=== PATIENT | male | born 1945 | race Caucasian/White ===

== ENCOUNTER → 2017-01-28 | Outpatient (CLI) | payer MEDICARE ==
--- NOTE | 2017-01-28 19:49 | MR ---
EXAMINATION TYPE: MR lumbar spine wo con DATE OF EXAM: 01/28/2017 7:03 PM COMPARISON: NONE HISTORY: LBP x 3 years, no trauma/surgery Multiplanar, MultiSpin echo imaging of the lumbar spine was performed. L1-L2: There is mild disc desiccation. Mild circumferential disc bulge greatest posteriorly. Minimal effacement ventral thecal sac. No evidence for herniation or central stenosis. Facet joint arthropath y with mild left foraminal encroachment. L2-L3: Severe disc desiccation. Circumferential disc bulge greatest posteriorly with effacement of th e ventral thecal sac. Constriction of the thecal sac without central stenosis at this time. Facet miguel nt arthropathy resulting in bilateral foraminal encroachment. L3 hemangioma. L3-L4: Severe disc desiccation. Circumferential disc bulge greatest posteriorly with effacement of th e ventral thecal sac. Constriction of the thecal sac without central stenosis at this time. Facet miguel nt arthropathy resulting in bilateral foraminal encroachment. L4-L5: Moderate to severe disc desiccation. Circumferential disc bulge. Hypertrophy of the ligamentum flavum and facet joint arthropathy result in moderate central stenosis. Bilateral foraminal encroach ment. L5-S1: Severe disc desiccation. Grade 1 anterolisthesis of 4 mm L5 on S1. Severe facet joint arthropa thy with left foraminal encroachment. Posterior disc bulge with annular tear. No evidence for rebcea h erniation or central stenosis. Lumbar segments are intact. No paraspinal masses are identified. Conus medullaris has a normal appe arance. Parapelvic right-sided renal cyst. IMPRESSION: 1. Low degenerative disc disease and disc bulging. 2. Moderate central stenosis at L4-5 as discussed above. 3. Grade 1 anterolisthesis L5 on S1.
== END | disposition home or self-care (01) ==
LOC: RADMRIMAIN 17:55
PROVIDERS: ATTEND Family Medicine
DX: M48.061 Spinal stenosis, lumbar region without neurogenic claudication (principal); M51.16 Intervertebral disc disorders with radiculopathy, lumbar region; M43.17 Spondylolisthesis, lumbosacral region
CPT/HCPCS: 72148

== ENCOUNTER → 2018-05-05 | Outpatient (CLI) | payer MEDICARE ==
--- NOTE | 2018-05-05 12:03 | MR ---
EXAMINATION TYPE: MR lumbar spine wo/w con DATE OF EXAM: 05/05/2018 COMPARISON: Prior MR lumbar spine 01/28/2017 HISTORY: LBP, center of back x 1-2 yrs TECHNIQUE: Multiplanar, multisequence images of the lumbar spine were acquired utilizing 10 mL intravenous Gadav ist gadolinium contrast. L1-L2: Posterior broad-based disc bulge causes mild anterior mass effect on the thecal sac. No signif icant central stenosis or foraminal encroachment. L2-L3: No significant central stenosis. There is a posterior broad-based disc bulge causing mild ante rior mass effect on the thecal sac. The scoliosis contributes with lateral extension endplate disc co mplex to cause some foraminal encroachment greater on the right. L3-L4: Posterior broad-based disc bulge is noted. No significant central stenosis. Circumferential ex tension of endplate disc complex encroaches somewhat on the neural foramen greater on the right. Foca l area of low signal on T1 and T2-weighted sequences present possibly extending from the posterior as pect of the L3 vertebral body at the level of the right neural foramen, possible calcification as on prior exam could be related to calcification, could be better seen on CT. There is facet arthropathy with hypertrophy ligamentum flavum. L4-L5: There is facet arthropathy with hypertrophy ligamentum flavum associated with a broad-based po sterior disc bulge, listhesis the results and moderate to severe central canal stenosis, circumferent ial extension of endplate disc complex contributes cause some foraminal encroachment bilaterally. L5-S1: Facet arthropathy changes present. There is a posterior broad-based disc bulge causing mild an terior mass effect on the thecal sac, possibly contact with the proximal S1 nerve root, listhesis con tributes to cause some encroachment of the neural foramen on the left. No significant central stenosi s. Lumbar segments are intact. No paraspinal masses are identified. Conus medullaris has a normal appe arance. There is loss of disc height and signal at intervertebral levels as on prior exam with associ ated endplate discogenic marrow signal change, multilevel vacuum phenomenon and spondylosis consisten t with disc desiccation and degenerative disc disease. Anterolisthesis grade 1 L5-S1, L4-5 as on prio r exam. There is a levoscoliosis in the lumbar spine as on prior. Probable cystic foci associated wit h the kidneys as on prior. Low signal focus within the posterior ilium on the left is stable. No abno rmal enhancement following contrast administration. IMPRESSION: Degenerative disc disease, facet arthropathy, foraminal encroachment as described, spinal stenosis as on prior exam. Additional findings above.
== END | disposition home or self-care (01) ==
LOC: RADMRIMAIN 09:54
PROVIDERS: ATTEND Family Medicine
DX: M48.061 Spinal stenosis, lumbar region without neurogenic claudication (principal); M51.26 Other intervertebral disc displacement, lumbar region; M51.27 Other intervertebral disc displacement, lumbosacral region; M51.36 Other intervertebral disc degeneration, lumbar region; M47.816 Spondylosis without myelopathy or radiculopathy, lumbar region; M47.16 Other spondylosis with myelopathy, lumbar region; M46.96 Unspecified inflammatory spondylopathy, lumbar region; M46.97 Unspecified inflammatory spondylopathy, lumbosacral region
CPT/HCPCS: 82565; 72158; 36415; A9585

== ENCOUNTER 2018-06-25 17:01 | Inpatient (IN) | payer MEDICARE ==
[2018-06-25] MEDS ORDERED: SODIUM CHLORIDE 0.9% 1,000 ML IV STA (17:25)
[2018-06-25] MEDS ORDERED: SODIUM CHLORIDE 0.9% 500 ML 500 ML IV STA (17:25)
--- NOTE | 2018-06-25 17:29 | ED ---
Weakness HPI - General Chief complaint: Weakness Stated complaint: Weakness Time Seen by Provider: 06/25/18 17:18 Source: patient, family, RN notes reviewed Mode of arrival: ambulatory Limitations: no limitations - History of Present Illness Initial comments: This is a 72-year-old male with a history of hypertension who states he's had nausea and vomiting for the past several days with decreased oral intake because he hasn't had an appetite. He states he does have some lightheadedness along with weakness no overt fevers or sweats he does state he has some chills couple days ago. he states his stool has been detailer color but he hasn't had much in way of bowel movement due to decreased oral intake he states his urine is darker than normal. Per his son was with him he is concerned because he looks yellow which is believed to begun yesterday. Also of note he did fall 3 days ago sustaining an abrasion and skin avulsion to his left forearm. No other injuries reported. No clicks palpitation cough phlegm production rhinorrhea or other symptoms. Patient is a nonsmoker nondrinker. MD Complaint: generalized weakness - Related Data Home Medications Medication Instructions Recorded Confirmed Irbesartan/Hydrochlorothiazide 1 tab PO DAILY 06/25/18 06/25/18 [Irbesartan-Hctz 300-12.5 mg Tb] Pravastatin Sodium [Pravachol] 10 mg PO DAILY 06/25/18 06/25/18 amLODIPine [Norvasc] 5 mg PO BID 06/25/18 06/25/18 Allergies Allergy/AdvReac Type Severity Reaction Status Date / Time No Known Allergies Allergy Verified 06/25/18 18:05 Review of Systems ROS Statement: Those systems with pertinent positive or pertinent negative responses have been documented in the HPI. ROS Other: All systems not noted in ROS Statement are negative. Past Medical History Past Medical History: Hypertension History of Any Multi-Drug Resistant Organisms: None Reported Past Surgical History: No Surgical Hx Reported Past Psychological History: No Psychological Hx Reported Smoking Status: Never smoker Past Alcohol Use History: None Reported Past Drug Use History: None Reported General Exam - General Exam Comments Initial Comments: This a well-developed well-nourished awake alert oriented 3 male who does have evidence of icterus Limitations: no limitations General appearance: alert, in no apparent distress Head exam: Present: atraumatic, normocephalic, normal inspection Eye exam: Present: PERRL, EOMI, scleral icterus. Absent: conjunctival injection, periorbital swelling ENT exam: Present: mucous membranes dry Neck exam: Present: normal inspection, full ROM, other (No stridor JVD or bruits). Absent: tenderness, meningismus, lymphadenopathy Respiratory exam: Present: normal lung sounds bilaterally. Absent: respiratory distress, wheezes, rales, rhonchi, stridor Cardiovascular Exam: Present: regular rate, normal rhythm, normal heart sounds. Absent: systolic murmur, diastolic murmur, rubs, gallop, clicks GI/Abdominal exam: Present: soft, normal bowel sounds. Absent: distended, tenderness, guarding, rebound, rigid, bruit, pulsatile mass (Some evidence of hepatomegaly) Rectal exam: Present: deferred Extremities exam: Present: normal inspection, full ROM, normal capillary refill. Absent: tenderness, pedal edema, joint swelling, calf tenderness Back exam: Present: normal inspection Neurological exam: Present: alert, oriented X3, CN II-XII intact Psychiatric exam: Present: normal affect, normal mood Skin exam: Present: warm, dry, intact, other (Evidence of icterus). Absent: normal color, rash Course Vital Signs 06/25/18 06/25/18 17:10 20:00 Temperature 98.4 F Pulse Rate 63 89 Respiratory 18 19 Rate Blood Pressure 130/87 113/84 O2 Sat by Pulse 95 97 Oximetry Medical Decision Making - Medical Decision Making I did reevaluate the patient on several occasions I did discuss [employer] him and his family. Patient does have evidence of acute pancreatitis also cholecystitis with cholelithiasis. I did discuss case Dr. Lyn surgery as well as GI will be consulted. Patient be placed on antibiotics. - Lab Data Result diagrams: 06/25/18 17:30 06/25/18 17:30 Lab Results 06/25/18 06/25/18 06/25/18 Range/Units 17:30 17:30 17:30 WBC (3.8-10.6) k/uL RBC (4.30-5.90) m/uL Hgb (13.0-17.5) gm/dL Hct (39.0-53.0) % MCV (80.0-100.0) fL MCH (25.0-35.0) pg MCHC (31.0-37.0) g/dL RDW (11.5-15.5) % Plt Count (150-450) k/uL Neutrophils % % Lymphocytes % % Monocytes % % Eosinophils % % Basophils % % Neutrophils # (1.3-7.7) k/uL Lymphocytes # (1.0-4.8) k/uL Monocytes # (0-1.0) k/uL Eosinophils # (0-0.7) k/uL Basophils # (0-0.2) k/uL Sodium 131 L (137-145) mmol/L Potassium 3.9 (3.5-5.1) mmol/L Chloride 98 (98-107) mmol/L Carbon Dioxide 22 (22-30) mmol/L Anion Gap 11 mmol/L BUN 24 H (9-20) mg/dL Creatinine 0.94 (0.66-1.25) mg/dL Est GFR (CKD-EPI)AfAm >90 (>60 ml/min/1.73 sqM) Est GFR (CKD-EPI)NonAf 80 (>60 ml/min/1.73 sqM) Glucose 149 H (74-99) mg/dL Calcium 9.8 (8.4-10.2) mg/dL Magnesium 1.9 (1.6-2.3) mg/dL Total Bilirubin 9.0 H (0.2-1.3) mg/dL AST 54 (17-59) U/L ALT 140 H (21-72) U/L Alkaline Phosphatase 206 H (38-126) U/L Ammonia 9 (<30) umol/L Total Creatine Kinase 39 L (55-170) U/L CK-MB (CK-2) 1.1 (0.0-2.4) ng/mL CK-MB (CK-2) Rel Index 2.8 Troponin I <0.012 (0.000-0.034) ng/mL Total Protein 6.8 (6.3-8.2) g/dL Albumin 3.7 (3.5-5.0) g/dL Amylase 240 H (30-110) U/L Lipase (23-300) U/L Hepatitis A IgM Ab 06/25/18 06/25/18 06/25/18 Range/Units 17:30 18:10 19:45 WBC 21.8 H (3.8-10.6) k/uL RBC 5.38 (4.30-5.90) m/uL Hgb 17.2 (13.0-17.5) gm/dL Hct 50.4 (39.0-53.0) % MCV 93.6 (80.0-100.0) fL MCH 32.0 (25.0-35.0) pg MCHC 34.2 (31.0-37.0) g/dL RDW 12.6 (11.5-15.5) % Plt Count 209 (150-450) k/uL Neutrophils % 89 % Lymphocytes % 4 % Monocytes % 4 % Eosinophils % 2 % Basophils % 0 % Neutrophils # 19.4 H (1.3-7.7) k/uL Lymphocytes # 0.9 L (1.0-4.8) k/uL Monocytes # 0.8 (0-1.0) k/uL Eosinophils # 0.4 (0-0.7) k/uL Basophils # 0.0 (0-0.2) k/uL Sodium (137-145) mmol/L Potassium (3.5-5.1) mmol/L Chloride (98-107) mmol/L Carbon Dioxide (22-30) mmol/L Anion Gap mmol/L BUN (9-20) mg/dL Creatinine (0.66-1.25) mg/dL Est GFR (CKD-EPI)AfAm (>60 ml/min/1.73 sqM) Est GFR (CKD-EPI)NonAf (>60 ml/min/1.73 sqM) Glucose (74-99) mg/dL Calcium (8.4-10.2) mg/dL Magnesium (1.6-2.3) mg/dL Total Bilirubin (0.2-1.3) mg/dL AST (17-59) U/L ALT (21-72) U/L Alkaline Phosphatase (38-126) U/L Ammonia (<30) umol/L Total Creatine Kinase (55-170) U/L CK-MB (CK-2) (0.0-2.4) ng/mL CK-MB (CK-2) Rel Index Troponin I (0.000-0.034) ng/mL Total Protein (6.3-8.2) g/dL Albumin (3.5-5.0) g/dL Amylase (30-110) U/L Lipase 2168 H (23-300) U/L Hepatitis A IgM Ab NEGATIVE - EKG Data -: EKG Interpreted by Me EKG shows normal: sinus rhythm (EKG showed sinus rhythm with first-degree AV block PVCs old inferior changes ventricular rate 95405 QRS duration 82 daily since QTC 332/421) - Radiology Data Radiology results: report reviewed (I did review the imaging and report chest x- ray was unremarkable for acute findings KUB did show evidence of a possible gallstone. Ultrasound showed thickened gallbladder wall suggestive of chronic and acute cholecystitis, bile duct was within normal limits.), image reviewed Disposition Clinical Impression: Acute pancreatitis, Cholecystitis, acute with cholelithiasis, Leukocytosis, Dehydration Disposition: ADMITTED IP TO THIS HOSP Condition: Fair Referrals: Alejandro Langley MD [Primary Care Provider] - 1-2 days
[2018-06-25 17:42] LABS: Basophils % (A) 0 %; Eosinophils # (A) 0.4 k/uL (0-0.7); Eosinophils % (A) 2 %; HCT 50.4 % (39.0-53.0); HGB 17.2 gm/dL (13.0-17.5); Lymphocytes # (A) 0.9 k/uL (1.0-4.8); Lymphocytes % (A) 4 %; MCHC 34.2 g/dL (31.0-37.0); MCV 93.6 fL (80.0-100.0); Mean Platelet Volume 6.5; Monocytes # (A) 0.8 k/uL (0-1.0); Monocytes % (A) 4 %; Neutrophils # (A) 19.4 k/uL (1.3-7.7); Neutrophils % (A) 89 %; Platelet Count 209 k/uL (150-450); RBC 5.38 m/uL (4.30-5.90); RDW 12.6 % (11.5-15.5); WBC 21.8 k/uL (3.8-10.6)
[2018-06-25 17:54] LABS: ALT 140 U/L (21-72); AST 54 U/L (17-59); Albumin 3.7 g/dL (3.5-5.0); Alkaline Phosphatase 206 U/L (38-126); Amylase 240 U/L (30-110); Anion Gap 11 mmol/L; Blood Urea Nitrogen 24 mg/dL (9-20); Calcium 9.8 mg/dL (8.4-10.2); Carbon Dioxide 22 mmol/L (22-30); Chloride 98 mmol/L (98-107); Glucose 149 mg/dL (74-99); Magnesium 1.9 mg/dL (1.6-2.3); Potassium 3.9 mmol/L (3.5-5.1); Sodium 131 mmol/L (137-145); Total Protein 6.8 g/dL (6.3-8.2)
[2018-06-25 17:57] LABS: Creatine Kinase 39 U/L (55-170)
--- NOTE | 2018-06-25 17:59 | XR ---
EXAMINATION TYPE: XR chest 2V DATE OF EXAM: 06/25/2018 COMPARISON: NONE HISTORY: Jaundice. Cough TECHNIQUE: Frontal and lateral views of the chest are obtained. FINDINGS: Heart is normal. Lungs are clear of consolidation. There is no pleural effusion. Thoracic aorta is atheromatous. Bony thorax is intact. IMPRESSION: No active cardiopulmonary disease. Atheromatous aorta.
--- NOTE | 2018-06-25 18:01 | XR ---
EXAMINATION TYPE: XR KUB DATE OF EXAM: 06/25/2018 COMPARISON: 01/26/2012 HISTORY: Jaundice TECHNIQUE: 2 views upright FINDINGS: There is no sign of intestinal obstruction or pneumoperitoneum. Fecal pattern is normal. Th ere is a 2.5 cm rounded calcification in the right upper quadrant. There is no sign of a mass. IMPRESSION: Right upper quadrant calcification could relate to calcified gallstone. There appears to be multiple small calcified gallstones on the old exam that are not present on today's exam.
[2018-06-25 18:10] LABS: Creatine Kinase MB 1.1 ng/mL (0.0-2.4); Troponin I <0.012 ng/mL (0.000-0.034)
[2018-06-25 19:00] LABS: Hepatitis A AB IgM Index 0.02; Hepatitis A Antibody IgM NEGATIVE
--- NOTE | 2018-06-25 19:41 | US ---
EXAMINATION TYPE: US gallbladder DATE OF EXAM: 06/25/2018 COMPARISON: NONE CLINICAL HISTORY: Pain. Jaundice. EXAM MEASUREMENTS: Liver Length: 16.0 cm Gallbladder Wall: 0.4 cm CBD: 0.6 cm Right Kidney: 12.0 x 4.8 x 4.3 cm Pancreas: Obscured by bowel gas Liver: Increased attenuation Gallbladder: Stones seen. Wall thickened. Evidence for sonographic Alonso's sign: No CBD: wnl Right Kidney: wnl IMPRESSION: Multiple gallstones. Mild gallbladder wall thickening consistent with acute and chronic c holecystitis. No dilated ducts.
[2018-06-25] MEDS ORDERED: PIPERACILLIN-TAZOBACTAM 3.375 GM in SODIUM CHLORIDE 0.9% 100 ML IVPB STA (20:57)
[2018-06-25] MEDS ORDERED: NALOXONE 0.4 MG/ML 1 ML VIAL IV PRN (20:57)
[2018-06-25] MEDS ORDERED: ONDANSETRON 4 MG/2 ML VIAL IVP PRN (21:02)
--- NOTE | 2018-06-25 21:10 | ED ---
Medical Decision Making - Lab Data Result diagrams: 06/25/18 17:30 06/25/18 17:30 Lab Results 06/25/18 06/25/18 06/25/18 Range/Units 17:30 17:30 17:30 WBC (3.8-10.6) k/uL RBC (4.30-5.90) m/uL Hgb (13.0-17.5) gm/dL Hct (39.0-53.0) % MCV (80.0-100.0) fL MCH (25.0-35.0) pg MCHC (31.0-37.0) g/dL RDW (11.5-15.5) % Plt Count (150-450) k/uL Neutrophils % % Lymphocytes % % Monocytes % % Eosinophils % % Basophils % % Neutrophils # (1.3-7.7) k/uL Lymphocytes # (1.0-4.8) k/uL Monocytes # (0-1.0) k/uL Eosinophils # (0-0.7) k/uL Basophils # (0-0.2) k/uL Sodium 131 L (137-145) mmol/L Potassium 3.9 (3.5-5.1) mmol/L Chloride 98 (98-107) mmol/L Carbon Dioxide 22 (22-30) mmol/L Anion Gap 11 mmol/L BUN 24 H (9-20) mg/dL Creatinine 0.94 (0.66-1.25) mg/dL Est GFR (CKD-EPI)AfAm >90 (>60 ml/min/1.73 sqM) Est GFR (CKD-EPI)NonAf 80 (>60 ml/min/1.73 sqM) Glucose 149 H (74-99) mg/dL Calcium 9.8 (8.4-10.2) mg/dL Magnesium 1.9 (1.6-2.3) mg/dL Total Bilirubin 9.0 H (0.2-1.3) mg/dL AST 54 (17-59) U/L ALT 140 H (21-72) U/L Alkaline Phosphatase 206 H (38-126) U/L Ammonia 9 (<30) umol/L Total Creatine Kinase 39 L (55-170) U/L CK-MB (CK-2) 1.1 (0.0-2.4) ng/mL CK-MB (CK-2) Rel Index 2.8 Troponin I <0.012 (0.000-0.034) ng/mL Total Protein 6.8 (6.3-8.2) g/dL Albumin 3.7 (3.5-5.0) g/dL Amylase 240 H (30-110) U/L Lipase (23-300) U/L Hepatitis A IgM Ab 06/25/18 06/25/18 06/25/18 Range/Units 17:30 18:10 19:45 WBC 21.8 H (3.8-10.6) k/uL RBC 5.38 (4.30-5.90) m/uL Hgb 17.2 (13.0-17.5) gm/dL Hct 50.4 (39.0-53.0) % MCV 93.6 (80.0-100.0) fL MCH 32.0 (25.0-35.0) pg MCHC 34.2 (31.0-37.0) g/dL RDW 12.6 (11.5-15.5) % Plt Count 209 (150-450) k/uL Neutrophils % 89 % Lymphocytes % 4 % Monocytes % 4 % Eosinophils % 2 % Basophils % 0 % Neutrophils # 19.4 H (1.3-7.7) k/uL Lymphocytes # 0.9 L (1.0-4.8) k/uL Monocytes # 0.8 (0-1.0) k/uL Eosinophils # 0.4 (0-0.7) k/uL Basophils # 0.0 (0-0.2) k/uL Sodium (137-145) mmol/L Potassium (3.5-5.1) mmol/L Chloride (98-107) mmol/L Carbon Dioxide (22-30) mmol/L Anion Gap mmol/L BUN (9-20) mg/dL Creatinine (0.66-1.25) mg/dL Est GFR (CKD-EPI)AfAm (>60 ml/min/1.73 sqM) Est GFR (CKD-EPI)NonAf (>60 ml/min/1.73 sqM) Glucose (74-99) mg/dL Calcium (8.4-10.2) mg/dL Magnesium (1.6-2.3) mg/dL Total Bilirubin (0.2-1.3) mg/dL AST (17-59) U/L ALT (21-72) U/L Alkaline Phosphatase (38-126) U/L Ammonia (<30) umol/L Total Creatine Kinase (55-170) U/L CK-MB (CK-2) (0.0-2.4) ng/mL CK-MB (CK-2) Rel Index Troponin I (0.000-0.034) ng/mL Total Protein (6.3-8.2) g/dL Albumin (3.5-5.0) g/dL Amylase (30-110) U/L Lipase 2168 H (23-300) U/L Hepatitis A IgM Ab NEGATIVE Disposition Clinical Impression: Acute pancreatitis, Cholecystitis, acute with cholelithiasis, Leukocytosis, Dehydration, Jaundice Disposition: ADMITTED IP TO THIS HOSP Condition: Fair Referrals: Alejandro Langley MD [Primary Care Provider] - 1-2 days
[2018-06-25] MEDS: HYDROmorphone 0.5 MG/0.5 ML SYRINGE IVP PRN (21:33)
[2018-06-25] MEDS: SODIUM CHLORIDE 0.9% 1,000 ML IV SCH (23:25)
[2018-06-26 03:50] LABS: Hepatitis B Core IgM Non-Reactive (Non-Reactive)
[2018-06-26 04:23] LABS: Appearance,Urine Cloudy (Clear); Bilirubin,Urine 1+ (Negative); Blood,Urine Moderate (Negative); Color,Urine Dark Brown; Glucose,Urine (UA) Negative (Negative); Granular Casts,Urine 16 /lpf (0); Hyaline Casts,Urine 224 /lpf (0-2); Ketones,Urine 1+ (Negative); Leukocyte Esterase,Urine Large (Negative); Mucus,Urine Many /hpf; Nitrite,Urine Negative (Negative); PH, Urine 5.5 (5.0-8.0); Protein,Urine 1+ (Negative); RBC,Urine >182 /hpf (0-5); Specific Gravity,Urine 1.028 (1.001-1.035); Squamous Epithelial Cell,Urine 1 /hpf (0-4); Urobilinogen,Urine <2.0 mg/dL (<2.0); WBC,Urine 101 /hpf (0-5)
[2018-06-26] MEDS: SODIUM CHLORIDE 0.9% 1,000 ML IV SCH ×3 (05:33→22:15)
[2018-06-26] MEDS: PIPERACILLIN-TAZOBACTAM 3.375 GM in SODIUM CHLORIDE 0.9% 100 ML IVPB SCH ×2 (07:16→16:36)
--- NOTE | 2018-06-26 09:51 | P.CONS ---
History of Present Illness - Reason for Consult Consult date: 06/26/18 Jaundice pancreatitis Requesting physician: Blayne Lyn - Chief Complaint Jaundice - History of Present Illness 72-year-old gentleman with no significant past medical history, hypertension, presents with acute onset of painless jaundice without fever chills hematemesis hematochezia or melena. Patient was last few days yellowing of the skin with dark colored urine. 5 pound weight loss over last week no appetite changes. No history of known liver disorders. No history of pancreatitis or hepatitis or jaundice. No changes in medications. No history of alcoholism. Admission white count 21.8. Hemoglobin 17.2. BUN 24. Creatinine 0.9. Total bilirubin 9. AST 54. ALT 140. AP 206. Ammonia 9. Lipase 2168. Amylase 240. Hepatitis screen nonreactive. Ultrasound abdomen multiple gallstones with mild gallbladder wall thickening consistent with acute and chronic cholecystitis. No dilated ducts. CBD 0.6 m. Review of Systems Constitutional: Denies fever, chills, sweats, weight gain, or loss. HEENT: Negative for migraines, blurred vision or loss, earaches, drainage, tinnitus, oral mucosal lesions, dysphagia, or odynophagia. Cardiac: Negative for chest pain, arrhythmias, or palpitation. Respiratory: Negative for shortness of breath, hemoptysis, cough, or sputum production. Gastrointestinal: See HPI for pertinent findings. Genitourinary: Negative for hematuria, urgency, frequency, polyuria, dysuria, or penile discharge. Musculoskeletal: Negative for muscle aches, swelling, arthritis, and arthralgias. Neurologic: Negative for stroke or TIA. Endocrine: Negative for thyroid problems. Skin: Negative for rash or itching. Psychiatric: Negative history for depression and anxiety Past Medical History Past Medical History: Hypertension Additional Past Medical History / Comment(s): degenerative back disease History of Any Multi-Drug Resistant Organisms: None Reported Past Surgical History: No Surgical Hx Reported Past Anesthesia/Blood Transfusion Reactions: No Reported Reaction, Unable to Obtain Past Psychological History: No Psychological Hx Reported Smoking Status: Never smoker Past Alcohol Use History: None Reported Past Drug Use History: None Reported - Past Family History Mother Family Medical History: No Reported History Father History Unknown: Yes Family Medical History: Cancer, Hypertension, Pneumonia Additional Family Medical History / Comment(s): prostate cancer Medications and Allergies Home Medications Medication Instructions Recorded Confirmed Type Irbesartan/Hydrochlorothiazide 1 tab PO DAILY 06/25/18 06/25/18 History [Irbesartan-Hctz 300-12.5 mg Tb] Pravastatin Sodium [Pravachol] 10 mg PO DAILY 06/25/18 06/25/18 History amLODIPine [Norvasc] 5 mg PO BID 06/25/18 06/25/18 History Allergies Allergy/AdvReac Type Severity Reaction Status Date / Time No Known Allergies Allergy Verified 06/25/18 18:05 Physical Exam Vitals: Vital Signs Temp Pulse Pulse Resp BP BP Pulse Ox 06/26/18 07:28 98.3 F 76 16 123/78 94 L 06/26/18 03:55 18 06/26/18 01:30 98.0 F 76 17 129/75 95 06/26/18 00:05 18 06/25/18 22:25 97.9 F 95 20 156/95 94 L 06/25/18 22:13 118/92 06/25/18 22:00 91 13 143/106 93 L 06/25/18 21:00 89 23 122/84 97 06/25/18 20:00 89 19 113/84 97 06/25/18 17:10 98.4 F 63 18 130/87 95 Intake and Output 06/25/18 06/26/18 06/26/18 22:59 06:59 14:59 Output Total 625 Balance -625 Output: Urine 625 Other: # Voids 1 Weight 106.594 kg General appearance: The patient is alert, oriented, in no acute distress. Jaundice. HET: Head is normocephalic and atraumatic. Pupils are equal and reactive. Sclerae icterus. Oropharynx is clear without lesions. Neck: Supple without lymphadenopathy. Trachea midline. Heart: S1 S2. Regular rate and rhythm. Lungs: No crackles or wheezes are heard. Abdomen: Soft, nontender, nondistended with bowel sounds. No peritoneal signs. No palpable organomegaly or masses. Extremities: Normal skin color and turgor. No cyanosis, rash, ulceration, clubbing, or edema. Radial and pedal pulses are 2/4 bilaterally. Neurological: No focal deficits. Strength and sensation are grossly intact. Results CBC & Chem 7: 06/25/18 17:30 06/25/18 17:30 Labs: Abnormal Lab Results - Last 24 Hours (Table) 06/25/18 06/25/18 06/25/18 Range/Units 17:30 17:30 17:30 WBC 21.8 H (3.8-10.6) k/uL Neutrophils # 19.4 H (1.3-7.7) k/uL Lymphocytes # 0.9 L (1.0-4.8) k/uL Sodium 131 L (137-145) mmol/L BUN 24 H (9-20) mg/dL Glucose 149 H (74-99) mg/dL Total Bilirubin 9.0 H (0.2-1.3) mg/dL ALT 140 H (21-72) U/L Alkaline Phosphatase 206 H (38-126) U/L Total Creatine Kinase 39 L (55-170) U/L Amylase 240 H (30-110) U/L Lipase (23-300) U/L Urine Protein (Negative) Urine Ketones (Negative) Urine Blood (Negative) Urine Bilirubin (Negative) Ur Leukocyte Esterase (Negative) Urine RBC (0-5) /hpf Urine WBC (0-5) /hpf Hyaline Casts (0-2) /lpf Urine Mucus (None) /hpf 06/25/18 06/26/18 Range/Units 19:45 02:25 WBC (3.8-10.6) k/uL Neutrophils # (1.3-7.7) k/uL Lymphocytes # (1.0-4.8) k/uL Sodium (137-145) mmol/L BUN (9-20) mg/dL Glucose (74-99) mg/dL Total Bilirubin (0.2-1.3) mg/dL ALT (21-72) U/L Alkaline Phosphatase (38-126) U/L Total Creatine Kinase (55-170) U/L Amylase (30-110) U/L Lipase 2168 H (23-300) U/L Urine Protein 1+ H (Negative) Urine Ketones 1+ H (Negative) Urine Blood Moderate H (Negative) Urine Bilirubin 1+ H (Negative) Ur Leukocyte Esterase Large H (Negative) Urine RBC >182 H (0-5) /hpf Urine WBC 101 H (0-5) /hpf Hyaline Casts 224 H (0-2) /lpf Urine Mucus Many H (None) /hpf US - abdomen: report reviewed (Dr. Gonsales) Assessment and Plan (1) Jaundice Narrative/Plan: 72-year-old gentleman admitted with acute onset of painless obstructive jaundice, leukocytosis, acute pancreatitis with elevated liver function tests hyperbilirubinemia. Ultrasound reported multiple gallstones with no dilation of biliary ducts. Differentials to consider but not excluded choledocholithiasis possible biliary stricture disease possible neoplasm. Current Visit: Yes Status: Acute Code(s): R17 - UNSPECIFIED JAUNDICE SNOMED Code(s): 27678053 Plan: 1. Daily CBC CMP lipase. We'll check PT/INR. CT abdomen and pelvis with IV contrast ordered. ERCP versus MRCP based on clinical course. 2. Protonix 40 mg daily. Nothing by mouth except medications until CT can be reviewed. Will obtain CA-19-9 and CEA. IV antibiotics. Thank you for this kind referral and the opportunity to participate in the care of your patient. This consultation was discussed with Dr. Gonsales. The impression and plan of care have been directed as dictated.
[2018-06-26 09:53] LABS: Basophils % (A) 0 %; Eosinophils # (A) 0.3 k/uL (0-0.7); Eosinophils % (A) 2 %; HCT 47.4 % (39.0-53.0); HGB 16.2 gm/dL (13.0-17.5); Lymphocytes # (A) 0.8 k/uL (1.0-4.8); Lymphocytes % (A) 5 %; MCH 31.9 pg (25.0-35.0); MCHC 34.2 g/dL (31.0-37.0); MCV 93.3 fL (80.0-100.0); Mean Platelet Volume 6.9; Monocytes # (A) 0.8 k/uL (0-1.0); Monocytes % (A) 5 %; Neutrophils # (A) 14.2 k/uL (1.3-7.7); Neutrophils % (A) 87 %; Platelet Count 202 k/uL (150-450); RBC 5.08 m/uL (4.30-5.90); RDW 13.7 % (11.5-15.5); WBC 16.2 k/uL (3.8-10.6)
[2018-06-26 10:02] LABS: ALT 103 U/L (21-72); AST 30 U/L (17-59); Albumin 3.1 g/dL (3.5-5.0); Alkaline Phosphatase 150 U/L (38-126); Anion Gap 10 mmol/L; Blood Urea Nitrogen 21 mg/dL (9-20); Carbon Dioxide 25 mmol/L (22-30); Chloride 99 mmol/L (98-107); Glucose 100 mg/dL (74-99); Lipase 1146 U/L (23-300); Potassium 4.2 mmol/L (3.5-5.1); Sodium 134 mmol/L (137-145)
--- NOTE | 2018-06-26 10:06 | P.GSCN ---
<Christen Nair - Last Filed: 06/26/18 09:59> History of Present Illness Consult date: 06/26/18 Reason for Consult: Jaundice, pancreatitis Requesting physician: Flaquito Patino History of present illness: CHIEF COMPLAINT: Jaundice HISTORY OF PRESENT ILLNESS: 72-year-old male who presented to the emergency room due to jaundice. Patient reports his daughters notice his skin was turning more yellow over the past 3-4 days and advised him to come to the emergency room for further evaluation. Patient denies abdominal pain. He does report on Friday of this week he was experiencing nausea and 2 small episodes of vomiting. Patient reports decreased appetite and states he has had decreased oral intake since Friday. Reports dark urine. Last BM was friday and was normal in characteristics per patient. Denies fever or chills. Denies alcohol use. PAST MEDICAL HISTORY: See list. PAST SURGICAL HISTORY: See list. SOCIAL HISTORY: No illicit drug use. REVIEW OF SYSTEMS: CONSTITUTIONAL: Denies fever or chills. HEENT: Denies blurred vision, vision changes, or eye pain. Denies hemoptysis CARDIOVASCULAR: Denies chest pain or pressure. RESPIRATORY: No shortness of breath. GASTROINTESTINAL: Refer to HPI for pertinent findings HEMATOLOGIC: Denies bleeding disorders. GENITOURINARY: Denies any blood in urine. Reports dark urine. SKIN: Denies pruitis. Denies rash. Reports jaundice. PHYSICAL EXAM: VITAL SIGNS: Reviewed. GENERAL: Well-developed in no acute distress. HEENT: Bilateral sclera icterus. Extraocular movements grossly intact. Moist buccal mucosa. Head is atraumatic, normocephalic. ABDOMEN: Soft. Nondistended. Nontender. Positive bowel sounds. NEUROLOGIC: Alert and oriented. Cranial nerves II through XII grossly intact. SKIN: Jaundiced LABORATORY DATA: Labs on admission revealed white count 21.8. Hemoglobin 17.2. Total bilirubin 9.0. AST 54. ALT 140. Alkaline phosphatase 206. Amylase 240. Lipase 2160. IMAGING: Abdominal ultrasound: Increased attenuation of liver. Gallbladder with multiple stones. Mild gallbladder wall thickening consistent with acute and chronic cholecystitis. No dilated ducts. Negative Alonso sign. ASSESSMENT: 1. Acute and chronic cholecystitis, US with cholelithiasis and gallbladder wall thickening 2. Acute pancreatitis 3. Elevated LFTs 4. Hyperbilirubinemia 5. Jaundice 6. Leukocytosis PLAN: 1. NPO. Continue IV fluids 2. Monitor labs 3. No immediate plans for laparoscopic cholecystectomy 4. Await GI consultation Nurse practitioner note has been reviewed by physician. Signing provider agrees with the documented findings, assessment, and plan of care. Past Medical History Past Medical History: Hypertension Additional Past Medical History / Comment(s): degenerative back disease History of Any Multi-Drug Resistant Organisms: None Reported Past Surgical History: No Surgical Hx Reported Past Anesthesia/Blood Transfusion Reactions: No Reported Reaction, Unable to Obtain Past Psychological History: No Psychological Hx Reported Smoking Status: Never smoker Past Alcohol Use History: None Reported Past Drug Use History: None Reported - Past Family History Mother Family Medical History: No Reported History Father History Unknown: Yes Family Medical History: Cancer, Hypertension, Pneumonia Additional Family Medical History / Comment(s): prostate cancer Medications and Allergies Home Medications Medication Instructions Recorded Confirmed Type Irbesartan/Hydrochlorothiazide 1 tab PO DAILY 06/25/18 06/25/18 History [Irbesartan-Hctz 300-12.5 mg Tb] Pravastatin Sodium [Pravachol] 10 mg PO DAILY 06/25/18 06/25/18 History amLODIPine [Norvasc] 5 mg PO BID 06/25/18 06/25/18 History Allergies Allergy/AdvReac Type Severity Reaction Status Date / Time No Known Allergies Allergy Verified 06/25/18 18:05 Surgical - Exam Vital Signs Temp Pulse Resp BP Pulse Ox 98.4 F 63 18 130/87 95 06/25/18 17:10 06/25/18 17:10 06/25/18 17:10 06/25/18 17:10 06/25/18 17:10 Results - Labs 06/26/18 09:16 06/25/18 17:30 Abnormal Lab Results - Last 24 Hours (Table) 06/25/18 06/25/18 06/25/18 Range/Units 17:30 17:30 17:30 WBC 21.8 H (3.8-10.6) k/uL Neutrophils # 19.4 H (1.3-7.7) k/uL Lymphocytes # 0.9 L (1.0-4.8) k/uL Sodium 131 L (137-145) mmol/L BUN 24 H (9-20) mg/dL Glucose 149 H (74-99) mg/dL Total Bilirubin 9.0 H (0.2-1.3) mg/dL ALT 140 H (21-72) U/L Alkaline Phosphatase 206 H (38-126) U/L Total Creatine Kinase 39 L (55-170) U/L Amylase 240 H (30-110) U/L Lipase (23-300) U/L Urine Protein (Negative) Urine Ketones (Negative) Urine Blood (Negative) Urine Bilirubin (Negative) Ur Leukocyte Esterase (Negative) Urine RBC (0-5) /hpf Urine WBC (0-5) /hpf Hyaline Casts (0-2) /lpf Urine Mucus (None) /hpf 06/25/18 06/26/18 Range/Units 19:45 02:25 WBC (3.8-10.6) k/uL Neutrophils # (1.3-7.7) k/uL Lymphocytes # (1.0-4.8) k/uL Sodium (137-145) mmol/L BUN (9-20) mg/dL Glucose (74-99) mg/dL Total Bilirubin (0.2-1.3) mg/dL ALT (21-72) U/L Alkaline Phosphatase (38-126) U/L Total Creatine Kinase (55-170) U/L Amylase (30-110) U/L Lipase 2168 H (23-300) U/L Urine Protein 1+ H (Negative) Urine Ketones 1+ H (Negative) Urine Blood Moderate H (Negative) Urine Bilirubin 1+ H (Negative) Ur Leukocyte Esterase Large H (Negative) Urine RBC >182 H (0-5) /hpf Urine WBC 101 H (0-5) /hpf Hyaline Casts 224 H (0-2) /lpf Urine Mucus Many H (None) /hpf Diabetes panel 06/25/18 Range/Units 17:30 Sodium 131 L (137-145) mmol/L Potassium 3.9 (3.5-5.1) mmol/L Chloride 98 (98-107) mmol/L Carbon Dioxide 22 (22-30) mmol/L BUN 24 H (9-20) mg/dL Creatinine 0.94 (0.66-1.25) mg/dL Glucose 149 H (74-99) mg/dL Calcium 9.8 (8.4-10.2) mg/dL AST 54 (17-59) U/L ALT 140 H (21-72) U/L Alkaline Phosphatase 206 H (38-126) U/L Total Protein 6.8 (6.3-8.2) g/dL Albumin 3.7 (3.5-5.0) g/dL Calcium panel 06/25/18 Range/Units 17:30 Calcium 9.8 (8.4-10.2) mg/dL Albumin 3.7 (3.5-5.0) g/dL Pituitary panel 06/25/18 Range/Units 17:30 Sodium 131 L (137-145) mmol/L Potassium 3.9 (3.5-5.1) mmol/L Chloride 98 (98-107) mmol/L Carbon Dioxide 22 (22-30) mmol/L BUN 24 H (9-20) mg/dL Creatinine 0.94 (0.66-1.25) mg/dL Glucose 149 H (74-99) mg/dL Calcium 9.8 (8.4-10.2) mg/dL Adrenal panel 06/25/18 Range/Units 17:30 Sodium 131 L (137-145) mmol/L Potassium 3.9 (3.5-5.1) mmol/L Chloride 98 (98-107) mmol/L Carbon Dioxide 22 (22-30) mmol/L BUN 24 H (9-20) mg/dL Creatinine 0.94 (0.66-1.25) mg/dL Glucose 149 H (74-99) mg/dL Calcium 9.8 (8.4-10.2) mg/dL Total Bilirubin 9.0 H (0.2-1.3) mg/dL AST 54 (17-59) U/L ALT 140 H (21-72) U/L Alkaline Phosphatase 206 H (38-126) U/L Total Protein 6.8 (6.3-8.2) g/dL Albumin 3.7 (3.5-5.0) g/dL <Ronnie Potts - Last Filed: 06/26/18 14:55> History of Present Illness History of present illness: As above. Patient with presentation of painless jaundice. No biliary dilation or abnormal mass on CAT scan. Await MRCP ordered for later today. Will remain on surgical standby. Surgical - Exam Vital Signs Temp Pulse Resp BP Pulse Ox 98.4 F 63 18 130/87 95 06/25/18 17:10 06/25/18 17:10 06/25/18 17:10 06/25/18 17:10 06/25/18 17:10 Results - Labs 06/26/18 09:16 06/26/18 09:16 Abnormal Lab Results - Last 24 Hours (Table) 06/25/18 06/25/18 06/25/18 Range/Units 17:30 17:30 17:30 WBC 21.8 H (3.8-10.6) k/uL Neutrophils # 19.4 H (1.3-7.7) k/uL Lymphocytes # 0.9 L (1.0-4.8) k/uL Sodium 131 L (137-145) mmol/L BUN 24 H (9-20) mg/dL Glucose 149 H (74-99) mg/dL Total Bilirubin 9.0 H (0.2-1.3) mg/dL ALT 140 H (21-72) U/L Alkaline Phosphatase 206 H (38-126) U/L Total Creatine Kinase 39 L (55-170) U/L Total Protein (6.3-8.2) g/dL Albumin (3.5-5.0) g/dL Amylase 240 H (30-110) U/L Lipase (23-300) U/L Urine Protein (Negative) Urine Ketones (Negative) Urine Blood (Negative) Urine Bilirubin (Negative) Ur Leukocyte Esterase (Negative) Urine RBC (0-5) /hpf Urine WBC (0-5) /hpf Hyaline Casts (0-2) /lpf Urine Mucus (None) /hpf 06/25/18 06/26/18 06/26/18 Range/Units 19:45 02:25 09:16 WBC 16.2 H (3.8-10.6) k/uL Neutrophils # 14.2 H (1.3-7.7) k/uL Lymphocytes # 0.8 L (1.0-4.8) k/uL Sodium (137-145) mmol/L BUN (9-20) mg/dL Glucose (74-99) mg/dL Total Bilirubin (0.2-1.3) mg/dL ALT (21-72) U/L Alkaline Phosphatase (38-126) U/L Total Creatine Kinase (55-170) U/L Total Protein (6.3-8.2) g/dL Albumin (3.5-5.0) g/dL Amylase (30-110) U/L Lipase 2168 H (23-300) U/L Urine Protein 1+ H (Negative) Urine Ketones 1+ H (Negative) Urine Blood Moderate H (Negative) Urine Bilirubin 1+ H (Negative) Ur Leukocyte Esterase Large H (Negative) Urine RBC >182 H (0-5) /hpf Urine WBC 101 H (0-5) /hpf Hyaline Casts 224 H (0-2) /lpf Urine Mucus Many H (None) /hpf 06/26/18 Range/Units 09:16 WBC (3.8-10.6) k/uL Neutrophils # (1.3-7.7) k/uL Lymphocytes # (1.0-4.8) k/uL Sodium 134 L (137-145) mmol/L BUN 21 H (9-20) mg/dL Glucose 100 H (74-99) mg/dL Total Bilirubin 6.0 H (0.2-1.3) mg/dL ALT 103 H (21-72) U/L Alkaline Phosphatase 150 H (38-126) U/L Total Creatine Kinase (55-170) U/L Total Protein 6.0 L (6.3-8.2) g/dL Albumin 3.1 L (3.5-5.0) g/dL Amylase (30-110) U/L Lipase 1146 H (23-300) U/L Urine Protein (Negative) Urine Ketones (Negative) Urine Blood (Negative) Urine Bilirubin (Negative) Ur Leukocyte Esterase (Negative) Urine RBC (0-5) /hpf Urine WBC (0-5) /hpf Hyaline Casts (0-2) /lpf Urine Mucus (None) /hpf Diabetes panel 06/25/18 06/26/18 Range/Units 17:30 09:16 Sodium 131 L 134 L (137-145) mmol/L Potassium 3.9 4.2 (3.5-5.1) mmol/L Chloride 98 99 (98-107) mmol/L Carbon Dioxide 22 25 (22-30) mmol/L BUN 24 H 21 H (9-20) mg/dL Creatinine 0.94 0.71 (0.66-1.25) mg/dL Glucose 149 H 100 H (74-99) mg/dL Calcium 9.8 9.0 (8.4-10.2) mg/dL AST 54 30 (17-59) U/L ALT 140 H 103 H (21-72) U/L Alkaline Phosphatase 206 H 150 H (38-126) U/L Total Protein 6.8 6.0 L (6.3-8.2) g/dL Albumin 3.7 3.1 L (3.5-5.0) g/dL Calcium panel 06/25/18 06/26/18 Range/Units 17:30 09:16 Calcium 9.8 9.0 (8.4-10.2) mg/dL Albumin 3.7 3.1 L (3.5-5.0) g/dL Pituitary panel 06/25/18 06/26/18 Range/Units 17:30 09:16 Sodium 131 L 134 L (137-145) mmol/L Potassium 3.9 4.2 (3.5-5.1) mmol/L Chloride 98 99 (98-107) mmol/L Carbon Dioxide 22 25 (22-30) mmol/L BUN 24 H 21 H (9-20) mg/dL Creatinine 0.94 0.71 (0.66-1.25) mg/dL Glucose 149 H 100 H (74-99) mg/dL Calcium 9.8 9.0 (8.4-10.2) mg/dL Adrenal panel 06/25/18 06/26/18 Range/Units 17:30 09:16 Sodium 131 L 134 L (137-145) mmol/L Potassium 3.9 4.2 (3.5-5.1) mmol/L Chloride 98 99 (98-107) mmol/L Carbon Dioxide 22 25 (22-30) mmol/L BUN 24 H 21 H (9-20) mg/dL Creatinine 0.94 0.71 (0.66-1.25) mg/dL Glucose 149 H 100 H (74-99) mg/dL Calcium 9.8 9.0 (8.4-10.2) mg/dL Total Bilirubin 9.0 H 6.0 H (0.2-1.3) mg/dL AST 54 30 (17-59) U/L ALT 140 H 103 H (21-72) U/L Alkaline Phosphatase 206 H 150 H (38-126) U/L Total Protein 6.8 6.0 L (6.3-8.2) g/dL Albumin 3.7 3.1 L (3.5-5.0) g/dL
--- NOTE | 2018-06-26 10:12 | CT ---
EXAMINATION TYPE: CT abdomen pelvis w con DATE OF EXAM: 06/26/2018 COMPARISON: None HISTORY: Pancreatitis, jaundice. CT DLP: 1710.1 mGycm CONTRAST: CT scan of the abdomen and pelvis is performed without Oral Contrast and with IV Contrast, patient in jected with 100 mL of Isovue 370. FINDINGS: LUNG BASES-: No visible nodule. No infiltrate. LIVER/GB: There is evidence of cholelithiasis. No space occupying hepatic lesion. Biliary tree is of normal caliber. PANCREAS: There is mild surrounding peripancreatic attenuation. Correlate for mild acute pancreatitis . Correlate with amylase and lipase. SPLEEN: No splenic enlargement. No lesion seen. ADRENALS: No nodule. No thickening. KIDNEYS/BLADDER: Large calculus in the region of the right renal pelvis measuring 2.3 cm. There is mi ld hydronephrosis noted. Additional smaller calculus lower pole right kidney measuring 3 mm. No left- sided renal calculi. Simple cyst upper pole left kidney. No distinct renal mass. Urinary bladder roge ssly unremarkable. BOWEL: There is a small sliding-type hiatal hernia. Normal appendix. Normal bowel caliber. No infla mmation. GENITAL ORGANS: No gross abnormality. LYMPH NODES: No greater than 1cm abdominal or pelvic lymph nodes are appreciated. AORTA: No significant abnormality. OSSEOUS STRUCTURES: No significant abnormality is seen. OTHER: No significant additional abnormality is seen. IMPRESSION: 1. Findings felt to reflect mild acute pancreatitis. 2. Large calculus right renal pelvis resulting in mild right-sided hydronephrosis. 3. Cholelithiasis.
[2018-06-26] MEDS: ENOXAPARIN 40 MG/0.4 ML SYRINGE SQ SCH (11:20)
[2018-06-26 15:13] LABS: Bilirubin, Conjugated 0.7 mg/dL (0.0-0.3); Bilirubin, Delta 1.4 mg/dL (0.0-0.2); Bilirubin,Unconjugated 3.6 mg/dL (0.0-1.1); Total Bilirubin 5.7 mg/dL (0.2-1.3)
[2018-06-26] MEDS ORDERED: HYDROCHLOROTHIAZIDE PO SCH (18:45)
[2018-06-26] MEDS ORDERED: [UNRECOGNIZED DRUG - OTHER] PO SCH (18:45)
[2018-06-26] MEDS ORDERED: IRBESARTAN PO SCH (18:45)
--- NOTE | 2018-06-26 19:38 | HP ---
HISTORY AND PHYSICAL DATE OF ADMISSION: 06/25/2018 DATE OF SERVICE: 06/26/2018 PRESENTING COMPLAINT: Nausea, vomiting. HISTORY OF PRESENTING COMPLAINT: This is a very pleasant 72-year-old patient of Dr. Langley out of [place]. Chronic stable medical conditions include hypertension, osteoarthritis, hyperlipidemia, especially the former of the lower back pain, due to go down for surgery at some point. Patient presents with 2 days of nausea, vomiting small amounts; had chills for about 2 hours. Last bowel movement was 5 days ago. Normally he has a bowel movement otherwise daily. Patient's last stool was actually very light in color. Denied any obvious fevers. Presented to the ER. No respiratory symptoms. Patient's son and daughter are present. REVIEW OF SYSTEMS: CONSTITUTIONAL: Chills. Tired. HEENT: None. RESPIRATORY: None. CARDIOVASCULAR: None. GASTROINTESTINAL: As above. GENITOURINARY: None. MUSCULOSKELETAL: Pain in the joints, especially the lower back. DERMATOLOGICAL: None. HEMATOLOGICAL: None. LYMPHATICS: None. PSYCHIATRY: None. NEUROLOGICAL: None. PAST MEDICAL HISTORY: 1. Hypertension. 2. Osteoarthritis. 3. Hyperlipidemia. PAST SURGICAL HISTORY: None. SOCIAL HISTORY: No smoking. No alcohol. Lives by himself. Used to work for [employer]. FAMILY HISTORY: Prostate cancer. HOME MEDICATIONS: 1. Norvasc 5 mg b.i.d. 2. Pravachol 10 mg p.o. daily. 3. Irbesartan/hydrochlorothiazide 300/12.5 one tablet p.o. daily. ALLERGIES: NONE. PHYSICAL EXAMINATION: VITAL SIGNS ON PRESENTATION: Temperature 98.4, pulse 63, respiration 18, blood pressure 130/87, pulse ox 95% on room air. GENERAL APPEARANCE: Average build. BMI 32.8. Lying in bed, a bit tired-appearing. EYES: Pupils equal. Conjunctivae normal. HEENT: External appearance of nose and ears normal. Oral cavity normal. NECK: JVD not raised. Mass not palpable. RESPIRATORY: Effort normal. LUNGS: Fair air entry. CARDIOVASCULAR: First and second sounds normal. No edema. ABDOMEN: Soft, non-tender. Liver and spleen not palpable. LYMPHATIC: No lymph node palpable in neck or axillae. PSYCHIATRY: Alert and oriented x3. Mood and affect normal. NEUROLOGICAL: Pupils equal. Cranial nerves grossly intact. Power and sensation grossly intact. INVESTIGATIONS: White count 21.8, hemoglobin 17.2, potassium 3.9, BUN 24, creatinine 0.94. AST 54, ALT 140. Total bilirubin was 9. Amylase was 240, lipase 2168. Hepatitis screen negative. Chest x-ray film, personally reviewed by me, shows some cardiomegaly, unfolded aorta. EKG tracing, personally reviewed by me, shows normal sinus rhythm, some premature beats. Ultrasound of the gallbladder shows multiple gallstones, mild gallbladder wall thickening; no dilated ducts. CT scan of the abdomen and pelvis shows gallstones, large calculus in the region the right renal pelvis, smaller stone in the right kidney, some evidence of mild acute pancreatitis. ASSESSMENT: 1. Acute gallstone pancreatitis. Though patient has not really had any abdominal pain, he has had nausea and vomiting for the last few days. It is possible patient's stone may have passed, as the bilirubin has started to come down. 2. Multiple gallstones; acute on chronic cholecystitis possible. 3. Large calculus, right renal pelvis. 4. Obesity with body mass index of 32.8. 5. Essential hypertension. 6. Primary osteoarthritis. 7. Hyperlipidemia. PLAN: Patient was started on IV Zosyn, IV fluids. General Surgery and GI were consulted with a view to possible ERCP. Care was discussed in detail with the patient and the family at the bedside. Questions were answered. Patient will probably need an ERCP when the pancreatitis is more settled down. GI will decide the course of ERCP versus MRCP. Repeat labs in the morning. MMMOOSEL / GIOVANNIN: [id number] /
[2018-06-26] MEDS: HYDROCHLOROTHIAZIDE 12.5 MG CAP PO SCH (20:07)
[2018-06-26] MEDS: LOSARTAN 50 MG TAB PO SCH (20:07)
[2018-06-26] MEDS: HYDROmorphone 0.5 MG/0.5 ML SYRINGE IVP PRN (22:16)
[2018-06-26 23:23] LABS: Cancer Antigen 19-9 444.1 U/mL (0.0-34.9)
[2018-06-27] MEDS: PIPERACILLIN-TAZOBACTAM 3.375 GM in SODIUM CHLORIDE 0.9% 100 ML IVPB SCH ×4 (00:53→23:47)
[2018-06-27] MEDS: SODIUM CHLORIDE 0.9% 1,000 ML IV SCH ×3 (05:49→20:33)
[2018-06-27] MEDS: ENOXAPARIN 40 MG/0.4 ML SYRINGE SQ SCH (07:29)
[2018-06-27 07:36] LABS: ALT 69 U/L (21-72); AST 21 U/L (17-59); Albumin 2.8 g/dL (3.5-5.0); Alkaline Phosphatase 122 U/L (38-126); Anion Gap 9 mmol/L; Bilirubin, Conjugated 0.1 mg/dL (0.0-0.3); Bilirubin, Delta 1.2 mg/dL (0.0-0.2); Bilirubin,Unconjugated 2.8 mg/dL (0.0-1.1); Blood Urea Nitrogen 18 mg/dL (9-20); Calcium 8.5 mg/dL (8.4-10.2); Carbon Dioxide 25 mmol/L (22-30); Chloride 99 mmol/L (98-107); Glucose 102 mg/dL (74-99); Potassium 3.5 mmol/L (3.5-5.1); Sodium 133 mmol/L (137-145); Total Bilirubin 4.1 mg/dL (0.2-1.3); Total Protein 5.7 g/dL (6.3-8.2)
--- NOTE | 2018-06-27 10:14 | P.PN ---
Subjective Progress Note Date: 06/27/18 Principal diagnosis: Obstructive jaundice Patient feels better today. His liver enzymes are improving. MRI was not possible yesterday because of the patient's girth. Still denies pain. Objective - Vital Signs Vital signs: Vital Signs Temp 97.6 F 06/27/18 07:00 Pulse 71 06/27/18 07:00 Resp 15 06/27/18 07:00 BP 116/74 06/27/18 07:00 Pulse Ox 92 L 06/27/18 07:00 Intake & Output 06/26/18 06/27/18 06/27/18 18:59 06:59 18:59 Intake Total 2100 Balance 2100 Intake: Intake, IV Titration 2100 Amount Piperacillin-Tazobactam 3 100 .375 gm In Sodium Chloride 0.9% 100 ml @ 25 mls/hr IVPB Q8HR [facility] Rx# :[id number] Sodium Chloride 0.9% 1, 2000 000 ml @ 125 mls/hr IV . Q8H [facility] Rx#:[id number] Other: Voiding Method Toilet # Voids 2 2 - Exam Abdomen: Soft, nontender, nondistended - Labs CBC & Chem 7: 06/26/18 09:16 06/27/18 07:05 Labs: Abnormal Lab Results - Last 24 Hours (Table) 06/26/18 06/26/18 06/27/18 Range/Units 09:16 09:16 07:05 Sodium 133 L (137-145) mmol/L Glucose 102 H (74-99) mg/dL Total Bilirubin 5.7 H 4.1 H (0.2-1.3) mg/dL Conjugated Bilirubin 0.7 H (0.0-0.3) mg/dL Unconjugated Bilirubin 3.6 H 2.8 H (0.0-1.1) mg/dL Delta Bilirubin 1.4 H 1.2 H (0.0-0.2) mg/dL Total Protein 5.7 L (6.3-8.2) g/dL Albumin 2.8 L (3.5-5.0) g/dL CA 19-9 Antigen 444.1 H (0.0-34.9) U/mL Microbiology - Last 24 Hours (Table) 06/26/18 16:00 Urine Culture - Preliminary Urine,Voided Assessment and Plan (1) Jaundice Narrative/Plan: Await GI recommendations regarding biliary tree evaluation. Options reviewed with patient and would include ERCP, outpatient MRI at [facility], or observation with serial labs. Patient has no discomfort. Outpatient MRCP may be most reasonable. Current Visit: Yes Status: Acute Code(s): R17 - UNSPECIFIED JAUNDICE SNOMED Code(s): 06079611
[2018-06-27] MEDS: HYDROCHLOROTHIAZIDE 12.5 MG CAP PO SCH (10:40)
[2018-06-27] MEDS: LOSARTAN 50 MG TAB PO SCH (10:40)
[2018-06-27] MEDS: HYDROmorphone 0.5 MG/0.5 ML SYRINGE IVP PRN (22:52)
--- NOTE | 2018-06-27 23:22 | PN ---
PROGRESS NOTE DATE OF SERVICE: June 27, 2018. PRESENTING COMPLAINT: Nausea, vomiting. INTERVAL HISTORY: This patient presented with nausea, vomiting, found to have what is felt to be gallstone pancreatitis. The patient may have passed a stone. Doing better today, tolerating some diet. No nausea, vomiting. Feeling much better. Family at the bedside. Patient is also felt to have possible chronic cholecystitis. REVIEW OF SYSTEMS: Done for constitutional, cardiovascular GI, pulmonary, relevant findings as above. CURRENT MEDICATIONS: Reviewed that include IV Zosyn. PHYSICAL EXAMINATION: VITAL SIGNS: Temperature 98.3, pulse 79, respiration 15, blood pressure 140/87, pulse ox 94 percent on room air. GENERAL APPEARANCE: Sitting up, awake. EYES: Pupils equal. Conjunctivae normal. NECK: JVD not raised. Mass not palpable. RESPIRATORY effort normal. LUNGS: Clear. CARDIOVASCULAR: 1st and 2nd sounds normal. No edema. ABDOMEN: Soft, nontender. Liver and spleen not palpable. PSYCHIATRY: Alert and oriented x3. Mood and affect normal. INVESTIGATIONS: Potassium 3.5, BUN and creatinine is normal. Total bilirubin down to 4.1. AST, ALT down to 69 and 122. Lipase down to 662. ASSESSMENT: 1. Acute gallstone pancreatitis with clinical improvement. This stone may have been passed. Clinically looking better. 2. Multiple gallstones, acute versus chronic cholecystitis. 3. Large calculi right renal pelvis, asymptomatic. 4. Obesity; BMI 32.8. 5. Essential hypertension. 6. Primary osteoarthritis. 7. Hyperlipidemia. PLAN: Continue with IV antibiotics, fluids. We will also get a urology opinion for the right- sided mild hydronephrosis. May need intervention down the road. Care was discussed at length with the patient and family was at the bedside. Questions were answered. The patient is improving both clinically and biochemically. If the patient continues to improve, then patient may need a MRCP as outpatient followed by a cholecystectomy. MMODL / IJN: [id number] /
--- NOTE | 2018-06-27 23:25 | P.PN ---
Subjective Progress Note Date: 06/27/18 Principal diagnosis: Pancreatitis, elevated liver enzymes The patient is seen lying in bed reporting that he is having no abdominal pain. He has tolerated liquid diet. He is asking for his diet to be advanced. He feels he is less jaundiced today. Objective - Vital Signs Vital signs: Vital Signs Temp 97.4 F L 06/27/18 19:21 Pulse 70 06/27/18 19:21 Resp 18 06/27/18 19:21 BP 129/83 06/27/18 19:21 Pulse Ox 94 L 06/27/18 19:21 Intake & Output 06/27/18 06/27/18 06/28/18 06:59 18:59 06:59 Intake Total 2100 1240 1100 Balance 2100 1240 1100 Intake: Intake, IV Titration 2100 1000 1100 Amount Piperacillin-Tazobactam 3 100 100 .375 gm In Sodium Chloride 0.9% 100 ml @ 25 mls/hr IVPB Q8HR [facility] Rx# :[id number] Sodium Chloride 0.9% 1, 2000 1000 1000 000 ml @ 125 mls/hr IV . Q8H [facility] Rx#:[id number] Oral 240 Other: Voiding Method Toilet Toilet # Voids 2 2 - Exam On physical examination, patient appears comfortable in no apparent distress. HEAD: Normocephalic, atraumatic. EYES: No scleral icterus. No conjunctival injection. MOUTH: No lesions, tongue midline. NECK: Trachea midline, no gross abnormalities. CHEST: Clear to auscultation with no wheezing or rhonchi appreciated. HEART: S1-S2 appreciated no murmurs appreciated. ABDOMEN: Soft, obese, nontender. Bowel sounds are positive. No organomegaly. No guarding or rigidity. EXTREMITIES: No pedal edema. SKIN: No rashes, mild jaundice. NEUROLOGIC: Alert and oriented x3. No focal deficits. - Labs CBC & Chem 7: 06/26/18 09:16 06/27/18 07:05 Labs: Abnormal Lab Results - Last 24 Hours (Table) 06/26/18 06/27/18 06/27/18 Range/Units 09:16 07:05 07:05 Sodium 133 L (137-145) mmol/L Glucose 102 H (74-99) mg/dL Total Bilirubin 4.1 H (0.2-1.3) mg/dL Unconjugated Bilirubin 2.8 H (0.0-1.1) mg/dL Delta Bilirubin 1.2 H (0.0-0.2) mg/dL Total Protein 5.7 L (6.3-8.2) g/dL Albumin 2.8 L (3.5-5.0) g/dL Lipase 662 H (23-300) U/L CA 19-9 Antigen 444.1 H (0.0-34.9) U/mL Microbiology - Last 24 Hours (Table) 06/26/18 16:00 Urine Culture - Final Urine,Voided Assessment and Plan (1) Acute pancreatitis Narrative/Plan: 72-year-old gentleman admitted with acute onset of jaundice, with acute pancreatitis and elevated liver function tests. Ultrasound reported multiple gallstones with no dilation of biliary ducts. At this time liver enzymes are improving. He should denying any abdominal pain and clinically doing well. Unclear if elevation in liver enzymes are secondary to a stone which has passed through the bile duct, a retained stone or other etiology. Current Visit: Yes Status: Acute Code(s): K85.90 - ACUTE PANCREATITIS WITHOUT NECROSIS OR INFECTION, UNSP SNOMED Code(s): 033211729 (2) Jaundice Current Visit: Yes Status: Acute Code(s): R17 - UNSPECIFIED JAUNDICE SNOMED Code(s): 49079414 Plan: Supportive care Diet advanced today Continue to monitor liver enzymes Computed tomography scan and ultrasound of the abdomen reviewed Patient's case discussed at length with both the patient and his daughter, ERCP has been offered in the setting of elevated liver enzymes and findings of pancreatitis and cholelithiasis on imaging, however at this time given the down trending liver enzymes and the patient doing well clinically the family would like to continue to monitor the patient with consideration for outpatient MRI/MRCP if he continues to do well versus pursuing further intervention while hospitalized if he clinically worsens or labs worsen We'll continue to monitor, further recommendations to follow Thank you for allowing us to participate in the care with the patient we'll continue to follow
[2018-06-28] MEDS: PIPERACILLIN-TAZOBACTAM 3.375 GM in SODIUM CHLORIDE 0.9% 100 ML IVPB SCH (06:47)
[2018-06-28 07:27] VITALS: BP 134/81; PULSE 62; RESP 17; TEMP 97.8
[2018-06-28 08:17] LABS: ALT 67 U/L (21-72); AST 23 U/L (17-59); Alkaline Phosphatase 121 U/L (38-126); Anion Gap 8 mmol/L; Blood Urea Nitrogen 16 mg/dL (9-20); Calcium 8.8 mg/dL (8.4-10.2); Carbon Dioxide 24 mmol/L (22-30); Chloride 101 mmol/L (98-107); Glucose 104 mg/dL (74-99); Potassium 3.5 mmol/L (3.5-5.1); Sodium 133 mmol/L (137-145); Total Bilirubin 3.4 mg/dL (0.2-1.3); Total Protein 5.9 g/dL (6.3-8.2)
--- NOTE | 2018-06-28 09:56 | P.PN ---
Subjective Progress Note Date: 06/28/18 Principal diagnosis: Obstructive jaundice Patient feels well today. Bilirubin is down to 3.4. Denies pain. Objective - Vital Signs Vital signs: Vital Signs Temp 97.8 F 06/28/18 07:00 Pulse 62 06/28/18 07:00 Resp 17 06/28/18 07:00 BP 134/81 06/28/18 07:00 Pulse Ox 93 L 06/28/18 07:00 Intake & Output 06/27/18 06/28/18 06/28/18 18:59 06:59 18:59 Intake Total 1240 1100 Balance 1240 1100 Intake: Intake, IV Titration 1000 1100 Amount Piperacillin-Tazobactam 3 100 .375 gm In Sodium Chloride 0.9% 100 ml @ 25 mls/hr IVPB Q8HR [facility] Rx# :[id number] Sodium Chloride 0.9% 1, 1000 1000 000 ml @ 125 mls/hr IV . Q8H [facility] Rx#:[id number] Oral 240 Other: Voiding Method Toilet # Voids 1 - Exam Abdomen: Soft, nontender, nondistended - Labs CBC & Chem 7: 06/26/18 09:16 06/28/18 07:35 Labs: Abnormal Lab Results - Last 24 Hours (Table) 06/27/18 06/28/18 06/28/18 Range/Units 07:05 07:35 07:35 Sodium 133 L (137-145) mmol/L Glucose 104 H (74-99) mg/dL Total Bilirubin 3.4 H (0.2-1.3) mg/dL Total Protein 5.9 L (6.3-8.2) g/dL Albumin 3.0 L (3.5-5.0) g/dL Lipase 662 H 581 H (23-300) U/L Microbiology - Last 24 Hours (Table) 06/26/18 16:00 Urine Culture - Final Urine,Voided Assessment and Plan (1) Jaundice Narrative/Plan: Agree with plans for discharge and outpatient MRCP. Patient will follow-up in the office with me post MRCP to discuss possible need for cholecystectomy. Outpatient labs to be rechecked. Current Visit: Yes Status: Acute Code(s): R17 - UNSPECIFIED JAUNDICE SNOMED Code(s): 70662180
--- NOTE | 2018-06-28 21:07 | P.PN ---
Subjective Progress Note Date: 06/28/18 Principal diagnosis: Pancreatitis, elevated liver enzymes The patient is seen lying in bed. No abdominal pain reported. He has tolerated his diet. Patient's daughter and 2 sons are in the room and over 20 minutes have been spent in discussion with them, one son is particularly aggressive and hostile in the conversation. Objective - Vital Signs Vital signs: Vital Signs Temp 97.8 F 06/28/18 07:00 Pulse 62 06/28/18 07:00 Resp 17 06/28/18 07:00 BP 134/81 06/28/18 07:00 Pulse Ox 93 L 06/28/18 07:00 Intake & Output 06/28/18 06/28/18 06/29/18 06:59 18:59 06:59 Intake Total 1100 Balance 1100 Intake: Intake, IV Titration 1100 Amount Piperacillin-Tazobactam 3 100 .375 gm In Sodium Chloride 0.9% 100 ml @ 25 mls/hr IVPB Q8HR [facility] Rx# :[id number] Sodium Chloride 0.9% 1, 1000 000 ml @ 125 mls/hr IV . Q8H [facility] Rx#:[id number] Other: Voiding Method Toilet # Voids 1 - Exam On physical examination, patient appears comfortable in no apparent distress. HEAD: Normocephalic, atraumatic. EYES: No scleral icterus. No conjunctival injection. MOUTH: No lesions, tongue midline. NECK: Trachea midline, no gross abnormalities. CHEST: Clear to auscultation with no wheezing or rhonchi appreciated. HEART: S1-S2 appreciated no murmurs appreciated. ABDOMEN: Soft, obese, nontender. Bowel sounds are positive. No organomegaly. No guarding or rigidity. EXTREMITIES: No pedal edema. SKIN: No rashes, mild jaundice. NEUROLOGIC: Alert and oriented x3. No focal deficits. - Labs CBC & Chem 7: 06/26/18 09:16 06/28/18 07:35 Labs: Abnormal Lab Results - Last 24 Hours (Table) 06/28/18 06/28/18 Range/Units 07:35 07:35 Sodium 133 L (137-145) mmol/L Glucose 104 H (74-99) mg/dL Total Bilirubin 3.4 H (0.2-1.3) mg/dL Total Protein 5.9 L (6.3-8.2) g/dL Albumin 3.0 L (3.5-5.0) g/dL Lipase 581 H (23-300) U/L Microbiology - Last 24 Hours (Table) 06/26/18 16:00 Urine Culture - Final Urine,Voided Assessment and Plan (1) Acute pancreatitis Narrative/Plan: 72-year-old gentleman admitted with acute onset of jaundice, with acute pancreatitis and elevated liver function tests. Ultrasound reported multiple gallstones with no dilation of biliary ducts. At this time liver enzymes are improving, with total bilirubin down to 3.4 today. He should denying any abdominal pain and clinically doing well. Unclear if elevation in liver enzymes are secondary to a stone which has passed through the bile duct, a retained stone or other etiology. Status: Acute Code(s): K85.90 - ACUTE PANCREATITIS WITHOUT NECROSIS OR INFECTION, UNSP SNOMED Code(s): 833173626 (2) Jaundice Status: Acute Code(s): R17 - UNSPECIFIED JAUNDICE SNOMED Code(s): 74171922 Plan: Supportive care Okay for diet Continue to monitor liver enzymes Computed tomography scan and ultrasound of the abdomen reviewed Patient's case discussed at length with both the patient and his daughter and 2 sons, ERCP has been offered in the setting of elevated liver enzymes and findings of pancreatitis and cholelithiasis on imaging, however at this time given the down trending liver enzymes and the patient doing well clinically the family would like to continue to monitor the patient with plan for outpatient MRI/MRCP The patient and his family have been told that sensitivity for ruling out choledocholithiasis is not absolute for MRCP and that the chance of cholangitis and even is a possibility if discharged however they would like to pursue outpatient evaluation and are not interested in ERCP at this time Patient may also benefit from endoscopic ultrasound in the outpatient setting for further evaluation of pancreas after 6 weeks and resolution of pancreatitis We'll continue to monitor, further recommendations to follow Thank you for allowing us to participate in the care with the patient we'll continue to follow
--- NOTE | 2018-06-29 00:22 | DS ---
DISCHARGE SUMMARY DATE OF ADMISSION: 06/25/2018 DATE OF DISCHARGE: 06/28/2018 DATE OF SERVICE: 06/28/2018. FINAL DIAGNOSES: 1. Acute gallstone pancreatitis. 2. Multiple gallstones. 3. Acute on chronic cholecystitis. 4. Large calculi right renal pelvis asymptomatic. 5. Obesity; BMI 32.8. 6. Essential hypertension. 7. Primary osteoarthritis. 8. Hyperlipidemia. HOSPITAL COURSE: This patient presented with nausea and vomiting and did undergo a CT scan of the abdomen and ultrasound. The patient is felt to have passed a gallstone that caused acute gallstone pancreatitis with symptoms did improve. Patient did tolerate a diet. LFTs also coming down. I did discuss with Dr. Gonsales and also discussed with the patient's family. The patient will have an outpatient MRI/MRCP as determined by Dr. Gonsales and probably need cholecystectomy down the road. Otherwise, patient is feeling better. Discussion and discharge planning more than 35 minutes. PHYSICAL EXAMINATION: Temperature 97.8, pulse 72, respiration 17, blood pressure 134/81, pulse ox 93 percent on room air. ABDOMEN: Soft, nontender. INVESTIGATIONS: Potassium 3.5, bilirubin down to 3.4, lipase is down to 581. AST and ALT have normalized. CONSULTATION: Dr. Potts from General surgery, Dr. Gonsales from GI. DISCHARGE MEDICATIONS: 1. Olmesartan hydrochlorothiazide 300/12.5 one tab p.o. daily. 2. Augmentin 875 one tablet q.12; 10 tablets. 3. Norvasc 5 mg p.o. q.h.s. FOLLOW DR: Dr. Potts in 1 week. Follow up with Dr. Langley in 1 week, follow up with Dr. Gonsales in 1 week. MRI MRCP is being coordinated by Dr. Gonsales. Copy to Dr. Langley Gepp. MMODL / IJN: [id number] /
[2018-06-29 11:07] LABS: Iron Saturation 15.46 (15.00-50.00)
[2018-06-29 12:38] LABS: Ceruloplasmin 23.3 mg/dL (20.0-60.0)
== END 2018-06-28 12:40 | disposition home or self-care (01) | DRG 444 ==
LOC: EC 17:01 → 4SSUR 20:57
PROVIDERS: ADMIT Hospitalist; ATTEND Hospitalist
DX: K80.13 Calculus of gallbladder with acute and chronic cholecystitis with obstruction (principal); K85.10 Biliary acute pancreatitis without necrosis or infection; R17 Unspecified jaundice; E66.9 Obesity, unspecified; E78.5 Hyperlipidemia, unspecified; E86.0 Dehydration; I10 Essential (primary) hypertension; M19.91 Primary osteoarthritis, unspecified site; N20.0 Calculus of kidney; S50.812A Abrasion of left forearm, initial encounter; W19.XXXA Unspecified fall, initial encounter; Z68.32 Body mass index [BMI] 32.0-32.9, adult; Z80.42 Family history of malignant neoplasm of prostate; Z82.49 Family history of ischemic heart disease and other diseases of the circulatory system; Z83.6 Family history of other diseases of the respiratory system; Z60.2 Problems related to living alone; Z79.899 Other long term (current) drug therapy
CPT/HCPCS: 36415; 71046; 74018; 74177; 76705; 80053; 80074; 81001; 82103; 82140; 82150; 82248; 82378; 82390; 82550; 82553; 82728; 83516; 83540; 83550; 83690; 83735; 84484; 85025; 85610; 86038; 86301; 86376; 87086; 93005; 96361; 96365; 96375; 99285

== ENCOUNTER 2018-08-26 07:05 | Day surgery (SDC) | payer MEDICARE ==
[2018-08-20 14:58] VITALS: BMI 33.2
[~2018-08-26 07:05] MED LIST: DEXAMETHASONE SOD PHOSPHATE 10 MG/ML 1 ML VIAL IV ONE; HYDROmorphone 0.5 MG/0.5 ML SYRINGE IVP PRN; LACTATED RINGERS 1,000 ML IV SCH; LIDOCAINE 1% 20 ML VIAL (10MG/ML) FOR IV START INTRADERMA PRN; ONDANSETRON 4 MG/2 ML VIAL IVP ONE; ceFAZolin IN SWFI 2 GM/20 ML SYRINGE IVP ONE
[2018-08-26] MEDS ORDERED: HEPARIN SODIUM,PORCINE 5,000 UNIT/ML 1 ML VIAL SQ ONE (07:40)
--- NOTE | 2018-08-26 07:42 | P.GSHP ---
History of Present Illness H&P Date: 08/26/18 Chief Complaint: Chronic cholecystitis with recent choledocholithiasis 73-year-old male recently hospitalized with elevated liver enzymes. Initially there was concern about possible biliopancreatic malignancy. The patient's liver enzymes however did improve gradually. He had an outpatient MRI showing gallstones with no biliary or pancreatic lesions. Patient has been pain-free throughout. Doing well at this time. Tolerating diet. Previous ultrasound showed gallstones as well. Past Medical History Past Medical History: Hypertension Additional Past Medical History / Comment(s): "gallbladder caused jaundice- admitted to hospital June 2018",degenerative back disease History of Any Multi-Drug Resistant Organisms: None Reported Past Surgical History: No Surgical Hx Reported Past Anesthesia/Blood Transfusion Reactions: No Reported Reaction Additional Past Anesthesia/Blood Transfusion Reaction / Comment(s): never has had general anesthesia or blood transfusion Smoking Status: Never smoker - Past Family History Mother Family Medical History: No Reported History Father History Unknown: Yes Family Medical History: Pneumonia Additional Family Medical History / Comment(s): prostate cancer Medications and Allergies Home Medications Medication Instructions Recorded Confirmed Type Irbesartan/Hydrochlorothiazide 1 tab PO QAM 06/25/18 08/20/18 History [Irbesartan-Hctz 300-12.5 mg Tb] amLODIPine [Norvasc] 5 mg PO HS #1 06/28/18 08/20/18 Rx HYDROcodone/APAP 5-325MG [[place] 0.5 tab PO Q6HR PRN 08/20/18 08/26/18 History 5-325] Multivitamins, Thera [Multivitamin 1 tab PO DAILY 08/20/18 08/20/18 History (formulary)] Allergies Allergy/AdvReac Type Severity Reaction Status Date / Time No Known Allergies Allergy Verified 08/26/18 07:15 Surgical - Exam Vital Signs Temp Pulse Resp BP Pulse Ox 96.8 F L 82 17 117/64 95 08/26/18 07:16 08/26/18 07:16 08/26/18 07:16 08/26/18 07:16 08/26/18 07:16 Physical exam: General: Well-developed, well-nourished HEENT: Normocephalic, sclerae nonicteric Abdomen: Nontender, nondistended Extremities: No edema Neuro: Alert and oriented Assessment and Plan (1) Chronic cholecystitis Narrative/Plan: Will proceed with laparoscopic, possible open cholecystectomy at this time. Risks of bleeding, infection, bile leak, bile duct injury, retained common bile duct stone, trocar injury, conversion to an open procedure, hernia, anesthesia related complications were reviewed. The patient understands and wishes to proceed. Current Visit: Yes Status: Acute Code(s): K81.1 - CHRONIC CHOLECYSTITIS SNOMED Code(s): 22481920
[2018-08-26] MEDS ORDERED: GLYCOPYRROLATE 0.2 MG/ML 2 ML VIAL ONE (08:04)
[2018-08-26] MEDS ORDERED: SUCCINYLCHOLINE CHLORIDE 100 MG/5 ML SYR IV ONE (08:04)
[2018-08-26] MEDS ORDERED: MIDAZOLAM 2 MG/2 ML VIAL ONE (08:04)
[2018-08-26] MEDS ORDERED: ceFAZolin 1,000 MG VIAL ONE (08:04)
[2018-08-26] MEDS ORDERED: ROCURONIUM BROMIDE 10 MG/ML 10 ML VIAL IV ONE (08:04)
[2018-08-26] MEDS ORDERED: PROPOFOL 10 MG/ML 20 ML VIAL IV ONE (08:04)
[2018-08-26] MEDS ORDERED: HYDROmorphone (PF) 1 MG/ML ONE (08:04)
[2018-08-26] MEDS ORDERED: ePHEDrine SULFATE/0.9% NACL/PF 50 MG/5 ML SYRINGE IV ONE (08:04)
[2018-08-26] MEDS ORDERED: LIDOCAINE 1% INJ 10MG/ML (20 ML MDV) ONE (08:04)
[2018-08-26] MEDS ORDERED: NEOSTIGMINE 1 MG/ML 10 ML VIAL ONE (08:04)
[2018-08-26] MEDS ORDERED: fentaNYL (PF) 50 MCG/ML 2 ML AMP ONE (08:04)
[2018-08-26] MEDS ORDERED: BUPIVACAINE (PF) 0.25% 30 ML VIAL SQ ONE ×2 (08:39)
[2018-08-26] MEDS ORDERED: NALOXONE 0.4 MG/ML 1 ML VIAL IV PRN (09:46)
[2018-08-26] MEDS ORDERED: HYDROcodone/APAP 5-325MG 1 EACH TAB PO PRN (09:46)
--- NOTE | 2018-08-26 09:50 | P.OP ---
Date of Procedure: 08/26/18 Procedure(s) Performed: PREOPERATIVE DIAGNOSIS: Chronic cholecystitis with history of choledocholithiasis POSTOPERATIVE DIAGNOSIS: Same PROCEDURE: Laparoscopic cholecystectomy SURGEON: Delroy EBL: Minimal see anesthesia record ANESTHESIA: Gen. COMPLICATIONS: None OPERATIVE PROCEDURE: The patient was brought and placed on the operating room table in the supine position. The patient was placed under general anesthesia at that time. The abdomen was prepped and draped in the usual sterile fashion. A small vertical infraumbilical incision was made. The fascia was grasped with the Jennifer forceps. The fascia was retracted anteriorly. The Veress needle was advanced into the peritoneal cavity. There was no flow of saline through the Veress needle. I suspected we were still in the preperitoneal space. At that time I used a optical 5 mm trocar to enter the peritoneal cavity in the right upper quadrant. Full insufflation took place up to 15 mmHg. A 5 mm optical trocar was advanced and the peritoneal cavity at the umbilical site. An additional 5 mm trocar was placed laterally in the right upper quadrant under direct visualization. A 12 mm trocar was advanced into the epigastric incision site. The gallbladder had evidence of chronic inflammatory changes with a thickened wall and a contracted appearance. The gallbladder was retracted superiorly and laterally. The peritoneum overlying the infundibulum was bluntly dissected. The patient's cystic duct was visualized. The junction between the cystic duct common and hepatic duct was identified. The cystic duct was larger than usual as expected with the history of choledocholithiasis. The cystic duct was divided after a 2-0 Ethibond stitch was used to secure the cystic duct tied down using the high device. An additional 12 mm clip was placed on both sides as well. The adjacent cystic artery was identified and clipped as well. A small vessel was seen along the gallbladder fossa and clipped as well. The gallbladder was then removed from the liver bed using electrocautery. The gallbladder was then removed from the epigastric trocar site with an Endo Catch bag. The gallbladder fossa was irrigated with saline. There was no evidence of any bleeding or biliary drainage seen. The fascia at the 12 millimeter site was closed using a Austin-Radha 0 Vicryl stitch. The trochars were then removed. The skin at all 4 sites was closed using a 4-0 Monocryl stitch. Skin glue was utilized on the incision sites. At the end of this procedure the sponge and needle counts were correct. DISPOSITION: Stable to the recovery room
[2018-08-26 09:54] VITALS: TEMP 97.2
[2018-08-26 10:16] VITALS: RESP 18
[2018-08-26 12:32] VITALS: BP 94/65; PULSE 79
== END 2018-08-26 13:09 | disposition home or self-care (01) ==
LOC: OR 07:05
PROVIDERS: ATTEND Surgery
DX: K80.12 Calculus of gallbladder with acute and chronic cholecystitis without obstruction (principal); I10 Essential (primary) hypertension; M47.9 Spondylosis, unspecified; Z79.891 Long term (current) use of opiate analgesic; Z79.899 Other long term (current) drug therapy; Z80.42 Family history of malignant neoplasm of prostate; Z83.6 Family history of other diseases of the respiratory system
CPT/HCPCS: 47562; 88304; J2250; J1644; J2710; J2405; J0690 ×2; J2001; J3010; J1170; J0330; J2704

== ENCOUNTER → 2018-11-18 | Outpatient (CLI) | payer MEDICARE ==
[2018-11-18 10:07] LABS: Appearance,Urine Clear (Clear); Bilirubin,Urine Negative (Negative); Blood,Urine Small (Negative); Color,Urine Yellow; Glucose,Urine (UA) Negative (Negative); Ketones,Urine Negative (Negative); Leukocyte Esterase,Urine Moderate (Negative); Mucus,Urine Rare /hpf; Nitrite,Urine Negative (Negative); PH, Urine 6.5 (5.0-8.0); Protein,Urine Trace (Negative); RBC,Urine 60 /hpf (0-5); Squamous Epithelial Cell,Urine <1 /hpf (0-4); Urobilinogen,Urine <2.0 mg/dL (<2.0); WBC,Urine 19 /hpf (0-5)
[2018-11-18 10:09] LABS: Basophils # (A) 0.1 k/uL (0-0.2); Basophils % (A) 1 %; Eosinophils # (A) 0.2 k/uL (0-0.7); Eosinophils % (A) 2 %; HCT 52.6 % (39.0-53.0); Lymphocytes # (A) 1.1 k/uL (1.0-4.8); Lymphocytes % (A) 14 %; MCH 31.8 pg (25.0-35.0); MCHC 34.1 g/dL (31.0-37.0); MCV 93.2 fL (80.0-100.0); Mean Platelet Volume 6.3; Monocytes # (A) 0.6 k/uL (0-1.0); Monocytes % (A) 7 %; Neutrophils # (A) 6.1 k/uL (1.3-7.7); Neutrophils % (A) 74 %; Platelet Count 266 k/uL (150-450); RBC 5.65 m/uL (4.30-5.90); RDW 12.8 % (11.5-15.5); WBC 8.2 k/uL (3.8-10.6)
[2018-11-18 10:22] LABS: ALT 24 U/L (21-72); AST 33 U/L (17-59); African American GFR (CKD) >90 (>60 ml/min/1.73 sqM); Albumin 4.5 g/dL (3.5-5.0); Alkaline Phosphatase 98 U/L (38-126); Anion Gap 13 mmol/L; Blood Urea Nitrogen 11 mg/dL (9-20); Calcium 9.8 mg/dL (8.4-10.2); Carbon Dioxide 26 mmol/L (22-30); Chloride 96 mmol/L (98-107); Glucose 114 mg/dL (74-99); Potassium 4.9 mmol/L (3.5-5.1); Sodium 135 mmol/L (137-145); Total Bilirubin 2.1 mg/dL (0.2-1.3); Total Protein 8.2 g/dL (6.3-8.2)
== END | disposition home or self-care (01) ==
LOC: LABPAT 08:44
PROVIDERS: ATTEND Urology
DX: Z01.812 Encounter for preprocedural laboratory examination (principal); N20.0 Calculus of kidney; R35.0 Frequency of micturition; I10 Essential (primary) hypertension
CPT/HCPCS: 36415; 80053; 81001; 85025; 87086

== ENCOUNTER 2018-11-25 11:55 | Day surgery (SDC) | payer MEDICARE ==
[2018-11-18 10:55] VITALS: BMI 33.2
--- NOTE | 2018-11-24 20:17 | P.GSHP ---
History of Present Illness H&P Date: 11/24/18 73 yo male was sent to me because of an abnormal urinalysis. He was fond to have infected urine FUrther evaluation included a ct scan which identified a 2.5 cm rt renal pelvic stone He comes for a pcnl right to remove the stone, infection and clear the way for his future back surgery the risks , cmplications and alternatives have been discussed - Constitutional Constitutional: Reports chronic pain - Musculoskeletal Musculoskeletal: Reports low back pain Past Medical History Past Medical History: Hypertension Additional Past Medical History / Comment(s): "gallbladder caused jaundice- admitted to hospital June 2018", degenerative back disease, kidney stones, lower lumbar vertebra stenosis-planning surgery History of Any Multi-Drug Resistant Organisms: None Reported Past Surgical History: Cholecystectomy Past Anesthesia/Blood Transfusion Reactions: No Reported Reaction Additional Past Anesthesia/Blood Transfusion Reaction / Comment(s): never has had general anesthesia or blood transfusion Smoking Status: Never smoker - Past Family History Mother Family Medical History: No Reported History Father History Unknown: Yes Family Medical History: Pneumonia Additional Family Medical History / Comment(s): prostate cancer Medications and Allergies Home Medications Medication Instructions Recorded Confirmed Type Irbesartan/Hydrochlorothiazide 1 tab PO QAM 06/25/18 11/18/18 History [Irbesartan-Hctz 300-12.5 mg Tb] HYDROcodone/APAP 5-325MG [[place] 0.5 tab PO Q6HR PRN 08/20/18 11/18/18 History 5-325] amLODIPine [Norvasc] 5 mg PO BID 11/18/18 11/18/18 History Allergies Allergy/AdvReac Type Severity Reaction Status Date / Time No Known Allergies Allergy Verified 11/18/18 10:40 Surgical - Exam - General well nourished, moderate distress - Eyes PERRL - ENT no hearing loss - Neck trachea midline - Respiratory normal expansion, normal respiratory effort - Cardiovascular Rhythm: regular - Abdomen Abdomen: soft, non tender - Genitourinary normal penis with no external lesions, testicles present - Integumentary no rash, no growths - Neurologic normal coordination, normal sensation - Musculoskeletal normal gait, normal posture - Psychiatric oriented to time, oriented to person, oriented to place, speech is normal, memory intact Results - Imaging CT scan - abdomen: report reviewed, image reviewed CT scan - pelvis: report reviewed, image reviewed Assessment and Plan Assessment: Impression: Right renal stone, large with infection. Plan: PCNL right
[~2018-11-25 11:55] MED LIST changes: +AMPICILLIN 1,000 MG in SODIUM CHLORIDE 0.9% 50 ML IVPB ONE; +GENTAMICIN 140 MG in SODIUM CHLORIDE 0.9% 100 ML IVPB ONE; -LACTATED RINGERS 1,000 ML IV SCH; -ONDANSETRON 4 MG/2 ML VIAL IVP ONE; +ONDANSETRON 4 MG/2 ML VIAL IVP PRN; -ceFAZolin IN SWFI 2 GM/20 ML SYRINGE IVP ONE
--- NOTE | 2018-11-25 12:36 | XR ---
EXAMINATION TYPE: XR KUB DATE OF EXAM: 11/25/2018 COMPARISON: 06/25/2018 HISTORY: Preop TECHNIQUE: One view abdominal series FINDINGS: There is a large 2.6 cm right renal stone may be contained within the renal pelvis. Vascular calcific ations, degenerative change of the spine, and postsurgical clips are noted. Bowel gas pattern nonspec ific. Calcifications in pelvis likely vascular. Arthropathy of the hips. IMPRESSION: 1. Large right renal calculus.
[2018-11-25] MEDS: LACTATED RINGERS 1,000 ML IV SCH (13:00)
[2018-11-25] MEDS ORDERED: MIDAZOLAM 2 MG/2 ML VIAL ONE (13:41)
[2018-11-25] MEDS ORDERED: ROCURONIUM BROMIDE 10 MG/ML 10 ML VIAL IV ONE (13:41)
[2018-11-25] MEDS ORDERED: LIDOCAINE 1% INJ 10MG/ML (20 ML MDV) ONE (13:41)
[2018-11-25] MEDS ORDERED: PROPOFOL 10 MG/ML 20 ML VIAL IV ONE (13:41)
[2018-11-25] MEDS ORDERED: ePHEDrine SULFATE/0.9% NACL/PF 50 MG/5 ML SYRINGE IV ONE (13:41)
[2018-11-25] MEDS ORDERED: fentaNYL (PF) 50 MCG/ML 2 ML AMP ONE (13:41)
[2018-11-25] MEDS ORDERED: SUCCINYLCHOLINE CHLORIDE 100 MG/5 ML SYR IV ONE (13:41)
[2018-11-25] MEDS ORDERED: NEOSTIGMINE 1 MG/ML 10 ML VIAL ONE (13:41)
[2018-11-25] MEDS ORDERED: GLYCOPYRROLATE 0.2 MG/ML 2 ML VIAL ONE (13:41)
[2018-11-25] MEDS ORDERED: IOPAMIDOL-370 50ML BTL MISCELLANE ONE (14:00)
[2018-11-25] MEDS ORDERED: LACTATED RINGERS 1,000 ML IV ONE (15:06)
[2018-11-25] MEDS ORDERED: HYDROcodone/APAP 5-325MG 1 EACH TAB PO PRN (16:17)
[2018-11-25] MEDS ORDERED: ONDANSETRON 4 MG/2 ML VIAL IVP PRN (16:18)
[2018-11-25] MEDS ORDERED: MAG HYDROX/AL HYDROX/SIMETH 30 ML CUP PO PRN (16:18)
[2018-11-25] MEDS ORDERED: ACETAMINOPHEN TAB 325 MG TAB PO PRN (16:18)
[2018-11-25] MEDS ORDERED: HYDROmorphone PCA 10 MG/50 ML BAG IV PRN (16:20)
[2018-11-25] MEDS ORDERED: NALOXONE 0.4 MG/ML 1 ML VIAL IV PRN (16:20)
--- NOTE | 2018-11-25 16:24 | P.OP ---
Date of Procedure: 11/25/18 Preoperative Diagnosis: Right renal stone large Postoperative Diagnosis: Same Procedure(s) Performed: Cystoscopy, placement of 5-Nigerien occluding the lumen catheter, percutaneous nephrostomy (Dr. Terrance Anthony), percutaneous nephrostolithotomy with laser, 10- Nigerien J nephrostomy Anesthesia: MONTRELL Surgeon: Maximino Chanel Estimated Blood Loss (ml): 50 Pathology: other (Stone) Condition: stable Disposition: PACU Indications for Procedure: Patient is a 73-year-old gentleman who came to me because of an abnormal urinalysis. He is preoperative for a lumbar laminectomy due to severe back pain. His evaluation included a CAT scan which indeed identified a large renal stone on the right side causing obstruction. He comes for percutaneous nephrostolithotomy. Whether this is contributing to his pain or not is indeterminate. Description of Procedure: The patient is brought to the operating suite. He is given a general endotracheal anesthesia on the transport gurney. He's placed in a frog position with a sterile prep and drape. Cystoscopy Foroblique lens and 22-Nigerien sheath identifies a normal urethra. The prostate is not obstructing. The right ureteral orifice is identified and intubated with 5-Nigerien occluding balloon catheter which is passed up into the renal pelvis. Cystoscope was removed. A Craven catheters introduced and secured to the ureteral catheter. The patient's placed in a prone position with care to airways and extremities. Dr. Terrance Anthony of radiology performed percutaneous access to the right lower pole calyx. I then dilate the tract to 30-Nigerien. I introduced the working sheath. I remove clot. The stone was seen. Unfortunately ultrasound this machine broke therefore with laser lithotripsy I break the stone into tiny pieces and irrigate or grasp the stones and remove them from the kidney. I looked throughout the collecting system with the flexible scope and remove any more stones with stone basket. Then of the procedure a 10 J nephrostomy tube was placed and secured to the skin. The patient's awake and returned recovery in good condition. Blood loss is approximately 50 mL. He tolerated the procedure well be placed in the hospital postoperatively.
[2018-11-25] MEDS: DEXTROSE 5%-0.45% NACL 1,000 ML IV SCH (18:31)
[2018-11-25] MEDS: amLODIPine 5 MG TAB PO SCH (21:44)
[2018-11-26] MEDS: DEXTROSE 5%-0.45% NACL 1,000 ML IV SCH ×3 (04:17→22:58)
--- NOTE | 2018-11-26 06:40 | P.PN ---
Subjective Progress Note Date: 11/26/18 The patient is in his first postoperative day from a right percutaneous nephrostolithotomy. His pain is moderate. His urine is clearing. He does not feel ready for discharge home. She is starting to ambulate. His abdomen is soft. I will discontinue his Craven. We will decrease his IV fluids. He'll ambulate. If he feels well in the morning will be discharged home tomorrow. His vital signs are stable. Objective - Vital Signs Vital signs: Vital Signs Temp 97.8 F 11/26/18 01:35 Pulse 87 11/26/18 01:35 Resp 17 11/26/18 01:35 BP 154/83 11/26/18 01:35 Pulse Ox 95 11/26/18 01:35 Intake & Output 11/25/18 11/25/18 11/26/18 06:59 18:59 06:59 Intake Total 1503.5 120 Output Total 150 750 Balance 1353.5 -630 Intake: IV 1503.5 Oral 120 Output: Drainage 250 Right Back 250 Urine 150 500 Other: Voiding Method Indwelling Catheter
[2018-11-26] MEDS: LACTATED RINGERS 1,000 ML IV SCH (09:55)
[2018-11-26] MEDS: DOCUSATE 100 MG CAP PO SCH ×2 (09:56→22:54)
[2018-11-26] MEDS: LOSARTAN 50 MG TAB PO SCH (09:56)
[2018-11-26] MEDS: HYDROCHLOROTHIAZIDE 12.5 MG CAP PO SCH (09:56)
[2018-11-26] MEDS: amLODIPine 5 MG TAB PO SCH ×2 (09:56→22:54)
[2018-11-27] MEDS: LACTATED RINGERS 1,000 ML IV SCH (07:12)
[2018-11-27 07:52] VITALS: BP 126/82; PULSE 91; RESP 16; TEMP 97.5
[2018-11-27] MEDS: DEXTROSE 5%-0.45% NACL 1,000 ML IV SCH ×2 (08:22→08:28)
[2018-11-27] MEDS: LOSARTAN 50 MG TAB PO SCH (08:28)
[2018-11-27] MEDS: DOCUSATE 100 MG CAP PO SCH (08:28)
[2018-11-27] MEDS: amLODIPine 5 MG TAB PO SCH (08:28)
[2018-11-27] MEDS: HYDROCHLOROTHIAZIDE 12.5 MG CAP PO SCH (08:28)
--- NOTE | 2018-11-27 09:19 | P.DS ---
Providers Attending physician: Maximino Chanel Primary care physician: Alejandro Scales [place] Hospital Course: The patient was admitted to the hospital 11/25/2018 for percutaneous nephrostolithotomy to a large right renal pelvic stone. He has done well from this. He had a moderate amount of pain that is subsided. His catheters been removed and he is voiding well. The urine in the nephrostomy tube is clearing. His abdomen is soft. Operative flank pain seems to be gone up. The patient we discharged home with the nephrostomy tube and found the office on Friday for nephrostomy tube removal. He has pain medicine at home. His diet is regular his activities Limited. His condition is good. Patient Condition at Discharge: Good Plan - Discharge Summary Discharge Rx Participant: No New Discharge Prescriptions: No Action Irbesartan/Hydrochlorothiazide [Irbesartan-Hctz 300-12.5 mg Tb] 1 tab PO QAM HYDROcodone/APAP 5-325MG [[place] 5-325] 0.5 tab PO Q6HR PRN PRN Reason: Pain amLODIPine [Norvasc] 5 mg PO BID Discharge Medication List Irbesartan/Hydrochlorothiazide [Irbesartan-Hctz 300-12.5 mg Tb] 1 tab PO QAM 06/25/18 [History] HYDROcodone/APAP 5-325MG [[place] 5-325] 0.5 tab PO Q6HR PRN 08/20/18 [History] amLODIPine [Norvasc] 5 mg PO BID 11/18/18 [History] Follow up Appointment(s)/Referral(s): Maximino Chanel MD [STAFF PHYSICIAN] - 11/30/18 Activity/Diet/Wound Care/Special Instructions: home with nephrostomy tube Discharge Disposition: HOME SELF-CARE
--- NOTE | 2018-11-27 09:34 | FL ---
EXAMINATION TYPE: FL Perc Nephrostomy New Access DATE OF EXAM: 11/25/2018 COMPARISON: NONE HISTORY: Right kidney stone Procedure had been discussed with the patient by Dr. Chanel, risks, benefits, alternatives, were dis cussed and any questions were answered. Informed consent was obtained. The patient was in a semipro ne position prepped and draped on the OR table in the usual sterile fashion. Utilizing a 15 cm lengt h Chiba needle a single pass was made into a lower pole posterior calyx under fluoroscopic guidance. An 0.018 guidewire is passed through the needle and there was placement of a 6-Surinamese catheter sheat h system. There was conversion to a 0.035 system was performed with passage of a guidewire into the ureter utilizing a directional catheter. A second safety wire was placed. Remaining portion of pro cedure performed by . Approximately 2 minutes and 48 of fluoroscopy was provided. IMPRESSION: 1. Successful intraoperative right nephrostomy prior to nephrolithotomy.
== END 2018-11-27 12:27 | disposition home or self-care (01) ==
LOC: OR 11:55 → 4SSUR 16:08 → OR 11-27 12:27
PROVIDERS: ATTEND Urology
DX: N20.0 Calculus of kidney (principal); N13.8 Other obstructive and reflux uropathy; I44.0 Atrioventricular block, first degree; I11.9 Hypertensive heart disease without heart failure; I49.1 Atrial premature depolarization; I08.0 Rheumatic disorders of both mitral and aortic valves; R01.1 Cardiac murmur, unspecified; M17.10 Unilateral primary osteoarthritis, unspecified knee; M48.061 Spinal stenosis, lumbar region without neurogenic claudication; E78.5 Hyperlipidemia, unspecified; Z79.1 Long term (current) use of non-steroidal anti-inflammatories (NSAID); Z79.899 Other long term (current) drug therapy; Z79.82 Long term (current) use of aspirin; Z90.49 Acquired absence of other specified parts of digestive tract; Z83.6 Family history of other diseases of the respiratory system; Z80.42 Family history of malignant neoplasm of prostate
CPT/HCPCS: 50081; 94760; 94762; 97161; 97166; 86900; 86901; 86850; 82365; 50432; 74018; C2628; C1769 ×2; C1894; C1729; J2250; J1100; J2710; J2405; J2001; J3010; J1580; J0290; J0330; J2704; Q9967; J1170

== ENCOUNTER → 2019-05-20 | Outpatient (CLI) | payer MEDICARE | END | disposition home or self-care (01) | LOC: RADMRIMAIN 07:40 | PROVIDERS: ATTEND Physician Assistant | DX: Z53.9 Procedure and treatment not carried out, unspecified reason (principal) ==

== ENCOUNTER 2019-11-12 17:14 | Inpatient (IN) | payer MEDICARE ==
[2019-11-12] MEDS ORDERED: HEPARIN SODIUM,PORCINE 5,000 UNIT/ML 1 ML VIAL IV STA (17:21)
[2019-11-12] MEDS ORDERED: NITROGLYCERIN SL TABS 0.4 MG TAB SUBLINGUAL STA (17:21)
[2019-11-12] MEDS ORDERED: CLOPIDOGREL 75 MG TAB PO STA (17:21)
[2019-11-12] MEDS ORDERED: ATORVASTATIN 80 MG TAB PO STA (17:23)
[2019-11-12] MEDS ORDERED: SODIUM CHLORIDE 0.9% 500 ML 500 ML IV STA (17:36)
[2019-11-12 17:39] LABS: Basophils # (A) 0.1 k/uL (0-0.2); Basophils % (A) 0 %; Eosinophils # (A) 0.3 k/uL (0-0.7); Eosinophils % (A) 2 %; HCT 51.1 % (39.0-53.0); HGB 16.4 gm/dL (13.0-17.5); Lymphocytes # (A) 1.2 k/uL (1.0-4.8); Lymphocytes % (A) 6 %; MCH 29.2 pg (25.0-35.0); MCHC 32.1 g/dL (31.0-37.0); MCV 90.9 fL (80.0-100.0); Mean Platelet Volume 6.7; Monocytes # (A) 0.6 k/uL (0-1.0); Monocytes % (A) 3 %; Neutrophils # (A) 16.5 k/uL (1.3-7.7); Neutrophils % (A) 88 %; Platelet Count 318 k/uL (150-450); RBC 5.62 m/uL (4.30-5.90); WBC 18.8 k/uL (3.8-10.6)
--- NOTE | 2019-11-12 17:42 | ED ---
Chest Pain HPI - General Chief Complaint: Chest Pain Stated Complaint: poss STEMI Time Seen by Provider: 11/12/19 17:14 Source: patient, EMS, RN notes reviewed Mode of arrival: EMS Limitations: no limitations - History of Present Illness Initial Comments: This 74-year-old male history of hypertension and recent back surgery who had the onset around 12:30 this afternoon or retrosternal chest pain feeling like tightness along with shortness of breath. His been persistent and waxing and waning. He states initially was 3-4/10 severity he was given aspirin and transferred by EMS. When he got here was about 2/4 in severity he did receive nitroglycerin which was almost gone after this. He did develop some hypotension did require a fluid bolus. EKG done by EMS showed elevation of the ST segments in the anterior leads consistent with STEMI. He denies any fevers chills cough phlegm production recent illnesses. No prior history of overt heart disease. His blood pressure is been normal or low recently. MD Complaint: chest pain, other - Related Data Home Medications Medication Instructions Recorded Confirmed Irbesartan/Hydrochlorothiazide 1 tab PO QAM 06/25/18 11/25/18 [Irbesartan-Hctz 300-12.5 mg Tb] HYDROcodone/APAP 5-325MG [[place] 0.5 tab PO Q6HR PRN 08/20/18 11/25/18 5-325] amLODIPine [Norvasc] 5 mg PO BID 11/18/18 11/25/18 Allergies Allergy/AdvReac Type Severity Reaction Status Date / Time No Known Allergies Allergy Verified 11/12/19 17:15 Review of Systems ROS Statement: Those systems with pertinent positive or pertinent negative responses have been documented in the HPI. ROS Other: All systems not noted in ROS Statement are negative. EKG Findings - EKG Results: EKG: interpreted by ERMD, sinus rhythm (Sinus rhythm tachycardia rate 101 for screening AV block evidence of PACs. Interval to 40 QRS 144 QT since QTC 366/474 left exodeviation nonspecific interventricular block evidence of old inferior changes evidence of anterolateral infarct is ST elevation with hyperacute T waves seen this is changed) Past Medical History Past Medical History: Hypertension Additional Past Medical History / Comment(s): "gallbladder caused jaundice- admitted to hospital June 2018",degenerative back disease, kidney stone History of Any Multi-Drug Resistant Organisms: None Reported Past Surgical History: Back Surgery, Cholecystectomy Past Anesthesia/Blood Transfusion Reactions: No Reported Reaction Additional Past Anesthesia/Blood Transfusion Reaction / Comment(s): never has had general anesthesia or blood transfusion Past Psychological History: No Psychological Hx Reported Smoking Status: Never smoker Past Alcohol Use History: None Reported Past Drug Use History: None Reported - Past Family History Mother Family Medical History: No Reported History Father History Unknown: Yes Family Medical History: Pneumonia Additional Family Medical History / Comment(s): prostate cancer General Exam - General Exam Comments Initial Comments: This is a well-developed well-nourished awake alert oriented times 3 male Limitations: no limitations General appearance: alert, anxious, in distress Head exam: Present: atraumatic, normocephalic, normal inspection Eye exam: Present: normal appearance, PERRL, EOMI. Absent: scleral icterus, conjunctival injection, periorbital swelling ENT exam: Present: normal exam, mucous membranes moist Neck exam: Present: normal inspection, full ROM, other (No stridor JVD or bruits). Absent: tenderness, meningismus, lymphadenopathy Respiratory exam: Present: normal lung sounds bilaterally. Absent: respiratory distress, wheezes, rales, rhonchi, stridor Cardiovascular Exam: Present: regular rate, normal rhythm, normal heart sounds. Absent: systolic murmur, diastolic murmur, rubs, gallop, clicks GI/Abdominal exam: Present: soft, normal bowel sounds. Absent: distended, tenderness, guarding, rebound, rigid Extremities exam: Present: full ROM, normal capillary refill, pedal edema. Absent: tenderness, joint swelling, calf tenderness Back exam: Present: normal inspection Neurological exam: Present: alert, oriented X3, CN II-XII intact Psychiatric exam: Present: normal affect, normal mood Skin exam: Present: warm, dry, intact, normal color. Absent: rash Course Vital Signs 11/12/19 11/12/19 11/12/19 17:15 17:30 17:37 Temperature 98.0 F Pulse Rate 96 101 H 106 H Respiratory 21 18 18 Rate Blood Pressure 130/115 97/67 116/84 O2 Sat by Pulse 97 96 97 Oximetry 11/12/19 17:43 Temperature Pulse Rate 107 H Respiratory 18 Rate Blood Pressure 119/91 O2 Sat by Pulse 96 Oximetry - Reevaluation(s) Reevaluation #1: 11/12/19 17:41 A STEMI alert was called. I did discuss the case with Dr. Cano and also later with Dr. Wilkins. Patient be going to the [facility]. I did discuss the findings the patient and with 2 of his children that are present. Chest Pain MDM - MDM I did review the imaging and report no acute findings. EKG was reviewed as stated. Patient's pain is improved is difficult breathing has gone away after the initial treatment. Patient will be going to [facility]. I did discuss the findings with the patient is children that were present. The patient did have an episode of hypotension which responded to IV fluids. Critical Care Time Critical Care Time: Yes Total Critical Care Time: 31 Disposition Clinical Impression: ST elevation myocardial infarction (STEMI), Hypotensive episode, Chest pain Disposition: ADMITTED IP TO THIS HOSP Condition: Serious Referrals: Alejandro Langley MD [Primary Care Provider] - 1-2 days
--- NOTE | 2019-11-12 17:45 | XR ---
EXAMINATION TYPE: XR chest 1V portable DATE OF EXAM: 11/12/2019 COMPARISON: 06/25/2018 HISTORY: Chest pain TECHNIQUE: FINDINGS: There is no heart failure nor confluent pneumonic infiltrate. Costophrenic angles are clear . Thoracic aorta is atheromatous. There are chest leads. IMPRESSION: No active cardiopulmonary disease. No change.
[2019-11-12 17:50] LABS: ALT 14 U/L (4-49); AST 43 U/L (17-59); African American GFR (CKD) >90 (>60 ml/min/1.73 sqM); Albumin 4.5 g/dL (3.5-5.0); Alkaline Phosphatase 143 U/L (38-126); Anion Gap 11 mmol/L; Blood Urea Nitrogen 20 mg/dL (9-20); Carbon Dioxide 22 mmol/L (22-30); Chloride 100 mmol/L (98-107); Creatine Kinase 63 U/L (55-170); Glucose 192 mg/dL (74-99); Magnesium 1.8 mg/dL (1.6-2.3); Non-African American GFR(CKD) >90 (>60 ml/min/1.73 sqM); Potassium 5.3 mmol/L (3.5-5.1); Sodium 133 mmol/L (137-145); Total Bilirubin 2.2 mg/dL (0.2-1.3); Total Protein 8.1 g/dL (6.3-8.2)
[2019-11-12] MEDS ORDERED: IV FLUID CONTINUATION 800 ML IV ONE (17:53)
[2019-11-12] MEDS ORDERED: HEPARIN SODIUM,PORCINE 30 ML 30 ML ONE (18:00)
[2019-11-12] MEDS ORDERED: LIDOCAINE 1% INJ 10MG/ML (20 ML MDV) ONE (18:00)
[2019-11-12] MEDS ORDERED: LIDOCAINE 1% INJ 10MG/ML (20 ML MDV) SQ ONE (18:14)
[2019-11-12 18:15] LABS: D-Dimer 1.9 mg/L FEU (<0.60); Partial Thromboplastin Time 24.5 sec (22.0-30.0); Prothrombin Time 10.8 sec (9.0-12.0)
[2019-11-12] MEDS: MIDAZOLAM 2 MG/2 ML VIAL IV ONE ×2 (18:15→18:22)
[2019-11-12] MEDS ORDERED: BIVALIRUDIN BOLUS 250 MG/50 ML IV ONE (18:29)
[2019-11-12] MEDS ORDERED: BIVALIRUDIN 250 MG in SODIUM CHLORIDE 0.9% 33 ML IV ONE (18:29)
[2019-11-12] MEDS ORDERED: TICAGRELOR 90 MG TAB ONE (18:37)
[2019-11-12] MEDS ORDERED: TICAGRELOR 90 MG TAB PO ONE (18:40)
[2019-11-12] MEDS ORDERED: IOPAMIDOL-370 125ML BTL INJ ONE (18:44)
[2019-11-12] MEDS ORDERED: RX INFO: IV CONTRAST WAS GIVEN 1 EACH MISC MISCELLANE PRN (19:01)
[2019-11-12] MEDS ORDERED: NITROGLYCERIN SL TABS 0.4 MG TAB SUBLINGUAL PRN (19:01)
[2019-11-12] MEDS ORDERED: MAG HYDROX/AL HYDROX/SIMETH 30 ML CUP PO PRN (19:01)
[2019-11-12] MEDS ORDERED: ZOLPIDEM 5 MG TAB PO PRN (19:01)
[2019-11-12] MEDS ORDERED: ATROPINE SULFATE 0.1 MG/ML 10ML SYRINGE IV PRN (19:01)
[2019-11-12] MEDS ORDERED: SODIUM CHLORIDE 0.9% 1,000 ML IV SCH (19:15)
--- NOTE | 2019-11-12 19:16 | P.CRDCN ---
History of Present Illness Consult date: 11/12/19 Chief complaint: Chest pain History of present illness: This is a very pleasant 74-year-old gentleman with a past medical history significant for hypertension and dyslipidemia as well as obesity presented to the hospital complaining of chest discomfort. He was in his usual state of health until later this afternoon when he was at home and started experiencing retrosternal chest discomfort described as a tightness across his chest associated with shortness of breath. No sweating. No dizziness or lightheadedness. And no syncope. The discomfort started getting worse when ambulance was called and the patient was brought to the emergency department. The EKG showed what it seems to be new left bundle-branch block. Reviewing the patient's previous EKG showed narrow complex rhythm. Because of that he was advised an emergent heart catheterization. The emergent heart catheterization revealed extremely calcified right and left coronary systems was a critical disease involving the mid LAD. We did perform successful stenting of the LAD with a good angiographic results by the end was MARY-3 flow. The patient was chest pain-free by the end of the procedure. He will be admitted to the intensive care unit and he will be on dual antiplatelet therapy along with high intensity statin along with anti-ischemic medications. 2-D echocardiogram was Doppler to be performed as well. We'll continue following up with him. Past Medical History Past Medical History: Hypertension Additional Past Medical History / Comment(s): "gallbladder caused jaundice- admitted to hospital June 2018",degenerative back disease, kidney stone History of Any Multi-Drug Resistant Organisms: None Reported Past Surgical History: Back Surgery, Cholecystectomy Past Anesthesia/Blood Transfusion Reactions: No Reported Reaction Additional Past Anesthesia/Blood Transfusion Reaction / Comment(s): never has had general anesthesia or blood transfusion Past Psychological History: No Psychological Hx Reported Smoking Status: Never smoker Past Alcohol Use History: None Reported Past Drug Use History: None Reported - Past Family History Mother Family Medical History: No Reported History Father History Unknown: Yes Family Medical History: Pneumonia Additional Family Medical History / Comment(s): prostate cancer Medications and Allergies Home Medications Medication Instructions Recorded Confirmed Type Irbesartan/Hydrochlorothiazide 1 tab PO QAM 06/25/18 11/25/18 History [Irbesartan-Hctz 300-12.5 mg Tb] HYDROcodone/APAP 5-325MG [[place] 0.5 tab PO Q6HR PRN 08/20/18 11/25/18 History 5-325] amLODIPine [Norvasc] 5 mg PO BID 11/18/18 11/25/18 History Allergies Allergy/AdvReac Type Severity Reaction Status Date / Time No Known Allergies Allergy Verified 11/12/19 18:56 Physical Exam Vitals: Vital Signs Temp Pulse Resp BP Pulse Ox 11/12/19 17:43 107 H 18 119/91 96 11/12/19 17:37 106 H 18 116/84 97 11/12/19 17:30 101 H 18 97/67 96 11/12/19 17:15 98.0 F 96 21 130/115 97 Intake and Output 11/12/19 11/12/19 11/12/19 06:59 14:59 22:59 Intake Total 333 Balance 333 Intake: IV 333 Other: Weight 117.435 kg - Constitutional General appearance: no acute distress - Respiratory Respiratory: bilateral: CTA - Cardiovascular Rhythm: regular Heart sounds: normal: S1, S2 Abnormal Heart Sounds: systolic murmur Results 11/12/19 17:28 11/12/19 17:28 Cardiac Enzymes 11/12/19 11/12/19 Range/Units 17:28 17:28 AST 43 (17-59) U/L Troponin I <0.012 (0.000-0.034) ng/mL Coagulation 11/12/19 Range/Units 17:28 PT 10.8 (9.0-12.0) sec APTT 24.5 (22.0-30.0) sec CBC 11/12/19 Range/Units 17:28 WBC 18.8 H (3.8-10.6) k/uL RBC 5.62 (4.30-5.90) m/uL Hgb 16.4 (13.0-17.5) gm/dL Hct 51.1 (39.0-53.0) % Plt Count 318 (150-450) k/uL Comprehensive Metabolic Panel 11/12/19 Range/Units 17:28 Sodium 133 L (137-145) mmol/L Potassium 5.3 H (3.5-5.1) mmol/L Chloride 100 (98-107) mmol/L Carbon Dioxide 22 (22-30) mmol/L BUN 20 (9-20) mg/dL Creatinine 0.73 (0.66-1.25) mg/dL Glucose 192 H (74-99) mg/dL Calcium 10.0 (8.4-10.2) mg/dL AST 43 (17-59) U/L ALT 14 (4-49) U/L Alkaline Phosphatase 143 H (38-126) U/L Total Protein 8.1 (6.3-8.2) g/dL Albumin 4.5 (3.5-5.0) g/dL Current Medications Generic Name Dose Route Start Last Admin Trade Name Freq PRN Reason Stop Dose Admin Al Hydroxide/Mg Hydroxide 30 ml 11/12/19 19:01 Mag Hydrox/Al Hydrox/Simeth 30 Ml Cup PO Q4HR PRN Heartburn Aspirin 81 mg 11/13/19 09:00 Aspirin 81 Mg PO DAILY SOHAM Atorvastatin Calcium 80 mg 11/12/19 21:00 Atorvastatin 80 Mg Tab PO HS SOHAM Atropine Sulfate 0.5 mg 11/12/19 19:01 Atropine Sulfate 0.1 Mg/Ml 10ml Syringe IV ONCE PRN Symptomatic Bradycardia Sodium Chloride 1,000 mls @ 75 mls/hr 11/12/19 19:15 Saline 0.9% IV 11/13/19 01:16 .[id number] SOHAM Lisinopril 2.5 mg 11/13/19 09:00 Lisinopril 2.5 Mg Tab PO DAILY [facility] Metoprolol Tartrate 25 mg 11/12/19 21:00 Metoprolol Tartrate 25 Mg Tab PO BID [facility] Miscellaneous Information 1 each 11/12/19 19:01 Rx Info: Iv Contrast Was Given 1 Each Misc MISCELLANE 11/14/19 19:01 DAILY PRN Per Protocol Nitroglycerin 0.4 mg 11/12/19 19:01 Nitroglycerin Sl Tabs 0.4 Mg Tab SUBLINGUAL Q5M PRN Chest Pain Ticagrelor 90 mg 11/12/19 21:00 Ticagrelor 90 Mg Tab PO BID [facility] Zolpidem Tartrate 5 mg 11/12/19 19:01 Zolpidem 5 Mg Tab PO HS PRN Insomnia Intake and Output 11/12/19 11/12/19 11/12/19 06:59 14:59 22:59 Intake Total 333 Balance 333 Intake: IV 333 Other: Weight 117.435 kg Patient Weight 11/13/19 06:59 Weight 117.435 kg 11/12/19 17:28 11/12/19 17:28 Assessment and Plan Assessment: Assessment #[address] patient myocardial infarction #2 hypertension #3 dyslipidemia #4 obesity Plan #1 dual antiplatelet therapy #2 high intensity statin #3 anti-ischemic medication #4 ICU admission #5 an echocardiogram was Doppler #6 follow-up with the patient Thank you for allowing us participate in his care
[2019-11-12 19:31] LABS: Glucose,Whole Blood 149 mg/dL (75-99)
[2019-11-12] MEDS: TICAGRELOR 90 MG TAB PO SCH (20:29)
[2019-11-12] MEDS: ATORVASTATIN 80 MG TAB PO SCH (20:29)
[2019-11-12] MEDS: METOPROLOL TARTRATE 25 MG TAB PO SCH (20:29)
--- NOTE | 2019-11-12 22:07 | CC ---
CARDIAC CATHETERIZATION REPORT DATE OF SERVICE: 11/12/2019 PERFORMING PHYSICIAN: Puma Cano M.D. PROCEDURES PERFORMED: 1. Selective right and left coronary angiogram. 2. Left heart catheterization. 3. Successful stenting of the mid left anterior descending artery using a 2.5 x 23 mm Xience drug-eluting stent with excellent angiographic results and reduction of stenosis from 99% to 0%. INDICATION: This is a 74-year-old gentleman who sees Dr. Lance in the office as an outpatient with hypertension and dyslipidemia as well as obesity. He presented to the emergency department complaining of chest discomfort associated with shortness of breath. The EKG showed new left bundle branch block. Because of that, an emergent heart catheterization was advised. APPROACH: Right common femoral artery. COMPLICATIONS: None. LEVEL OF SEDATION: Moderate, with sedation length of 39 minutes. Door to balloon was 78 minutes. PROCEDURE DESCRIPTION: After obtaining informed consent, the patient was brought to the cardiac tree tapping laborer. The right common femoral artery was cannulated using micropuncture technique. The micropuncture wire passed easily. Initially I placed a 6-Tunisian sheath 11 cm at the right common femoral artery, but because of extreme tortuosity in the abdominal and thoracic aorta, I had to exchange my sheath for a 55 cm 6-Tunisian Raabe sheath to negotiate the tortuosity. Selective right and left coronary angiogram was performed using JR4 and JL4 catheters. Subsequently I did intervene on the LAD. Please see separate paragraph for that. Then I did left heart catheterization using a 6-Tunisian pigtail catheter. The procedure was completed without any complication. SELECTIVE CORONARY ANGIOGRAM: 1. The right coronary artery is a large-caliber vessel and it is a dominant vessel. The RCA is extremely calcified. The proximal RCA appeared to have mild disease only. The proximal to mid RCA has a lesion that appeared to be in the range of 50%. The RCA in the mid and distal portions appeared to have mild disease only and bifurcates into PDA and PLV branches. Both appeared to be angiographically normal. 2. The left main is a large-caliber vessel. It is angiographically normal. It bifurcates into LCX and LAD. 3. The LCX is a large-caliber vessel. It is a nondominant vessel. The proximal left circumflex appeared to be angiographically normal and it gives rise to a first OM branch which appeared to be angiographically normal. The mid circumflex has mild disease only and the circumflex distally appeared to have mild disease only. 4. The LAD. The proximal LAD appeared to be angiographically normal. The mid LAD has a tight lesion that appeared to be in the range of 99%. This is just distal to the bifurcation of a first diagonal branch, which is a large-caliber vessel with mild disease only. The LAD distally becomes a small-caliber vessel and does not reach the apex. HEMODYNAMICS: The LVEDP was 6 to 8 mmHg without significant gradient across the aortic valve. PERCUTANEOUS CORONARY INTERVENTION OF THE LEFT ANTERIOR DESCENDING CORONARY ARTERY: Anticoagulation was initiated using Angiomax. Subsequently I did engage the left main using JL4 guide. I did wire the LAD using a Whisper wire. After that I did PTCA ballooning of the LAD using a 2.0 x 12 mm balloon before I deployed a 2.5 x 23 mm Xience THIEN where the stent was positioned under fluoroscopic guidance and deployed under 12 atmospheres for 20 seconds. The following angiogram showed good angiographic results and the procedure was completed without any complication. CONCLUSION: 1. This is a 74-year-old gentleman with hypertension and dyslipidemia who presented to the hospital with chest discomfort and was found to have a new left bundle branch block. He was treated as a STEMI. 2. Extremely calcified right and left coronary systems. 3. Extremely tortuous abdominal and thoracic aorta. 4. Critical disease involving the mid right coronary artery, which was stented. 5. Intermediate disease involving the proximal to mid RCA. 6. Normal left ventricular end-diastolic pressure. POST-PROCEDURE MANAGEMENT: 1. Maximize medical treatment. 2. Aggressive cholesterol control. 3. Dual anti-platelet therapy. 4. Echocardiogram with Doppler. 5. Standard groin care. 6. Follow up with the patient. MMODL / IJN: [id number] /
--- NOTE | 2019-11-12 22:12 | LTR ---
November 12, 2019 To: Dr. Alejandro Langley Re: Jose Francisco Ahn (41) Dear Dr. Langley: Mr. Jose Francisco Ahn presented to the hospital with chest discomfort and was diagnosed with acute anterior ST-elevation myocardial infarction. He underwent an emergent heart catheterization and stenting of the LAD with good angiographic results. Thank you for allowing us to participate in his care and please do not hesitate to call with any question or concern. Sincerely, Puma Cano M.D. TITI / JOSEFINA: [id number] /
--- NOTE | 2019-11-12 23:01 | P.HPIM ---
History of Present Illness H&P Date: 11/12/19 The patient is a 74-year-old male with a PMH of hypertension and hyperlipidemia who had presented to the ED with complaints of chest pain. Patient reports that he was in his usual state of health until around 10:30 AM this morning when he suddenly developed substernal pressure-like nonradiating discomfort with associated shortness of breath, 4 out of 10 in intensity, with no alleviating or exacerbating features. His discomfort gradually worsened throughout the day, and he eventually called his son who activated EMS. The patient denied dizziness, palpitations, nausea, vomiting, or diaphoresis. Also denied experiencing abdominal pain, fever, chills, cough, or diarrhea. The patient's pain had improved to a 1 out of 10 after admission to the ED. Patient's EKG however had revealed a sinus tachycardia at 101 bpm with a new left bundle branch block. Chest x-ray was unremarkable. The patient was taken for an emergent cardiac catheterization with a right femoral approach which revealed greater than 90% disease of the mid LAD which was stented. The patient was admitted to the medical ICU where he was seen. At time of interview, he reported feeling back to his baseline and denied chest discomfort, or shortness of breath. He denied any additional complaints as well. Laboratory evaluation from the emergency room and revealed a WBC count of 18.8, sodium 133, potassium 5.3, glucose 192, troponin less than 0.012, proBNP 153. Review of Systems Pertinent positives and negatives as discussed in HPI, a complete review of systems was performed and all other systems are negative. Past Medical History Past Medical History: Hypertension Additional Past Medical History / Comment(s): "gallbladder caused jaundice- admitted to hospital June 2018",degenerative back disease, kidney stone History of Any Multi-Drug Resistant Organisms: None Reported Past Surgical History: Back Surgery, Cholecystectomy Past Anesthesia/Blood Transfusion Reactions: No Reported Reaction Additional Past Anesthesia/Blood Transfusion Reaction / Comment(s): never has had general anesthesia or blood transfusion Past Psychological History: No Psychological Hx Reported Smoking Status: Never smoker Past Alcohol Use History: None Reported Past Drug Use History: None Reported - Past Family History Mother Family Medical History: No Reported History Father History Unknown: Yes Family Medical History: Pneumonia Additional Family Medical History / Comment(s): prostate cancer Medications and Allergies Home Medications Medication Instructions Recorded Confirmed Type Irbesartan/Hydrochlorothiazide 1 tab PO DAILY 04/25/19 09/11/20 History [Irbesartan-Hctz 300-12.5 mg Tb] amLODIPine [Norvasc] 5 mg PO BID 11/18/18 11/12/19 History Lactulose 10 gm PO BID PRN 11/12/19 11/12/19 History Polyethylene Glycol 3350 [Miralax] 17 gm PO DAILY PRN 11/12/19 11/12/19 History Pravastatin Sodium [Pravachol] 20 mg PO DAILY 11/12/19 11/12/19 History tiZANidine [Zanaflex] 4 mg PO Q8HR PRN 11/12/19 11/12/19 History Allergies Allergy/AdvReac Type Severity Reaction Status Date / Time No Known Allergies Allergy Verified 11/12/19 18:56 Physical Exam Vitals: Vital Signs Temp Pulse Resp BP Pulse Ox 11/12/19 21:00 93 12 93 L 11/12/19 20:24 98.5 F 93 22 125/87 93 L 11/12/19 17:43 107 H 18 119/91 96 11/12/19 17:37 106 H 18 116/84 97 11/12/19 17:30 101 H 18 97/67 96 11/12/19 17:15 98.0 F 96 21 130/115 97 Intake and Output 11/12/19 11/12/19 11/12/19 06:59 14:59 22:59 Intake Total 558 Output Total 150 Balance 408 Intake: IV 558 Sodium Chloride 0.9% 1, 225 000 ml @ 75 mls/hr IV . [id number] [facility] Rx#:[id number] Output: Urine 150 Other: Weight 117.435 kg General: non toxic, no distress, appears at stated age, obese Derm: no unusual rashes/lesions no unusual ecchymoses, warm, dry Head: atraumatic, normocephalic, symmetric Eyes: EOMI, no lid lag, anicteric sclera, pupils equal round reactive to light ENT: Nose and ears atraumatic, no thrush, no pharyngeal erythema Neck: No thyromegaly, no cervical lymphadenopathy, trachea midline, supple Mouth: no lip lesion, mucus membranes moist Cardiovascular: S1S2 reg, no murmur, positive posterior tibial pulse bilateral, 1+ bilateral lower extremity pitting edema, capillary refill less than 2 seconds Lungs: CTA bilateral, no rhonchi, no rales , no accessory muscle use Abdominal: soft, nontender to palpation, no guarding, no appreciable organom egaly, normal bowel sounds Ext: no gross muscle atrophy, muscle strength 5 out of 5 in all 4 extremities grossly, no contractures, right inguinal dressing in place, clean and dry Neuro: CN II-XI grossly intact, light touch intact all 4 extremities, finger to nose within normal limits, Psych: Alert, oriented, appropriate affect Results CBC & Chem 7: 11/12/19 17:28 11/12/19 17:28 Labs: Abnormal Lab Results - Last 24 Hours (Table) 11/12/19 11/12/19 11/12/19 Range/Units 17:28 17:28 17:28 WBC 18.8 H (3.8-10.6) k/uL Neutrophils # 16.5 H (1.3-7.7) k/uL D-Dimer 1.90 H (<0.60) mg/L FEU Sodium 133 L (137-145) mmol/L Potassium 5.3 H (3.5-5.1) mmol/L Glucose 192 H (74-99) mg/dL POC Glucose (mg/dL) (75-99) mg/dL Total Bilirubin 2.2 H (0.2-1.3) mg/dL Alkaline Phosphatase 143 H (38-126) U/L 11/12/19 Range/Units 19:29 WBC (3.8-10.6) k/uL Neutrophils # (1.3-7.7) k/uL D-Dimer (<0.60) mg/L FEU Sodium (137-145) mmol/L Potassium (3.5-5.1) mmol/L Glucose (74-99) mg/dL POC Glucose (mg/dL) 149 H (75-99) mg/dL Total Bilirubin (0.2-1.3) mg/dL Alkaline Phosphatase (38-126) U/L Thrombosis Risk Factor Assmnt - Choose All That Apply Any of the Below Risk Factors Present?: Yes Each Factor Represents 1 point: Acute MD, Medical pt on bed rest Other Risk Factors: No Thrombosis Risk Factor Assessment Total Risk Factor Score: 2 Thrombosis Risk Factor Assessment Level: Low Risk Assessment and Plan Plan: ST elevation MD status PCI 1 to mid LAD -Cardiology recommendations appreciated -Continue with aspirin and Alimta -continue with beta della, GONZALO inhibitor, statin -IV fluids -Cardiac monitoring -Echocardiogram ordered Leukocytosis -Likely due to acute stressor -No signs of active infection at this time -Monitor CBC for now Hyperkalemia -Monitor BMP Hyperglycemia -Check A1c -Lispro insulin sliding scale with blood glucose monitoring Hyponatremia, likely due to acute pain -Monitor BMP Chronic conditions: Hypertension, hyperlipidemia -Hold off on home antihypertensives in lieu of GONZALO inhibitor and beta della -Planned to switch Pravachol to higher intensity statin i.e. Lipitor DVT prophylaxis -IPCDs The patient is admitted with an anticipated greater than 2 midnight stay for evaluation of STEMI CODE STATUS: Full Code Discussed with: Patient Anticipated discharge date: 2-[address]: Home A total of 40 minutes was spent on the care of this complex patient more than 50% of the time was spent in counseling and care coordination.
[2019-11-13 04:53] LABS: Basophils # (A) 0.1 k/uL (0-0.2); Basophils % (A) 0 %; Eosinophils # (A) 0.1 k/uL (0-0.7); Eosinophils % (A) 1 %; HCT 44.1 % (39.0-53.0); HGB 14.4 gm/dL (13.0-17.5); Lymphocytes # (A) 1.1 k/uL (1.0-4.8); Lymphocytes % (A) 7 %; MCH 29.7 pg (25.0-35.0); MCHC 32.6 g/dL (31.0-37.0); MCV 91.1 fL (80.0-100.0); Mean Platelet Volume 6.6; Monocytes # (A) 1.1 k/uL (0-1.0); Monocytes % (A) 7 %; Neutrophils % (A) 83 %; Platelet Count 259 k/uL (150-450); RBC 4.84 m/uL (4.30-5.90); WBC 14.4 k/uL (3.8-10.6)
[2019-11-13 05:06] LABS: African American GFR (CKD) >90 (>60 ml/min/1.73 sqM); Anion Gap 3 mmol/L; Blood Urea Nitrogen 17 mg/dL (9-20); Carbon Dioxide 22 mmol/L (22-30); Chloride 102 mmol/L (98-107); Glucose 119 mg/dL (74-99); Magnesium 1.7 mg/dL (1.6-2.3); Non-African American GFR(CKD) >90 (>60 ml/min/1.73 sqM); Potassium 4.7 mmol/L (3.5-5.1); Sodium 127 mmol/L (137-145)
[2019-11-13] MEDS ORDERED: Magnesium Replacement Protocol 1 EACH MISC MISCELLANE PRN (05:13)
[2019-11-13] MEDS: MAGNESIUM SULFATE-D5W PMX 1 GM in DEXTROSE/WATER 1 100ML.BAG IVPB SCH ×2 (05:37→06:55)
[2019-11-13] MEDS: INSULIN ASPART (NovoLOG) 100 UNIT/ML VIAL SQ SCH ×3 (06:33→17:02)
[2019-11-13 06:34] LABS: Glucose,Whole Blood 116 mg/dL (75-99)
[2019-11-13] MEDS: ASPIRIN 81 MG PO SCH (08:23)
[2019-11-13] MEDS: TICAGRELOR 90 MG TAB PO SCH ×2 (08:23→19:40)
[2019-11-13] MEDS: METOPROLOL TARTRATE 25 MG TAB PO SCH ×2 (08:23→19:40)
--- NOTE | 2019-11-13 10:00 | ECHOF ---
Referral Reason:STEMI MEASUREMENTS -------- HEIGHT: 180.3 cm WEIGHT: 114.8 kg BP: 104/67 IVSd: 1.3 cm (0.6 - 1.1) LVIDd: 3.9 cm (3.9 - 5.3) LVPWd: 1.3 cm (0.6 - 1.1) EDV(Teich): 66 ml IVSs: 1.8 cm LVIDs: 2.4 cm LVPWs: 1.6 cm %IVS Thck: 38 % ESV(Teich): 21 ml EF(Teich): 69 % %FS: 38 % SV(Teich): 45 ml LA Diam: 4.0 cm (2.7 - 3.8) RVIDd: 3.8 cm (< 3.3) LALs A4C: 6.0 cm LAAs A4C: 17.1 cm LAESV A-L A4C: 41 ml LAESV MOD A4C: 40 ml LALs A2C: 5.5 cm LAAs A2C: 15.6 cm LAESV A-L A2C: 38 ml LAESV MOD A2C: 36 ml LAESV(A-L): 41 ml LAESV Index (A-L): 17.65 ml/m Ao Diam: 4.1 cm (2.0 - 3.7) AV Cusp: 2.0 cm (1.5 - 2.6) EPSS: 0.5 cm MV E Tomer: 1.01 m/s MV DecT: 205 ms MV Dec Peach: 4.9 m/s MV A Tomer: 0.90 m/s MV E/A Ratio: 1.13 MV PHT: 59 ms LVOT Vmax: 0.97 m/s LVOT maxP.80 mmHg AV Vmax: 1.81 m/s AV maxP.19 mmHg AV Vmax: 1.91 m/s AV Vmean: 1.44 m/s AV maxP.64 mmHg AV meanP.10 mmHg AV Env.Ti: 272 ms AV VTI: 39.1 cm TR Vmax: 2.52 m/s TR maxP.47 mmHg RAP: 5.00 mmHg RVSP: 30.47 mmHg MV EF SLOPE: 57.53 mm/s (70 - 150) MV EXCURSION: 17.70 mm (> 18.000) FINDINGS -------- Sinus rhythm. This was a technically difficult study with suboptimal views. The left ventricular size is normal. There is mild concentric left ventricular hypertrophy. Overa ll left ventricular systolic function is low-normal with, an EF between 50 - 55 %. There is evidenc e of paradoxical septal motion. Apical anterior LV wall motion is hypokinetic. Apical HYPOKINESIS/A NEURYSM The right ventricle is mild to moderately enlarged. Normal LA size by volume 22+/-6 ml/m2. The right atrium is normal in size. There is mild aortic valve sclerosis. There is mild aortic stenosis present. Peak/mean gradient a cross the Aortic Valve is 14.64mmHg / 9.10mmHg. Mild mitral annular calcification present. Mild tricuspid regurgitation present. Right ventricular systolic pressure is normal at < 35 mmHg. The pulmonic valve was not well visualized. The aortic root is dilated measuring 4.1cm. IVC Not well visulized. There is no pericardial effusion. CONCLUSIONS -------- 1. This was a technically difficult study with suboptimal views. 2. The left ventricular size is normal. 3. There is mild concentric left ventricular hypertrophy. 4. There is evidence of paradoxical septal motion. 5. The right ventricle is mild to moderately enlarged. 6. There is mild aortic valve sclerosis. 7. There is mild aortic stenosis present. 8. Peak/mean gradient across the Aortic Valve is 14.64mmHg / 9.10mmHg. 9. Mild mitral annular calcification present. 10. Mild tricuspid regurgitation present. 11. The aortic root is dilated measuring 4.1cm. 12. There is no pericardial effusion. MERCURY PURIFIER: Vivienne Coughlin [facility]
[2019-11-13 11:17] VITALS: BMI 35.3
[2019-11-13 11:30] LABS: Glucose,Whole Blood 128 mg/dL (75-99)
--- NOTE | 2019-11-13 13:13 | P.PN ---
Progress Note - Text Patient is resting comfortably in a chair. He has no chest discomfort no shortness of breath doing very well. This includes at that he had an acute myocardial infarction despite the fact that he was statins, antihypertensive therapy and a good diet He presented with what seems to be an anterior wall MS. He underwent stenting yesterday. His vessels are quite calcified Today's 2-D echo shows LV function of 4053% with apical hypokinesis/akinesis Blood pressure 130/64 mmHg in looks comfortable normal respirations Pulse rate in the 60s afebrile Breath sounds are clear no rhonchi no crackles Normal heart sounds Abdomen is soft Extremities show mild bilateral edema Impression Acute anterior wall infarct status post stenting to the LAD Heavily calcified vessels Very tortuous aorta Suggest continue dual antiplatelet therapy with aspirin and Brilinta, atorvastatin 80 mg by mouth daily Continue lisinopril, continue metoprolol 25 mg twice daily May be transferred to 3 S.
--- NOTE | 2019-11-13 14:16 | P.PN ---
Subjective Progress Note Date: 11/13/19 Patient is feeling well this morning. He denies any chest pain. 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 Objective - Vital Signs Vital signs: Vital Signs Temp 97.8 F 11/13/19 12:00 Pulse 61 11/13/19 13:00 Resp 27 H 11/13/19 13:00 BP 115/63 11/13/19 13:00 Pulse Ox 94 L 11/13/19 13:00 Intake & Output 11/12/19 11/13/19 11/13/19 18:59 06:59 18:59 Intake Total 333 735 960 Output Total 625 250 Balance 333 110 710 Weight 117.435 kg 115 kg 115 kg Intake: IV 333 735 260 KVO 10 10 Magnesium Sulfate-D5w Pmx 200 1 gm In Dextrose/Water 1 100ml.bag @ 100 mls/hr IVPB Q1H [facility] Rx#: [id number] Sodium Chloride 0.9% 1, 250 000 ml @ 50 mls/hr IV . Q20H [facility] Rx#:[id number] Sodium Chloride 0.9% 1, 525 000 ml @ 75 mls/hr IV . [id number] [facility] Rx#:[id number] Oral 700 Output: Urine 625 250 Other: # Voids 1 - Exam General: The patient is awake and alert, in no distress Eye: there is normal conjunctiva bilaterally. Neck: The neck is supple, there is no JVD. Cardiovascular: Normal S1-S2, no S3-S4, no murmurs. Respiratory: Lungs clear to auscultation bilaterally Gastrointestinal: Abdomen is soft, nontender Musculoskeletal: There is no pedal edema. Neurological:. Speech is normal. Skin: Skin is warm and dry - Labs CBC & Chem 7: 11/13/19 04:10 11/13/19 04:10 Labs: Abnormal Lab Results - Last 24 Hours (Table) 11/12/19 11/12/19 11/12/19 Range/Units 17:28 17:28 17:28 WBC 18.8 H (3.8-10.6) k/uL Neutrophils # 16.5 H (1.3-7.7) k/uL Monocytes # (0-1.0) k/uL D-Dimer 1.90 H (<0.60) mg/L FEU Sodium 133 L (137-145) mmol/L Potassium 5.3 H (3.5-5.1) mmol/L Glucose 192 H (74-99) mg/dL POC Glucose (mg/dL) (75-99) mg/dL Total Bilirubin 2.2 H (0.2-1.3) mg/dL Alkaline Phosphatase 143 H (38-126) U/L 11/12/19 11/13/19 11/13/19 Range/Units 19:29 04:10 04:10 WBC 14.4 H (3.8-10.6) k/uL Neutrophils # 12.0 H (1.3-7.7) k/uL Monocytes # 1.1 H (0-1.0) k/uL D-Dimer (<0.60) mg/L FEU Sodium 127 L (137-145) mmol/L Potassium (3.5-5.1) mmol/L Glucose 119 H (74-99) mg/dL POC Glucose (mg/dL) 149 H (75-99) mg/dL Total Bilirubin (0.2-1.3) mg/dL Alkaline Phosphatase (38-126) U/L 11/13/19 11/13/19 Range/Units 06:32 11:29 WBC (3.8-10.6) k/uL Neutrophils # (1.3-7.7) k/uL Monocytes # (0-1.0) k/uL D-Dimer (<0.60) mg/L FEU Sodium (137-145) mmol/L Potassium (3.5-5.1) mmol/L Glucose (74-99) mg/dL POC Glucose (mg/dL) 116 H 128 H (75-99) mg/dL Total Bilirubin (0.2-1.3) mg/dL Alkaline Phosphatase (38-126) U/L Assessment and Plan Assessment: This is a 74-year-old male with past medical history noted below who presented to the emergency room with chest pain. Patient was evaluated in the ER and admitted to the hospital for further management of his medical problems noted below. 1. Acute ST elevation MS: Status post successful stent placement to LAD. Continue optimal medical management per cardiology. Dual antiplatelet therapy. Echocardiogram was a poor study but showed EF of 50-55% and no significant valvular abnormalities. 2. Essential hypertension, blood pressure well-controlled currently on lisinopril 2.5 mg daily and metoprolol 25 mg twice a day 3. Hyperlipidemia: Currently on Lipitor 80 mg daily. Fasting lipid profile pending 4. Hypovolemic hyponatremia: Probably secondary to hydrochlorothiazide use. This was discontinued. Continue gentle IV fluid hydration with normal saline at 50 mg per hour. 5. Hyperkalemia, resolved 6. Hyperglycemia, A1c pending no history of diabetes 7. DVT prophylaxis with SCD
[2019-11-13] MEDS: SODIUM CHLORIDE 0.9% 1,000 ML IV SCH (14:59)
[2019-11-13 16:43] LABS: Glucose,Whole Blood 129 mg/dL (75-99)
[2019-11-13 19:40] LABS: Glucose,Whole Blood 150 mg/dL (75-99)
[2019-11-13] MEDS: ATORVASTATIN 80 MG TAB PO SCH (19:40)
[2019-11-13 20:55] LABS: Hemoglobin A1C 5.7 % (4.0-6.0)
[2019-11-14 04:48] LABS: Basophils # (A) 0.1 k/uL (0-0.2); Basophils % (A) 1 %; Eosinophils # (A) 0.3 k/uL (0-0.7); Eosinophils % (A) 3 %; HCT 44.6 % (39.0-53.0); HGB 14.6 gm/dL (13.0-17.5); Lymphocytes # (A) 1.5 k/uL (1.0-4.8); Lymphocytes % (A) 11 %; MCH 29.7 pg (25.0-35.0); MCHC 32.7 g/dL (31.0-37.0); MCV 90.7 fL (80.0-100.0); Mean Platelet Volume 6.5; Monocytes % (A) 8 %; Neutrophils # (A) 10.4 k/uL (1.3-7.7); Neutrophils % (A) 77 %; Platelet Count 270 k/uL (150-450); RBC 4.92 m/uL (4.30-5.90); RDW 13.1 % (11.5-15.5); WBC 13.4 k/uL (3.8-10.6)
[2019-11-14 05:01] LABS: African American GFR (CKD) >90 (>60 ml/min/1.73 sqM); Anion Gap 6 mmol/L; Blood Urea Nitrogen 18 mg/dL (9-20); Calcium 8.8 mg/dL (8.4-10.2); Carbon Dioxide 23 mmol/L (22-30); Chloride 102 mmol/L (98-107); Cholesterol 125 mg/dL (<200); Glucose 100 mg/dL (74-99); HDL Cholesterol 37 mg/dL (40-60); LDL Cholesterol,Calculated 77 mg/dL (0-99); Magnesium 1.8 mg/dL (1.6-2.3); Non-African American GFR(CKD) 89 (>60 ml/min/1.73 sqM); Potassium 4.5 mmol/L (3.5-5.1); Sodium 131 mmol/L (137-145); Triglycerides 56 mg/dL (<150)
[2019-11-14] MEDS: SODIUM CHLORIDE 0.9% 1,000 ML IV SCH (05:24)
[2019-11-14] MEDS: MAGNESIUM SULFATE-D5W PMX 1 GM in DEXTROSE/WATER 1 100ML.BAG IVPB SCH ×2 (05:24→06:28)
[2019-11-14] MEDS: INSULIN ASPART (NovoLOG) 100 UNIT/ML VIAL SQ SCH ×3 (06:08→16:48)
[2019-11-14] MEDS: TICAGRELOR 90 MG TAB PO SCH ×2 (08:40→20:53)
[2019-11-14] MEDS: ASPIRIN 81 MG PO SCH (08:40)
[2019-11-14] MEDS: METOPROLOL TARTRATE 25 MG TAB PO SCH ×2 (08:40→20:53)
--- NOTE | 2019-11-14 09:53 | P.PN ---
Subjective Progress Note Date: 11/14/19 Patient is feeling well this morning. He denies any chest pain. 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 Objective - Vital Signs Vital signs: Vital Signs Temp 98.4 F 11/14/19 08:00 Pulse 70 11/14/19 08:00 Resp 20 11/14/19 08:00 BP 116/59 11/14/19 08:00 Pulse Ox 93 L 11/14/19 08:00 Intake & Output 11/13/19 11/14/19 11/14/19 18:59 06:59 18:59 Intake Total 1510 600 500 Output Total 800 1145 250 Balance 710 -545 250 Weight 115 kg 119 kg Intake: IV 510 600 100 KVO 10 Sodium Chloride 0.9% 1, 500 600 100 000 ml @ 50 mls/hr IV . Q20H [facility] Rx#:[id number] Oral 1000 400 Output: Urine 800 1145 250 Other: # Voids 1 - Exam General: The patient is awake and alert, in no distress Eye: there is normal conjunctiva bilaterally. Neck: The neck is supple, there is no JVD. Cardiovascular: Normal S1-S2, no S3-S4, no murmurs. Respiratory: Lungs clear to auscultation bilaterally Gastrointestinal: Abdomen is soft, nontender Musculoskeletal: There is no pedal edema. Neurological:. Speech is normal. Skin: Skin is warm and dry - Labs CBC & Chem 7: 11/14/19 04:13 11/14/19 04:13 Labs: Abnormal Lab Results - Last 24 Hours (Table) 11/13/19 11/13/19 11/13/19 Range/Units 11:29 16:41 19:39 WBC (3.8-10.6) k/uL Neutrophils # (1.3-7.7) k/uL Sodium (137-145) mmol/L Glucose (74-99) mg/dL POC Glucose (mg/dL) 128 H 129 H 150 H (75-99) mg/dL HDL Cholesterol (40-60) mg/dL 11/14/19 11/14/19 Range/Units 04:13 04:13 WBC 13.4 H (3.8-10.6) k/uL Neutrophils # 10.4 H (1.3-7.7) k/uL Sodium 131 L (137-145) mmol/L Glucose 100 H (74-99) mg/dL POC Glucose (mg/dL) (75-99) mg/dL HDL Cholesterol 37 L (40-60) mg/dL Assessment and Plan Assessment: This is a 74-year-old male with past medical history noted below who presented to the emergency room with chest pain. Patient was evaluated in the ER and admitted to the hospital for further management of his medical problems noted below. 1. Acute ST elevation [place]: Status post successful stent placement to LAD. Continue optimal medical management per cardiology. Dual antiplatelet therapy. Echocardiogram was a poor study but showed EF of 50-55% and no significant valvular abnormalities. 2. Essential hypertension, blood pressure well-controlled currently on lisinopril 2.5 mg daily and metoprolol 25 mg twice a day 3. Hyperlipidemia: Currently on Lipitor 80 mg daily. Fasting lipid profile showed LDL of 77 as patient was on Pravachol 20 mg daily at home 4. Hypovolemic hyponatremia: Resolved with IV fluid hydration. Probably secondary to hydrochlorothiazide use. This was discontinued. 5. Hyperkalemia, resolved 6. Hyperglycemia, A1c 5.7 no history of diabetes 7. DVT prophylaxis with SCD Plan to discharge home tomorrow per cardiology recommendations
[2019-11-14 11:44] LABS: Glucose,Whole Blood 148 mg/dL (75-99)
--- NOTE | 2019-11-14 13:16 | P.PN ---
Subjective This is Regina Gonzalez PA-C dictating a progress note on this patient The patient was interviewed and examined by me as well as by Dr. Lance Case discussed with Dr. Lance and he agrees with the plan of care HPI/interval history Patient is a 74-year-old male with a history of hypertension and dyslipidemia who presented with chest discomfort. He was taken to the labeling associate emergently and was found to have heavily calcified and coronary artery system and critical disease involving the mid LAD. He underwent successful stenting of the LAD. Patient seen and examined in the ICU, sitting in the chair. He is doing well. He states his breathing has improved. No chest discomfort. EXAMINATION Patient is afebrile, pulse in the 70s, respirations 20, blood pressure 116/59, oxygen saturation 93% on room air Patient seen and examined sitting in the chair, in no acute distress Heart is regular, no audible murmurs Lungs are clear to auscultation bilaterally No lower extremity edema No JVD REVIEW OF LABS, ECG WBC 13.4, hemoglobin 14.6, platelets 270, potassium 4.5, BUN 18, creatinine 0.75 LDL 77 Echocardiogram shows EF 50-55, apical hypokinesis Telemetry shows sinus rhythm No arrhythmias noted on telemetry IMPRESSION / ASSESSMENT: #[address] elevation AR status post stenting to the LAD #2 hypertension #3 dyslipidemia #4 obesity PLAN: Continue the current regimen including dual antiplatelet therapy, high intensity statins, metoprolol and lisinopril Objective - Vital Signs Vital signs: Vital Signs Temp 98.4 F 11/14/19 08:00 Pulse 70 11/14/19 08:00 Resp 20 11/14/19 08:00 BP 116/59 11/14/19 08:00 Pulse Ox 93 L 11/14/19 08:00 Intake & Output 11/13/19 11/14/19 11/14/19 18:59 06:59 18:59 Intake Total 1510 600 500 Output Total 800 1145 400 Balance 710 -545 100 Weight 115 kg 119 kg Intake: IV 510 600 100 KVO 10 Sodium Chloride 0.9% 1, 500 600 100 000 ml @ 50 mls/hr IV . Q20H [facility] Rx#:[id number] Oral 1000 400 Output: Urine 800 1145 400 Other: # Voids 1 - Labs CBC & Chem 7: 11/14/19 04:13 11/14/19 04:13 Labs: Abnormal Lab Results - Last 24 Hours (Table) 11/13/19 11/13/19 11/14/19 Range/Units 16:41 19:39 04:13 WBC (3.8-10.6) k/uL Neutrophils # (1.3-7.7) k/uL Sodium 131 L (137-145) mmol/L Glucose 100 H (74-99) mg/dL POC Glucose (mg/dL) 129 H 150 H (75-99) mg/dL HDL Cholesterol 37 L (40-60) mg/dL 11/14/19 11/14/19 Range/Units 04:13 11:42 WBC 13.4 H (3.8-10.6) k/uL Neutrophils # 10.4 H (1.3-7.7) k/uL Sodium (137-145) mmol/L Glucose (74-99) mg/dL POC Glucose (mg/dL) 148 H (75-99) mg/dL HDL Cholesterol (40-60) mg/dL
[2019-11-14] MEDS: ACETAMINOPHEN TAB 325 MG TAB PO PRN ×2 (13:37→20:58)
[2019-11-14 16:24] LABS: Glucose,Whole Blood 131 mg/dL (75-99)
[2019-11-14 20:33] LABS: Glucose,Whole Blood 120 mg/dL (75-99)
[2019-11-14] MEDS: ATORVASTATIN 80 MG TAB PO SCH (20:53)
[2019-11-15 05:04] LABS: Basophils % (A) 0 %; Eosinophils # (A) 0.2 k/uL (0-0.7); Eosinophils % (A) 2 %; HCT 43.9 % (39.0-53.0); HGB 14.2 gm/dL (13.0-17.5); Lymphocytes # (A) 1.2 k/uL (1.0-4.8); Lymphocytes % (A) 9 %; MCH 29.2 pg (25.0-35.0); MCHC 32.4 g/dL (31.0-37.0); MCV 90.3 fL (80.0-100.0); Mean Platelet Volume 6.6; Monocytes # (A) 1.2 k/uL (0-1.0); Monocytes % (A) 9 %; Neutrophils # (A) 11.1 k/uL (1.3-7.7); Neutrophils % (A) 79 %; Platelet Count 255 k/uL (150-450); RBC 4.86 m/uL (4.30-5.90); RDW 13.2 % (11.5-15.5)
[2019-11-15 05:09] LABS: African American GFR (CKD) >90 (>60 ml/min/1.73 sqM); Anion Gap 6 mmol/L; Blood Urea Nitrogen 20 mg/dL (9-20); Calcium 8.8 mg/dL (8.4-10.2); Carbon Dioxide 20 mmol/L (22-30); Chloride 103 mmol/L (98-107); Glucose 110 mg/dL (74-99); Magnesium 1.9 mg/dL (1.6-2.3); Non-African American GFR(CKD) 86 (>60 ml/min/1.73 sqM); Potassium 4.6 mmol/L (3.5-5.1); Sodium 129 mmol/L (137-145)
[2019-11-15 07:29] LABS: Glucose,Whole Blood 92 mg/dL (75-99)
[2019-11-15] MEDS: INSULIN ASPART (NovoLOG) 100 UNIT/ML VIAL SQ SCH ×3 (07:56→17:07)
[2019-11-15] MEDS: MAGNESIUM SULFATE-D5W PMX 1 GM in DEXTROSE/WATER 1 100ML.BAG IVPB SCH ×2 (09:15→10:04)
[2019-11-15] MEDS: TICAGRELOR 90 MG TAB PO SCH ×2 (09:15→20:02)
[2019-11-15] MEDS: METOPROLOL TARTRATE 25 MG TAB PO SCH ×2 (09:15→20:02)
[2019-11-15] MEDS: ASPIRIN 81 MG PO SCH (09:15)
[2019-11-15] MEDS: ACETAMINOPHEN TAB 325 MG TAB PO PRN ×2 (09:18→20:00)
--- NOTE | 2019-11-15 10:01 | P.PN ---
Subjective Progress Note Date: 11/15/19 This is a 74-year-old gentleman was admitted with complaints of chest pain and shortness of breath and newly detected left bundle-branch block pattern. Patient had a cardiac catheterization and was found about 99% off mid LAD with moderate disease in other vessels. Patient had stent placement of the mid LAD. Patient had only 1 troponin value. Echocardiogram showed apical hypokinesia. Whether this represents a Small [place] or Non-ST Elevation [place] and Unstable Angina Is Not Clear. Patient Is Clearly Feeling Better. Denies Any Chest Pain or Shortness of Breath. He Wants to Go Home. Patient is advised to get up and walk around. Patient could be discharged home either later today or tomorrow. Objective - Vital Signs Vital signs: Vital Signs Temp 97.7 F 11/15/19 09:00 Pulse 73 11/15/19 09:00 Resp 25 H 11/15/19 09:00 BP 108/58 11/15/19 09:00 Pulse Ox 96 11/15/19 09:00 Intake & Output 11/14/19 11/15/19 11/15/19 18:59 06:59 18:59 Intake Total 1250 100 Output Total 850 150 120 Balance 400 -150 -20 Intake: IV 100 Sodium Chloride 0.9% 1, 100 000 ml @ 50 mls/hr IV . Q20H [facility] Rx#:[id number] Intake, IV Titration 100 Amount Magnesium Sulfate-D5w Pmx 100 1 gm In Dextrose/Water 1 100ml.bag @ 100 mls/hr IVPB Q1H [facility] Rx#: [id number] Oral 1150 Output: Urine 850 150 120 Other: Voiding Method Urinal - Exam GENERAL EXAM: Patient is alert and oriented and doesn't appear to be in any acute distress HEENT: Normocephalic. Normal reaction of pupils, equal size, normal range of extraocular motion. No erythema or exudates in the throat. NECK: No masses, no nuchal rigidity. CHEST: No chest wall deformity. LUNGS: Equal air entry with no crackles or wheeze. HEART: S1 and S2 normal with no audible mumurs or gallops. Regular rhythm, femorals equal on both sides.. ABDOMEN: No hepatosplenomegaly, normal bowel sounds, no guarding or rigidity. SKIN: No rashes CENTRAL NERVOUS SYSTEM: No focal deficits. EXTREMITIES: No cyanosis, clubbing or edema. - Labs CBC & Chem 7: 11/15/19 03:58 11/15/19 03:58 Labs: Abnormal Lab Results - Last 24 Hours (Table) 11/14/19 11/14/19 11/14/19 Range/Units 11:42 16:23 20:30 WBC (3.8-10.6) k/uL Neutrophils # (1.3-7.7) k/uL Monocytes # (0-1.0) k/uL Sodium (137-145) mmol/L Carbon Dioxide (22-30) mmol/L Glucose (74-99) mg/dL POC Glucose (mg/dL) 148 H 131 H 120 H (75-99) mg/dL 11/15/19 11/15/19 Range/Units 03:58 03:58 WBC 14.0 H (3.8-10.6) k/uL Neutrophils # 11.1 H (1.3-7.7) k/uL Monocytes # 1.2 H (0-1.0) k/uL Sodium 129 L (137-145) mmol/L Carbon Dioxide 20 L (22-30) mmol/L Glucose 110 H (74-99) mg/dL POC Glucose (mg/dL) (75-99) mg/dL Assessment and Plan (1) Acute coronary syndrome Current Visit: Yes Status: Acute Code(s): I24.9 - ACUTE ISCHEMIC HEART DISEASE, UNSPECIFIED SNOMED Code(s): 518349339 (2) Status post coronary artery stent placement Current Visit: Yes Status: Acute Code(s): Z95.5 - PRESENCE OF CORONARY ANGIOPLASTY IMPLANT AND GRAFT SNOMED Code(s): 877410136 (3) Left bundle branch block Current Visit: Yes Status: Acute Code(s): I44.7 - LEFT BUNDLE-BRANCH BLOCK, UNSPECIFIED SNOMED Code(s): 27023992 (4) First degree heart block Current Visit: Yes Status: Acute Code(s): I44.0 - ATRIOVENTRICULAR BLOCK, FIRST DEGREE SNOMED Code(s): 881048053 Plan: Patient is critically stable. We'll hold his beta della because of long first-degree heart block and bradycardia And also hypotension. Continue rest of the medication. Increase activity if possible discharge within next 24-48 hours
[2019-11-15 11:46] LABS: Glucose,Whole Blood 122 mg/dL (75-99)
--- NOTE | 2019-11-15 16:23 | P.PN ---
Progress Note - Text Progress Note Date: 11/15/19 Presenting complaint: Chest pain Interval history: Patient admitted with chest pain or shortness of breath. Bundle-branch block. Cardiac cath showed 99% mid LAD lesion and disease in other vessels. Admitted with unstable angina. LAD a successful drug-eluting stenting. Today-sitting up in a chair ICU. No chest pain no shortness breath. Patient noted to have long first degree heart block and bradycardia and some hypertension. Cardiology backed off on the beta della. Review of systems: Was done for constitutional, cardiovascular, GI, pulmonary. relevant finding as above Active Medications Acetaminophen (Acetaminophen Tab 325 Mg Tab) 650 mg PO Q6HR PRN PRN Reason: Fever and/ or Pain Last Admin: 11/15/19 09:18 Dose: 650 mg Documented by: Al Hydroxide/Mg Hydroxide (Mag Hydrox/Al Hydrox/Simeth 30 Ml Cup) 30 ml PO Q4HR PRN PRN Reason: Heartburn Aspirin (Aspirin 81 Mg) 81 mg PO DAILY [facility] Last Admin: 11/15/19 09:15 Dose: 81 mg Documented by: Atorvastatin Calcium (Atorvastatin 80 Mg Tab) 80 mg PO HS [facility] Last Admin: 11/14/19 20:53 Dose: 80 mg Documented by: Atropine Sulfate (Atropine Sulfate 0.1 Mg/Ml 10ml Syringe) 0.5 mg IV ONCE PRN PRN Reason: Symptomatic Bradycardia Insulin Aspart (Insulin Aspart (Novolog) 100 Unit/Ml Vial) 0 unit SQ AC-TID [facility]; Protocol Last Admin: 11/15/19 11:45 Dose: Not Given Documented by: Lisinopril (Lisinopril 2.5 Mg Tab) 2.5 mg PO DAILY [facility] Last Admin: 11/15/19 09:15 Dose: 2.5 mg Documented by: Metoprolol Tartrate (Metoprolol Tartrate 25 Mg Tab) 25 mg PO BID [facility] Last Admin: 11/15/19 09:15 Dose: 25 mg Documented by: Miscellaneous Information (Magnesium Replacement [facility] 1 each MISCELLANE DAILY PRN; Protocol PRN Reason: Per Protocol Nitroglycerin (Nitroglycerin Sl Tabs 0.4 Mg Tab) 0.4 mg SUBLINGUAL Q5M PRN PRN Reason: Chest Pain Ticagrelor (Ticagrelor 90 Mg Tab) 90 mg PO BID [facility] Last Admin: 11/15/19 09:15 Dose: 90 mg Documented by: Zolpidem Tartrate (Zolpidem 5 Mg Tab) 5 mg PO HS PRN PRN Reason: Insomnia On examination: VITAL SIGNS: 97.6, 59, 21, 108/41, 96% room air GENERAL APPEARANCE: BMI 36.9, sitting up in a chair, comfortable. HEENT: Normal external appearance of nose and ear. Oral cavity normal EYES: Pupils equal. Conjunctiva normal. NECK: JVD not raised. Mass not palpable. RESPIRATORY: Respiratory effort normal. Lungs clear to auscultation. CARDIOVASCULAR: First and second sounds normal. No edema. ABDOMEN: Soft. Liver and spleen not palpable. No tenderness. No mass palpable. PSYCHIATRY: Alert and oriented x3. Mood and affect normal. INVESTIGATIONS, reviewed in the clinical context: White count 14 hemoglobin 14.2 platelets 255 potassium 4.6 creatinine 0.81 sodium 129 2-D echocardiogram-EF 50-55%, wall motion abnormality Assessment: -Unstable angina -Coronary artery disease with a stent to LAD -Essential hypertension -Kidney stones asymptomatic -Primary osteoarthritis -Chronic constipation Plan: Patient's currently on aspirin and Lipitor Zestril Lopressor Brilinta. Medication adjusted by currently. Care was discussed with the patient. Follow with cardiology
[2019-11-15 16:38] LABS: Glucose,Whole Blood 139 mg/dL (75-99)
[2019-11-15] MEDS: ATORVASTATIN 80 MG TAB PO SCH (20:02)
[2019-11-15 20:23] LABS: Glucose,Whole Blood 126 mg/dL (75-99)
[2019-11-16 06:40] LABS: Basophils # (A) 0.1 k/uL (0-0.2); Basophils % (A) 0 %; Eosinophils # (A) 0.3 k/uL (0-0.7); Eosinophils % (A) 3 %; HCT 44.3 % (39.0-53.0); HGB 14.5 gm/dL (13.0-17.5); Lymphocytes # (A) 1.5 k/uL (1.0-4.8); Lymphocytes % (A) 12 %; MCH 29.7 pg (25.0-35.0); MCHC 32.7 g/dL (31.0-37.0); MCV 90.9 fL (80.0-100.0); Mean Platelet Volume 6.6; Monocytes # (A) 1.1 k/uL (0-1.0); Monocytes % (A) 8 %; Neutrophils # (A) 10.1 k/uL (1.3-7.7); Neutrophils % (A) 76 %; Platelet Count 312 k/uL (150-450); RBC 4.87 m/uL (4.30-5.90); RDW 13.1 % (11.5-15.5); WBC 13.3 k/uL (3.8-10.6)
[2019-11-16 06:50] LABS: African American GFR (CKD) >90 (>60 ml/min/1.73 sqM); Anion Gap 7 mmol/L; Blood Urea Nitrogen 25 mg/dL (9-20); Calcium 8.6 mg/dL (8.4-10.2); Carbon Dioxide 21 mmol/L (22-30); Chloride 103 mmol/L (98-107); Glucose 108 mg/dL (74-99); Magnesium 1.9 mg/dL (1.6-2.3); Non-African American GFR(CKD) 87 (>60 ml/min/1.73 sqM); Potassium 4.6 mmol/L (3.5-5.1); Sodium 131 mmol/L (137-145)
[2019-11-16 06:59] LABS: Glucose,Whole Blood 92 mg/dL (75-99)
[2019-11-16] MEDS: INSULIN ASPART (NovoLOG) 100 UNIT/ML VIAL SQ SCH ×2 (07:14→12:20)
[2019-11-16] MEDS: ASPIRIN 81 MG PO SCH (08:39)
[2019-11-16] MEDS: METOPROLOL TARTRATE 25 MG TAB PO SCH (08:39)
[2019-11-16] MEDS: TICAGRELOR 90 MG TAB PO SCH (08:39)
[2019-11-16] MEDS: ACETAMINOPHEN TAB 325 MG TAB PO PRN (08:41)
[2019-11-16] MEDS ORDERED: HEPARIN SODIUM,PORCINE 5,000 UNIT/ML 1 ML VIAL SQ SCH (09:00)
[2019-11-16 12:20] LABS: Glucose,Whole Blood 109 mg/dL (75-99)
--- NOTE | 2019-11-16 12:41 | P.DS ---
Providers Date of admission: 11/12/19 17:53 Expected date of discharge: 11/16/19 Attending physician: Blayne Lyn Consults: 11/12/19 19:01 Consult Physician Routine Consulting Provider: [facility] Consult Reason/Comments: Post Interventional patient Do you want consulting provider notified?: Already Contacted [facility]: Presenting complaint: Chest pain Interval history: Patient admitted with chest pain or shortness of breath. EKG showed left Bundle-branch block. Cardiac cath showed 99% mid LAD lesion and disease in other vessels. Admitted with unstable angina. LAD-successful drug- eluting stenting. Today-sitting up in bed. Comfortable. Breathing is stable. Cleared by cardiology. Discussed with patient. Consultation: [facility] On examination: VITAL SIGNS: 98, 77, 25, 105/85, 96% room air GENERAL APPEARANCE: Propped up in bed, comfortable EYES: Pupils equal. Conjunctiva normal. NECK: JVD not raised. Mass not palpable. RESPIRATORY: Respiratory effort normal. Lungs clear to auscultation. CARDIOVASCULAR: First and second sounds normal. No edema. ABDOMEN: Soft. Liver and spleen not palpable. No tenderness. No mass palpable. PSYCHIATRY: Alert and oriented x3. Mood and affect normal. INVESTIGATIONS, reviewed in the clinical context: White count 13.3 hemoglobin 14.5 potassium 4.6 creatinine 0.80 COVID 19 P/Cr-not detected Previous testing White count 14 hemoglobin 14.2 platelets 255 potassium 4.6 creatinine 0.81 sodium 129 2-D echocardiogram-EF 50-55%, wall motion abnormality Assessment: -Unstable angina -Coronary artery disease with a stent to LAD -Essential hypertension -Kidney stones asymptomatic -Primary osteoarthritis -Chronic constipation Disposition: [facility] BMP-5 days Patient Condition at Discharge: Stable Plan - Discharge Summary Discharge Rx Participant: No New Discharge Prescriptions: New Aspirin 81 mg PO DAILY chew Ticagrelor [Brilinta] 90 mg PO BID tab Atorvastatin [Lipitor] 80 mg PO HS tab Metoprolol Tartrate [Lopressor] 25 mg PO BID tab Nitroglycerin Sl Tabs [Nitrostat] 0.4 mg SUBLINGUAL Q5M PRN tab PRN Reason: Chest Pain Acetaminophen Tab [Tylenol] 650 mg PO Q6HR PRN tab PRN Reason: Fever And/ Or Pain lisinopriL [Zestril] 2.5 mg PO DAILY tab Continue Polyethylene Glycol 3350 [Miralax] 17 gm PO DAILY PRN PRN Reason: Constipation Lactulose 10 gm PO BID PRN PRN Reason: constipation tiZANidine [Zanaflex] 4 mg PO Q8HR PRN PRN Reason: muscle spasms Discontinued Irbesartan/Hydrochlorothiazide [Irbesartan-Hctz 300-12.5 mg Tb] 1 tab PO DAILY amLODIPine [Norvasc] 5 mg PO BID Pravastatin Sodium [Pravachol] 20 mg PO DAILY Discharge Medication List Lactulose 10 gm PO BID PRN 11/12/19 [History] Polyethylene Glycol 3350 [Miralax] 17 gm PO DAILY PRN 11/12/19 [History] tiZANidine [Zanaflex] 4 mg PO Q8HR PRN 11/12/19 [History] Acetaminophen Tab [Tylenol] 650 mg PO Q6HR PRN tab 11/16/19 [Rx] Aspirin 81 mg PO DAILY chew 11/16/19 [Rx] Atorvastatin [Lipitor] 80 mg PO HS tab 11/16/19 [Rx] Metoprolol Tartrate [Lopressor] 25 mg PO BID tab 11/16/19 [Rx] Nitroglycerin Sl Tabs [Nitrostat] 0.4 mg SUBLINGUAL Q5M PRN tab 11/16/19 [Rx] Ticagrelor [Brilinta] 90 mg PO BID tab 11/16/19 [Rx] lisinopriL [Zestril] 2.5 mg PO DAILY tab 11/16/19 [Rx] Follow up Appointment(s)/Referral(s): Du Lance MD [Family Provider] - 1 Week [facility], [NON-STAFF] - Jose Francisco Buckley DO [STAFF PHYSICIAN] - 11/17/19 Alejandro Langley MD [Primary Care Provider] - As Needed Patient Instructions/Handouts: Heart Attack (DC), Mediterranean Diet (DC)
--- NOTE | 2019-11-16 12:49 | PN ---
PROGRESS NOTE Mr. Ahn is a 74-year-old gentleman that is admitted to hospital with non ST-segment elevation [place], underwent cardiac catheterization and angioplasty with stent placement of mid LAD. This morning, he is doing well and is free of symptoms. His physical activity is very limited. On exam, heart rate is 77 beats per minute. Blood pressure is 104/85, respiratory rate is 18. O2 saturation is 96%. There is no jugular venous distention. Chest exam reveals good air entry bilaterally. Heart exam reveals first and second heart sounds. No gallop. Exam of extremities did not reveal any edema. Peripheral pulses are felt. LABS: Show a hemoglobin of 14.5. Potassium is 4.6, creatinine is 0.8. ASSESSMENT: 1. CAD status post angioplasty. 2. Ischemic cardiomyopathy. PLAN: Patient will continue the aspirin, Lipitor, insulin, Lopressor and Zestril along with Brilinta. MMODL / IJN: [id number] /
[2019-11-16 12:57] VITALS: BP 118/73; PULSE 71; RESP 16; TEMP 97.8
--- NOTE | 2019-11-18 11:12 | CDI ---
Documentation Clarification Form Date: 11/18/19 From: Shari Patel CCS Phone: If you have a question about this query, please contact Mimi Bentley, School Transportation Supervisor at [phone] between 8am and 5pm. Admit Date: 11/12/19 Discharge Date:11/16/19 Patient Name: Jose Francisco Ahn Visit Number: [id number] ATTENTION: The Clinical Documentation Specialists (CDI) and [facility] Coding Staff appreciate your assistance in clarifying documentation. Please respond to the clarification below the line at the bottom and electronically sign. The CDI & [facility] Coding staff will review the response and follow-up if needed. Please note: Queries are made part of the Legal Health Record. If you have any questions, please contact the author of this message via ITS. Dear Dr. Lyn, Conflicting documentation has been found in the medical record: Cardiology Consult documents: Acute anterior ST patient myocardial infarction Cardiology PNs document: Acute anterior ST elevation DC status post stenting to the LAD DS documents: Unstable angina-Coronary artery disease with a stent to LAD History/Risk Factors: HTN, Obesity, Hyperlipidemia, Ischemic cardiomyopathy Clinical Indicators: Chest pain, hypotension Lab: Troponin 0.012 CATH: The mid LAD has a tight lesion that appeared to be in the range of 99%. Treatment: PTCA, Heparin 4,000 unit IV In your opinion what is the most clinically appropriate diagnosis for this patient? Acute anterior STEMI Unstable angina Other explanation of clinical findings Unable to determine (no explanation for clinical findings) MTDD
--- NOTE | 2019-11-22 08:21 | CDI ---
Documentation Clarification Form Date: 11/22/19 From: Shari Patel CCS Phone: If you have a question about this query, please contact Mimi Bentley, Paratransit Operator at [phone] between 8am and 5pm. Admit Date: 11/12/19 Discharge Date:11/16/19 Patient Name: Jose Francisco Ahn Visit Number: [id number] ATTENTION: The Clinical Documentation Specialists (CDI) and [facility] Coding Staff appreciate your assistance in clarifying documentation. Please respond to the clarification below the line at the bottom and electronically sign. The CDI & [facility] Coding staff will review the response and follow-up if needed. Please note: Queries are made part of the Legal Health Record. If you have any questions, please contact the author of this message via ITS. Dear Dr. Lyn, Conflicting documentation has been found in the medical record: Cardiology Consult documents: Acute anterior ST patient myocardial infarction Cardiology PNs document: Acute anterior ST elevation [place] status post stenting to the LAD DS documents: Unstable angina-Coronary artery disease with a stent to LAD History/Risk Factors: HTN, Obesity, Hyperlipidemia, Ischemic cardiomyopathy Clinical Indicators: Chest pain, hypotension Lab: Troponin 0.012 CATH: The mid LAD has a tight lesion that appeared to be in the range of 99%. Treatment: PTCA, Heparin 4,000 unit IV In your opinion what is the most clinically appropriate diagnosis for this patient? Acute anterior STEMI Unstable angina Other explanation of clinical findings Unable to determine (no explanation for clinical findings) Unstable angina MTDD
== END 2019-11-16 14:17 | DRG 247 ==
LOC: EC 17:14 → 2SICU 17:53
PROVIDERS: ADMIT Hospitalist; ATTEND Hospitalist
PROC: B2111ZZ Fluoroscopy of Multiple Coronary Arteries using Low Osmolar Contrast (ICD-10-PCS; principal; 2019-11-12 17:50)
PROC: 027034Z Dilation of Coronary Artery, One Artery with Drug-eluting Intraluminal Device, Percutaneous Approach (ICD-10-PCS; principal; 2019-11-12 17:50)
PROC: 4A023N7 Measurement of Cardiac Sampling and Pressure, Left Heart, Percutaneous Approach (ICD-10-PCS; principal; 2019-11-12 17:50)
DX: I25.110 Atherosclerotic heart disease of native coronary artery with unstable angina pectoris (principal); E87.1 Hypo-osmolality and hyponatremia; I95.9 Hypotension, unspecified; Z20.828 Contact with and (suspected) exposure to other viral communicable diseases; I25.5 Ischemic cardiomyopathy; I10 Essential (primary) hypertension; E66.9 Obesity, unspecified; I44.0 Atrioventricular block, first degree; I44.7 Left bundle-branch block, unspecified; E87.5 Hyperkalemia; R73.9 Hyperglycemia, unspecified; E78.5 Hyperlipidemia, unspecified; E86.1 Hypovolemia; N20.0 Calculus of kidney; M19.91 Primary osteoarthritis, unspecified site; K59.09 Other constipation; D72.829 Elevated white blood cell count, unspecified; T50.2X5A Adverse effect of carbonic-anhydrase inhibitors, benzothiadiazides and other diuretics, initial encounter; Z71.3 Dietary counseling and surveillance; Z68.35 Body mass index [BMI] 35.0-35.9, adult; Z98.890 Other specified postprocedural states; Z79.899 Other long term (current) drug therapy; Z87.442 Personal history of urinary calculi; Z90.49 Acquired absence of other specified parts of digestive tract; Z80.42 Family history of malignant neoplasm of prostate
CPT/HCPCS: 36415; 71045; 80048; 80053; 80061; 82550; 83036; 83690; 83735; 83880; 84484; 85025; 85379; 85610; 85730; 87635; 93005; 93306; 93458; 96374; 99291

== ENCOUNTER 2021-07-15 14:36 | Emergency (ER) | payer MEDICARE ==
[2021-07-15 14:44] VITALS: TEMP 97.8
[2021-07-15 15:09] LABS: Bacteria,Urine Moderate /hpf; Mucus,Urine Many /hpf; RBC,Urine >182 /hpf (0-5); WBC,Urine >182 /hpf (0-5)
[2021-07-15 15:10] LABS: Appearance,Urine Bloody (Clear); Color,Urine Dark Red
[2021-07-15 17:01] VITALS: BP 136/78; PULSE 73; RESP 18
[2021-07-15] MEDS ORDERED: SODIUM CHLORIDE 0.9% 2,000 ML IV STA (17:12)
--- NOTE | 2021-07-15 18:08 | CT ---
EXAMINATION TYPE: CT abdomen pelvis wo con DATE OF EXAM: 07/15/2021 COMPARISON: 06/26/2018 HISTORY: blood in urine x1 week and RT side flank pain CT DLP: 1808.2 mGycm Automated exposure control for dose reduction was used. Exam performed with no contrast. There is some mild subsegmental atelectasis at the lung bases. Abdominal aorta and thoracic aorta are atheromatous. There is some mild atelectasis in the medial right lower lobe right paraspinal region. There is dense coronary artery calcification. Liver and spleen are intact. Stomach is intact. There is renal calculus not changed in position shererll red to old exam. No pancreatic mass. There are clips from cholecystectomy. There is no adrenal mass. Kidneys have normal size. There is 2 cm nonobstructing calculus in the righ t kidney. There is renal cortical thinning. No retroperitoneal adenopathy. Abdominal aorta shows no a neurysm. The bladder distends smoothly. There is no inguinal hernia. No free fluid in the pelvis. The re are few sigmoid diverticula. No diverticulitis. Terminal ileum appears normal. No evidence of a teresa wel obstruction. No mesenteric edema. No ascites. No evidence of free air. Appendix not seen. No sign of thickened appendix. There is multilevel posterior fusion surgery in the lumbar spine from L2 to S1 level. No significant compression deformity. Bony pelvis is intact. The hip joints are intact. No evidence of focal bone de struction. Sacroiliac joints are intact. IMPRESSION: There is some mild scarring and atelectasis at the lung bases without change. Large nonobstructing ri ght renal calculus without change. Mild symmetric renal atrophy. Renal calculus not changed in positi on compared to old exam.
[2021-07-15 18:16] LABS: Basophils # (A) 0.1 k/uL (0-0.2); Basophils % (A) 1 %; Eosinophils # (A) 0.2 k/uL (0-0.7); Eosinophils % (A) 2 %; HCT 52.8 % (39.0-53.0); HGB 17.5 gm/dL (13.0-17.5); Lymphocytes # (A) 1.5 k/uL (1.0-4.8); Lymphocytes % (A) 14 %; MCH 31.5 pg (25.0-35.0); MCHC 33.1 g/dL (31.0-37.0); MCV 95.2 fL (80.0-100.0); Mean Platelet Volume 6.8; Monocytes # (A) 0.7 k/uL (0-1.0); Monocytes % (A) 6 %; Neutrophils # (A) 8.6 k/uL (1.3-7.7); Neutrophils % (A) 77 %; Platelet Count 205 k/uL (150-450); RBC 5.55 m/uL (4.30-5.90); RDW 13.3 % (11.5-15.5); WBC 11.2 k/uL (3.8-10.6)
[2021-07-15 18:25] LABS: ALT 25 U/L (4-49); AST 34 U/L (17-59); African American GFR (CKD) >90 (>60 ml/min/1.73 sqM); Alkaline Phosphatase 136 U/L (38-126); Anion Gap 8 mmol/L; Blood Urea Nitrogen 13 mg/dL (9-20); Carbon Dioxide 27 mmol/L (22-30); Chloride 97 mmol/L (98-107); Glucose 109 mg/dL (74-99); Lipase 156 U/L (23-300); Non-African American GFR(CKD) 83 (>60 ml/min/1.73 sqM); Potassium 4.6 mmol/L (3.5-5.1); Sodium 132 mmol/L (137-145); Total Bilirubin 4.7 mg/dL (0.2-1.3); Total Protein 7.2 g/dL (6.3-8.2)
[2021-07-15] MEDS ORDERED: FLUCONAZOLE 150 MG TAB PO STA (18:43)
[2021-07-15] MEDS ORDERED: LEVOFLOXACIN 500 MG TAB PO STA (18:46)
--- NOTE | 2021-07-15 18:50 | ED ---
Male Urogenital HPI - General Chief complaint: Urogenital Stated complaint: Blood in urine Time Seen by Provider: 07/15/21 16:56 Source: patient Mode of arrival: ambulatory Limitations: no limitations - History of Present Illness Initial comments: Patient is a 75-year-old male who presents to the emergency department with a chief complaint of blood in urine. Patient's daughter is at bedside and helps provide history. Patient states symptoms started a week and half ago. Patient states at one point during the week he felt a mild pain in his right side however this resolved within 5 minutes. He states he otherwise has felt very well. He denies burning with urination, increased urinary frequency/urgency, nausea, and vomiting. No problems with bowel movements. Patient has history of right sided kidney stone with lithotripsy. Unsure if all pieces have passed. Patient's daughter is also concerned with a rash under patient's abdominal folds . Patient was given nystatin from his primary care provider for deondre dermatitis however his daughter states that the nystatin is almost gone and the rash is getting worse. She has concern that patient is not taking care of himself at home. She states patient normally has a nurse aide visit him 2 times a week but there has been short staffing within the company so he is no longer receiving home health care. - Related Data Home Medications Medication Instructions Recorded Confirmed Lactulose 10 gm PO BID PRN 11/12/19 11/12/19 Polyethylene Glycol 3350 [Miralax] 17 gm PO DAILY PRN 11/12/19 11/12/19 tiZANidine [Zanaflex] 4 mg PO Q8HR PRN 11/12/19 11/12/19 Previous Rx's Medication Instructions Recorded Acetaminophen Tab [Tylenol] 650 mg PO Q6HR PRN tab 11/16/19 Aspirin 81 mg PO DAILY chew 11/16/19 Atorvastatin [Lipitor] 80 mg PO HS tab 11/16/19 Metoprolol Tartrate [Lopressor] 25 mg PO BID tab 11/16/19 Nitroglycerin Sl Tabs [Nitrostat] 0.4 mg SUBLINGUAL Q5M PRN tab 11/16/19 Ticagrelor [Brilinta] 90 mg PO BID tab 11/16/19 lisinopriL [Zestril] 2.5 mg PO DAILY tab 11/16/19 Ciprofloxacin HCl [Cipro] 500 mg PO Q12HR 10 Days #20 tab 07/15/21 Fluconazole [Diflucan] 150 mg PO ONCE #1 tab 07/15/21 Allergies Allergy/AdvReac Type Severity Reaction Status Date / Time No Known Allergies Allergy Verified 07/15/21 14:43 Review of Systems ROS Statement: Those systems with pertinent positive or pertinent negative responses have been documented in the HPI. ROS Other: All systems not noted in ROS Statement are negative. Past Medical History Past Medical History: Coronary Artery Disease (CAD), Hyperlipidemia, Hypertension, Myocardial Infarction (DC) Additional Past Medical History / Comment(s): "gallbladder caused jaundice- admitted to hospital June 2018",degenerative back disease, kidney stone History of Any Multi-Drug Resistant Organisms: None Reported Past Surgical History: Back Surgery, Cholecystectomy, Heart Catheterization With Stent Past Anesthesia/Blood Transfusion Reactions: No Reported Reaction Additional Past Anesthesia/Blood Transfusion Reaction / Comment(s): never has had general anesthesia or blood transfusion Past Psychological History: No Psychological Hx Reported Smoking Status: Never smoker Past Alcohol Use History: None Reported Past Drug Use History: None Reported - Past Family History Mother Family Medical History: No Reported History Father History Unknown: Yes Family Medical History: Pneumonia Additional Family Medical History / Comment(s): prostate cancer General Exam Limitations: no limitations General appearance: alert, in no apparent distress Head exam: Present: atraumatic, normocephalic, normal inspection Eye exam: Present: normal appearance, PERRL, EOMI. Absent: scleral icterus, conjunctival injection, periorbital swelling Respiratory exam: Present: normal lung sounds bilaterally. Absent: respiratory distress, wheezes, rales, rhonchi, stridor Cardiovascular Exam: Present: regular rate, normal rhythm, normal heart sounds. Absent: systolic murmur, diastolic murmur, rubs, gallop, clicks GI/Abdominal exam: Present: soft, normal bowel sounds, other (significant deondre dermatitis under abdominal fold). Absent: distended, tenderness, guardi ng, rebound, rigid Back exam: Present: normal inspection, CVA tenderness (R) (Mild). Absent: CVA tenderness (L) Neurological exam: Present: alert, oriented X3, CN II-XII intact Psychiatric exam: Present: normal affect, normal mood Skin exam: Present: warm, dry, intact. Absent: normal color (Periorbital jaundice), rash Course Vital Signs 07/15/21 07/15/21 14:39 17:01 Temperature 97.8 F Pulse Rate 69 73 Respiratory 22 18 Rate Blood Pressure 139/76 136/78 O2 Sat by Pulse 96 98 Oximetry Medical Decision Making - Medical Decision Making This is a 75-year-old male who presents with blood in urine. Thorough history and examination were performed. Patient appears unkept and mildly jaundiced around the eyes. He is afebrile. Denies pain currently. Denies nausea and vomiting. Denies burning with urination. Patient has mild right-sided CVA tenderness. Has history of right kidney stone with lithotripsy. I did inspect the urine personally. Gross hematuria was appreciated. With patient's blood and urine, history of right-sided stone, and mild right-sided CVA tenderness on physical exam, I will obtain a CT of the abdomen and pelvis without contrast for rule out kidney stone. This showed a large nonobstructing right renal calculus without change from previous imaging. Laboratory studies show a mild leukocytosis at 11.2. Bilirubin is elevated at 4.7. Patient does not have abdominal pain. Urinalysis is indicative of infection and blood with moderate bacteria and significant blood. Results discussed with patient. Although patient does not have burning with urination I will treat with antibiotics for potential hemorrhagic cystitis. He will be referred to a urologist for further evaluation of blood in the urine. Patient also given nystatin cream for his candidal infection. There is a significant candidal appearing rash under the abdominal fold. His daughter who is a nurse requests Diflucan for the rash as she states it has been getting w orse with nystatin cream. I will prescribe this as patient does not have homecare anymore. I also had discussion with patient and his daughter regarding patient's elevated bilirubin. Patient to follow up with his primary care provider regarding abnormal bilirubin. Return parameters discussed. Patient is out of her verbalized understanding and are agreeable to this plan. Dr. Zimmer is my attending. - Lab Data Result diagrams: 07/15/21 18:02 07/15/21 18:02 Lab Results 07/15/21 07/15/21 07/15/21 Range/Units 14:45 18:02 18:02 WBC 11.2 H (3.8-10.6) k/uL RBC 5.55 (4.30-5.90) m/uL Hgb 17.5 (13.0-17.5) gm/dL Hct 52.8 (39.0-53.0) % MCV 95.2 (80.0-100.0) fL MCH 31.5 (25.0-35.0) pg MCHC 33.1 (31.0-37.0) g/dL RDW 13.3 (11.5-15.5) % Plt Count 205 (150-450) k/uL MPV 6.8 Neutrophils % 77 % Lymphocytes % 14 % Monocytes % 6 % Eosinophils % 2 % Basophils % 1 % Neutrophils # 8.6 H (1.3-7.7) k/uL Lymphocytes # 1.5 (1.0-4.8) k/uL Monocytes # 0.7 (0-1.0) k/uL Eosinophils # 0.2 (0-0.7) k/uL Basophils # 0.1 (0-0.2) k/uL Sodium 132 L (137-145) mmol/L Potassium 4.6 (3.5-5.1) mmol/L Chloride 97 L (98-107) mmol/L Carbon Dioxide 27 (22-30) mmol/L Anion Gap 8 mmol/L BUN 13 (9-20) mg/dL Creatinine 0.88 (0.66-1.25) mg/dL Est GFR (CKD-EPI)AfAm >90 (>60 ml/min/1.73 sqM) Est GFR (CKD-EPI)NonAf 83 (>60 ml/min/1.73 sqM) Glucose 109 H (74-99) mg/dL Calcium 9.0 (8.4-10.2) mg/dL Total Bilirubin 4.7 H (0.2-1.3) mg/dL AST 34 (17-59) U/L ALT 25 (4-49) U/L Alkaline Phosphatase 136 H (38-126) U/L Total Protein 7.2 (6.3-8.2) g/dL Albumin 4.0 (3.5-5.0) g/dL Lipase 156 (23-300) U/L Urine Color Dark Red Urine Appearance Bloody (Clear) Urine RBC >182 H (0-5) /hpf Urine WBC >182 H (0-5) /hpf Urine Bacteria Moderate H (None) /hpf Urine Mucus Many H (None) /hpf Disposition Clinical Impression: Candidal dermatitis, Blood in urine, Urinary tract infection, Flank pain, acute, Total bilirubin, elevated Disposition: HOME SELF-CARE Condition: Good Instructions (If sedation given, give patient instructions): Urinary Tract Infection in Men (ED), Yeast Infection (ED) Additional Instructions: Please take medication as directed. Follow-up with urology in 1-2 days. Please follow-up with primary care provider regarding elevated total bilirubin at 4.7. Return to the emergency department if you experience new, concerning, or worsening symptoms. Prescriptions: Ciprofloxacin HCl [Cipro] 500 mg PO Q12HR 10 Days #20 tab Fluconazole [Diflucan] 150 mg PO ONCE #1 tab Is patient prescribed a controlled substance at d/c from ED?: No Referrals: Alejandro Langley MD [Primary Care Provider] - 1-2 days Abdoulaye Campoverde MD [STAFF PHYSICIAN] - 1-2 days Time of Disposition: 18:50
[2021-07-15] MEDS ORDERED: NYSTATIN 100,000UNIT/GM CREAM 30 GM TUBE TOPICAL SCH (21:00)
== END 2021-07-15 20:00 | disposition home or self-care (01) ==
LOC: EC 14:36
DX: N39.0 Urinary tract infection, site not specified (principal); B37.2 Candidiasis of skin and nail; R31.9 Hematuria, unspecified; E78.5 Hyperlipidemia, unspecified; I25.2 Old myocardial infarction
CPT/HCPCS: 36415; 74176; 80053; 81001; 83690; 85025; 87086; 96360; 99284

== ENCOUNTER → 2021-09-18 | Outpatient (CLI) | payer MEDICARE ==
[2021-09-18 22:33] LABS: Basophils # (A) 0.06 X 10*3/uL (0.00-0.10); Basophils % (A) 0.6 %; Eosinophils # (A) 0.08 X 10*3/uL (0.04-0.35); Eosinophils % (A) 0.8 %; HCT 49.5 % (39.6-50.0); HGB 16.7 g/dL (13.0-17.0); Immature Grans, Automated 0.4 %; Lymphocytes # (A) 1.49 X 10*3/uL (0.90-5.00); Lymphocytes % (A) 15.1 %; MCH 30.8 pg (27.0-32.0); MCHC 33.7 g/dL (32.0-37.0); MCV 91.2 fL (80.0-97.0); Mean Platelet Volume 9.3 fL (9.5-12.2); Monocytes # (A) 0.76 X 10*3/uL (0.20-1.00); Monocytes % (A) 7.7 %; NRBC Per 100 WBC 0 /100 WBCS (0.0-0.0); Neutrophils # (A) 7.42 X 10*3/uL (1.80-7.70); Neutrophils % (A) 75.4 %; Platelet Count 249 X 10*3/uL (140-440); RBC 5.43 X 10*6/uL (4.40-5.60); WBC 9.85 X 10*3/uL (4.50-10.00)
[2021-09-18 23:03] LABS: African American GFR (CKD) 94.5 (60.0-200.0); Albumin 3.9 g/dL (3.8-4.9); Albumin/Globulin Ratio 1.26 (1.60-3.17); BUN/Creat Ratio 10.78 Ratio (12.00-20.00); Blood Urea Nitrogen 9.7 mg/dL (9.0-27.0); Calcium 9.3 mg/dL (8.7-10.3); Globulin 3.1 g/dL (1.6-3.3); Non-African American GFR(CKD) 81.5 (60.0-200.0); Potassium 4.3 mmol/L (3.5-5.5); Total Bilirubin 2.7 mg/dL (0.30-1.20)
[2021-09-19 03:34] LABS: Appearance,Urine Turbid (Clear); Bilirubin,Urine Small (Negative); Blood,Urine Large (Negative); Color,Urine Orange (Yellow); Ketones,Urine Negative (Negative); Nitrite,Urine Negative (Negative); Specific Gravity,Urine 1.017 (1.001-1.030)
== END | disposition home or self-care (01) ==
LOC: LABPAT 15:10
PROVIDERS: ATTEND Urology
DX: Z01.818 Encounter for other preprocedural examination (principal); I44.7 Left bundle-branch block, unspecified; I44.0 Atrioventricular block, first degree; N20.0 Calculus of kidney; R94.31 Abnormal electrocardiogram [ECG] [EKG]
CPT/HCPCS: 80053; 81001; 85025; 87086; 93005

== ENCOUNTER 2021-12-13 08:03 | Observation (INO) | payer MEDICARE ==
[2021-12-13 08:25] LABS: Glucose,Whole Blood 127 mg/dL (70-110)
[2021-12-13 08:26] LABS: Basophils # (A) 0.1 k/uL (0-0.2); Basophils % (A) 1 %; Eosinophils # (A) 0.2 k/uL (0-0.7); Eosinophils % (A) 3 %; HCT 49.1 % (39.0-53.0); HGB 17.1 gm/dL (13.0-17.5); Lymphocytes # (A) 2.3 k/uL (1.0-4.8); Lymphocytes % (A) 25 %; MCH 31.3 pg (25.0-35.0); MCHC 34.7 g/dL (31.0-37.0); MCV 90.2 fL (80.0-100.0); Monocytes # (A) 0.5 k/uL (0-1.0); Monocytes % (A) 6 %; Neutrophils # (A) 5.9 k/uL (1.3-7.7); Neutrophils % (A) 64 %; Platelet Count 220 k/uL (150-450); RBC 5.44 m/uL (4.30-5.90); RDW 13.5 % (11.5-15.5); WBC 9.3 k/uL (3.8-10.6)
[2021-12-13 08:42] LABS: ALT 19 U/L (4-49); AST 26 U/L (17-59); African American GFR (CKD) >90 (>60 ml/min/1.73 sqM); Albumin 3.9 g/dL (3.5-5.0); Alkaline Phosphatase 141 U/L (38-126); Anion Gap 12 mmol/L; Blood Urea Nitrogen 13 mg/dL (9-20); Calcium 9.1 mg/dL (8.4-10.2); Carbon Dioxide 23 mmol/L (22-30); Chloride 99 mmol/L (98-107); Glucose 136 mg/dL (74-99); Non-African American GFR(CKD) 88 (>60 ml/min/1.73 sqM); Sodium 134 mmol/L (137-145); Total Bilirubin 3.2 mg/dL (0.2-1.3)
[2021-12-13 08:43] LABS: INR 1.2 (<1.2); Partial Thromboplastin Time 28.7 sec (22.0-30.0); Prothrombin Time 12.8 sec (9.0-12.0)
--- NOTE | 2021-12-13 09:16 | CT ---
EXAMINATION TYPE: CT brain wo con CT DLP: 1174.6 mGycm, Automated exposure control for dose reduction was used. DATE OF EXAM: 12/13/2021 9:10 AM COMPARISON: None. CLINICAL INDICATION:Male, 76 years old with history of Neuro deficit, acute, stroke suspected, Expres sive Aphasia TECHNIQUE: Brain: Multiple axial CT images of the brain were obtained without IV contrast. Coronal sagittal refo rmats reviewed. FINDINGS: Brain: Extra-axial spaces: No abnormal extra-axial fluid collections. Ventricular system: Dilatation in proportion to cerebral atrophy. Cerebral parenchyma: No acute intraparenchymal hemorrhage or mass effect. The hendrix-white junction is well differentiated. Scattered hypoattenuating areas are seen within the white matter. Cerebral vol ume loss. Tiny remote lacunar injury within the left basal ganglia. Cerebellum: Unremarkable. Mass effect: No evidence of midline shift. Intracranial vasculature: Atherosclerotic calcifications of the intracranial vessels. Soft tissues: Normal. Calvarium/osseous structures: No depressed skull fracture. Paranasal sinuses and mastoid air cells: Mild mucosal thickening of the right maxillary sinus. Visualized orbits: Orbital contents are intact. IMPRESSION: 1. No acute intracranial process. 2. Remote lacunar injuries along with nonspecific white matter changes likely secondary to chronic mi croangiopathy.
--- NOTE | 2021-12-13 09:20 | XR ---
EXAMINATION TYPE: XR chest 2V DATE OF EXAM: 12/13/2021 COMPARISON: 11/12/2019 TECHNIQUE: PA and lateral views submitted. HISTORY: Altered mental status FINDINGS: The lungs are clear and there is no pneumothorax, pleural effusion, or focal pneumonia. Limited ins piration with ectasia of the aorta and atherosclerotic changes. Arthropathy and shoulders. Postsurgic al change involving the vertebral column. IMPRESSION: 1. No acute process.
--- NOTE | 2021-12-13 09:57 | ED ---
General Adult HPI - General Chief complaint: Neuro Symptoms/Deficit Stated complaint: Stroke/AMS Time Seen by Provider: 12/13/21 08:10 Source: patient, EMS Mode of arrival: ambulatory Limitations: no limitations - History of Present Illness Initial comments: 76-year-old male with past medical history of coronary artery disease with stent placement, hypertension, hyperlipidemia and renal stones who presents to the emergency department with speech difficulties. Patient went to bed at 10 PM. He awoke this morning and his physical therapist came to the house. When he began speaking to the physical therapist he noted that he was having difficulty getting his words out. He denies any headaches or visual changes. No facial droop. No weakness in his arms or legs. He does take Xarelto however he is unaware of the indication. Patient admits to previous history of stroke 4 years ago. Denies any lasting deficits. He denies any chest pain or shortness of breath. No fevers, chills. No recent head trauma. No other alleviating, precipitating or modifying factors - Related Data Home Medications Medication Instructions Recorded Confirmed Furosemide [Lasix] 20 mg PO TUTH 09/24/21 12/13/21 Rivaroxaban [Xarelto] 2.5 mg PO BID 09/24/21 12/13/21 Aspirin 81 mg PO DAILY 12/13/21 12/13/21 Multivitamins, Thera [Multivitamin 1 tab PO DAILY 12/13/21 12/13/21 (formulary)] amLODIPine [Norvasc] 2.5 mg PO DAILY 12/13/21 12/13/21 Previous Rx's Medication Instructions Recorded Atorvastatin [Lipitor] 80 mg PO HS tab 11/16/19 Metoprolol Tartrate [Lopressor] 25 mg PO BID tab 11/16/19 Allergies Allergy/AdvReac Type Severity Reaction Status Date / Time No Known Allergies Allergy Verified 12/13/21 12:17 Review of Systems ROS Statement: Those systems with pertinent positive or pertinent negative responses have been documented in the HPI. ROS Other: All systems not noted in ROS Statement are negative. Past Medical History Past Medical History: Coronary Artery Disease (CAD), Hyperlipidemia, Hypertension, Myocardial Infarction ([place]) Additional Past Medical History / Comment(s): "gallbladder caused jaundice- admitted to hospital June 2018",degenerative back disease, kidney stone History of Any Multi-Drug Resistant Organisms: None Reported Past Surgical History: Back Surgery, Cholecystectomy, Heart Catheterization With Stent Past Anesthesia/Blood Transfusion Reactions: No Reported Reaction Additional Past Anesthesia/Blood Transfusion Reaction / Comment(s): never has had general anesthesia or blood transfusion Past Psychological History: No Psychological Hx Reported Smoking Status: Never smoker Past Alcohol Use History: None Reported Past Drug Use History: None Reported - Past Family History Mother Family Medical History: No Reported History Father History Unknown: Yes Family Medical History: Pneumonia Additional Family Medical History / Comment(s): prostate cancer General Exam Limitations: no limitations General appearance: alert, in no apparent distress Head exam: Present: atraumatic, normocephalic, normal inspection Eye exam: Present: normal appearance, PERRL, EOMI. Absent: scleral icterus, conjunctival injection, periorbital swelling ENT exam: Present: normal exam, mucous membranes moist Neck exam: Present: normal inspection. Absent: tenderness, meningismus, lymph adenopathy Respiratory exam: Present: normal lung sounds bilaterally. Absent: respiratory distress, wheezes, rales, rhonchi, stridor Cardiovascular Exam: Present: regular rate, normal rhythm, normal heart sounds. Absent: systolic murmur, diastolic murmur, rubs, gallop, clicks GI/Abdominal exam: Present: soft, normal bowel sounds. Absent: distended, tenderness, guarding, rebound, rigid Extremities exam: Present: normal inspection, full ROM, normal capillary refill. Absent: tenderness, pedal edema, joint swelling, calf tenderness Back exam: Present: normal inspection Neurological exam: Present: alert, oriented X3, CN II-XII intact Psychiatric exam: Present: normal affect, normal mood Skin exam: Present: warm, dry, intact, normal color. Absent: rash Course Vital Signs 12/13/21 12/13/21 12/13/21 08:05 10:11 16:16 Pulse Rate 84 86 89 Respiratory 18 18 18 Rate Blood Pressure 139/112 127/94 131/90 O2 Sat by Pulse 98 97 Oximetry EKG Findings - EKG Comments: EKG Findings:: EKG demonstrates sinus rhythm with a rate of 88. NC interval 210. QRS 154. QTC 443. There is a left bundle-branch block. No ST segment elevation or depression- negative for sgarbossa criteria. Medical Decision Making - Medical Decision Making Upon arrival patient was placed into room 7. Thorough history and physical exam was performed. Patient placed on continuous pulse ox and cardiac monitoring. NIH is assessed and is negative. Laboratory says her conducted. Patient does go for CT and CT angiography which demonstrates chronic vascular ischemia however no acute findings of stroke. He has no return of any strokelike symptoms. Patient will be admitted for neurology consultation. Given aspirin and a statin. Blood thinner will be held at this time until neurology approves. Patient was agreeable to this plan. Spoke with Dr. Worrell who agreed to admission. - Lab Data Result diagrams: 12/14/21 08:49 12/14/21 08:49 Lab Results 12/13/21 12/13/21 12/13/21 Range/Units 08:18 08:18 08:18 WBC 9.3 (3.8-10.6) k/uL RBC 5.44 (4.30-5.90) m/uL Hgb 17.1 (13.0-17.5) gm/dL Hct 49.1 (39.0-53.0) % MCV 90.2 (80.0-100.0) fL MCH 31.3 (25.0-35.0) pg MCHC 34.7 (31.0-37.0) g/dL RDW 13.5 (11.5-15.5) % Plt Count 220 (150-450) k/uL MPV 7.0 Neutrophils % 64 % Lymphocytes % 25 % Monocytes % 6 % Eosinophils % 3 % Basophils % 1 % Neutrophils # 5.9 (1.3-7.7) k/uL Lymphocytes # 2.3 (1.0-4.8) k/uL Monocytes # 0.5 (0-1.0) k/uL Eosinophils # 0.2 (0-0.7) k/uL Basophils # 0.1 (0-0.2) k/uL PT 12.8 H (9.0-12.0) sec INR 1.2 H (<1.2) APTT 28.7 (22.0-30.0) sec Sodium 134 L (137-145) mmol/L Potassium 4.0 (3.5-5.1) mmol/L Chloride 99 (98-107) mmol/L Carbon Dioxide 23 (22-30) mmol/L Anion Gap 12 mmol/L BUN 13 (9-20) mg/dL Creatinine 0.74 (0.66-1.25) mg/dL Est GFR (CKD-EPI)AfAm >90 (>60 ml/min/1.73 sqM) Est GFR (CKD-EPI)NonAf 88 (>60 ml/min/1.73 sqM) Glucose 136 H (74-99) mg/dL POC Glucose (mg/dL) (70-110) mg/dL POC Glu Dupligraph Operator ID Calcium 9.1 (8.4-10.2) mg/dL Total Bilirubin 3.2 H (0.2-1.3) mg/dL AST 26 (17-59) U/L ALT 19 (4-49) U/L Alkaline Phosphatase 141 H (38-126) U/L Troponin I (0.000-0.034) ng/mL Total Protein 7.0 (6.3-8.2) g/dL Albumin 3.9 (3.5-5.0) g/dL Urine Color Urine Appearance (Clear) Urine pH (5.0-8.0) Ur Specific [place] (1.001-1.035) Urine Protein (Negative) Urine Glucose (UA) (Negative) Urine Ketones (Negative) Urine Blood (Negative) Urine Nitrite (Negative) Urine Bilirubin (Negative) Urine Urobilinogen (<2.0) mg/dL Ur Leukocyte Esterase (Negative) Urine RBC (0-5) /hpf Urine WBC (0-5) /hpf Urine Mucus (None) /hpf 12/13/21 12/13/21 12/13/21 Range/Units 08:18 08:23 10:18 WBC (3.8-10.6) k/uL RBC (4.30-5.90) m/uL Hgb (13.0-17.5) gm/dL Hct (39.0-53.0) % MCV (80.0-100.0) fL MCH (25.0-35.0) pg MCHC (31.0-37.0) g/dL RDW (11.5-15.5) % Plt Count (150-450) k/uL MPV Neutrophils % % Lymphocytes % % Monocytes % % Eosinophils % % Basophils % % Neutrophils # (1.3-7.7) k/uL Lymphocytes # (1.0-4.8) k/uL Monocytes # (0-1.0) k/uL Eosinophils # (0-0.7) k/uL Basophils # (0-0.2) k/uL PT (9.0-12.0) sec INR (<1.2) APTT (22.0-30.0) sec Sodium (137-145) mmol/L Potassium (3.5-5.1) mmol/L Chloride (98-107) mmol/L Carbon Dioxide (22-30) mmol/L Anion Gap mmol/L BUN (9-20) mg/dL Creatinine (0.66-1.25) mg/dL Est GFR (CKD-EPI)AfAm (>60 ml/min/1.73 sqM) Est GFR (CKD-EPI)NonAf (>60 ml/min/1.73 sqM) Glucose (74-99) mg/dL POC Glucose (mg/dL) 127 H (70-110) mg/dL POC Glu Dupligraph Operator ID Elvis Carballo Calcium (8.4-10.2) mg/dL Total Bilirubin (0.2-1.3) mg/dL AST (17-59) U/L ALT (4-49) U/L Alkaline Phosphatase (38-126) U/L Troponin I <0.012 (0.000-0.034) ng/mL Total Protein (6.3-8.2) g/dL Albumin (3.5-5.0) g/dL Urine Color Light Red Urine Appearance Cloudy (Clear) Urine pH 6.5 (5.0-8.0) Ur Specific [place] 1.039 H (1.001-1.035) Urine Protein 2+ H (Negative) Urine Glucose (UA) Negative (Negative) Urine Ketones Trace H (Negative) Urine Blood Large H (Negative) Urine Nitrite Negative (Negative) Urine Bilirubin Negative (Negative) Urine Urobilinogen <2.0 (<2.0) mg/dL Ur Leukocyte Esterase Moderate H (Negative) Urine RBC >182 H (0-5) /hpf Urine WBC 80 H (0-5) /hpf Urine Mucus Few H (None) /hpf Disposition Clinical Impression: Aphasia, TIA (transient ischemic attack) Disposition: ADMITTED IP TO THIS HOSP Condition: Stable Is patient prescribed a controlled substance at d/c from ED?: No Time of Disposition: 11:14 Decision to Admit Reason: Admit from EC Decision Date: 12/13/21 Decision Time: 11:14
--- NOTE | 2021-12-13 10:01 | CT ---
EXAMINATION TYPE: CT angio head neck DATE OF EXAM: 12/13/2021 HISTORY: Expressive Aphasia COMPARISON: 12/13/[address] DLP: 720.8 mGycm. Automated Exposure Control for Dose Reduction was Utilized. TECHNIQUE: CTA scan of the head and neck is performed with IV Contrast, patient injected with 65 mL of Isovue 370, axial images are obtained, coronal and sagittal reformatted images are reviewed. 3D re constructed images are created on an independent workstation and reviewed. FINDINGS: Groundglass changes are seen in the upper lobes. Atherosclerotic change of the aortic arch. There is ectasia of the origin of the great vessels. Atherosclerotic changes are seen with no definite atrophi c in stenosis of the origin. Visualized portions of the subclavian arteries are patent. A vascular ki nk involving the mid right subclavian artery diagnosis Left vertebral artery is dominant. There is moderate generalized degenerative change with low attenuation in the white matter most typic al of remote ischemia. Dural venous sinuses appear patent. Vertebral basilar and posterior cerebral a rteries are patent and originate from the basilar artery. There is a intracranial atherosclerotic disease and calcifications seen involving the cavernous segme nt of bilateral internal carotid artery. The middle cerebral and anterior cerebral arteries are paten t bilaterally with no sizable aneurysm. IMPRESSION: 1. No significant carotid bifurcation stenosis. 2. No evidence of intracranial sizable aneurysm or significant stenosis 3. Ectasia of the visualized vasculature. Vascular kink involving the mid right-sided subclavian solis ry in the differential diagnosis. 4 degenerative and nonspecific white matter change. If concern for acute ischemia correlate with MRI as clinically warranted. 4. Nonspecific groundglass changes involving the lung apices. Respiratory motion versus pneumonitis a re likely NASCET criteria was used in interpretation of this exam?
[2021-12-13] MEDS ORDERED: NALOXONE 0.4 MG/ML 1 ML VIAL IV PRN (11:14)
[2021-12-13] MEDS ORDERED: ASPIRIN 325 MG TAB PO STA (11:16)
[2021-12-13] MEDS ORDERED: ATORVASTATIN 40 MG TAB PO STA (11:17)
[2021-12-13 11:43] LABS: Appearance,Urine Cloudy (Clear); Bilirubin,Urine Negative (Negative); Blood,Urine Large (Negative); Color,Urine Light Red; Glucose,Urine (UA) Negative (Negative); Ketones,Urine Trace (Negative); Leukocyte Esterase,Urine Moderate (Negative); Mucus,Urine Few /hpf; Nitrite,Urine Negative (Negative); PH, Urine 6.5 (5.0-8.0); Protein,Urine 2+ (Negative); RBC,Urine >182 /hpf (0-5); Specific Gravity,Urine 1.039 (1.001-1.035); Urobilinogen,Urine <2.0 mg/dL (<2.0); WBC,Urine 80 /hpf (0-5)
[2021-12-13] MEDS ORDERED: ACETAMINOPHEN TAB 325 MG TAB PO PRN (13:29)
--- NOTE | 2021-12-13 14:06 | P.HPIM ---
History of Present Illness H&P Date: 12/13/21 Patient is a 68-year-old male with history of stroke years ago, on Xarelto for unknown indication, coronary artery disease status post PCI, hypertension, dyslipidemia, and kidney stones who presented to the emergency department with speech difficulties. The ER he was noted to have diastolic hypertension with a diastolic blood pressure of 112. Laboratory analysis was significant for bilirubin 3.2, and gross hematuria with UA that showed greater than [address] head shown remote lacunar infarct. Chest x-ray showed no acute process. CT of the head and neck demonstrated a vascular kink in the right sided subclavian artery as well as degenerative and nonspecific white matter changes. EKG demonstrated sinus rhythm with first-degree AV block and left bundle branch block. Patient seen and examined at bedside. He reports that last night at about 10 PM in his normal state of health. He will come at 6 in the morning and noted some speech difficulties. His physical therapist came at 7:15 and noticed significant speech difficulties. They therefore activated EMS. He believes that his speech was back to normal by the time he arrived at the hospital near [address] Ahumada and recently increased his lisinopril however he has no other medication changes recently. He has not missed any doses of his medications. He at a similar experience at age 55 where he developed aphasia and was found to have a stroke. He denies any weakness, numbness, tingling. He denies any facial asymmetry. No recent cough, cold, fever, flu. Pertinent positives and negatives as discussed in HPI, a complete review of systems was performed and all other systems are negative. Vital signs reviewed General: nontoxic, no distress, appears at stated age Derm: warm, dry Head: atraumatic, normocephalic, symmetric Eyes: EOMI, no lid lag, anicteric sclera, pupils equal round reactive to light ENT: Nose and ears atraumatic, no thrush, no pharyngeal erythema Neck: No thyromegaly, no cervical lymphadenopathy, trachea midline, supple Mouth: no lip lesion, mucus membranes moist Cardiovascular: S1S2 reg, no murmur, positive posterior tibial pulse bilateral, no edema, capillary refill less than 2 seconds Lungs: clear to auscultation bilateral, no rhonchi, no rales, no wheeze, no accessory muscle use Abdominal: soft, nontender to palpation, no guarding, no appreciable orga nomegaly, normal bowel sounds Ext: no gross muscle atrophy, muscle strength 5 out of 5 in bilateral upper extremities, 4 out of 5 in bilateral lower extremities, no contractures, ulnar deviation with but deformity is on the fingers of the right hand Neuro: CN II-XII grossly intact, light touch intact all 4 extremities, finger to nose within normal limits, Psych: Alert, oriented, appropriate affect Assessment/Plan: Excessive aphasia, transient ischemic attack -Neuro checks -Await echocardiogram -Telemetry -Aspirin, consider adding Plavix the patient is already on Xarelto. -Neurology consult -MRI brain -Speech, PT, OT -Aspirin, statin -Allow for permissive hypertension for the next 24 hours -Check lipid profile, hemoglobin A1c Coronary artery disease status post PCI Hypertension Dyslipidemia -Lopressor and lisinopril are on hold -Continue with aspirin and statin Known right sided nephrolithiasis with hematuria -Has an appointment with Dr. Johnston for lithotripsy on 12/24 Left bundle branch block -Old and unchanged The patient is admitted with an anticipated less than 2 midnight stay for evaluation of TIA. Surrogate decision-maker: Daughter or son CODE STATUS:Full DVT prophylaxis: SCDs Discussed with: Patient, nursing, daughter Anticipated discharge date: in AM Anticipated discharge place: home A total of 55 minutes was spent on the care of this complex patient more than 50% of the time was spent in counseling and care coordination. Past Medical History Past Medical History: Coronary Artery Disease (CAD), Hyperlipidemia, Hypertension, Myocardial Infarction ([place]) Additional Past Medical History / Comment(s): "gallbladder caused jaundice- admitted to hospital June 2018",degenerative back disease, kidney stone History of Any Multi-Drug Resistant Organisms: None Reported Past Surgical History: Back Surgery, Cholecystectomy, Heart Catheterization With Stent Past Anesthesia/Blood Transfusion Reactions: No Reported Reaction Additional Past Anesthesia/Blood Transfusion Reaction / Comment(s): never has had general anesthesia or blood transfusion Past Psychological History: No Psychological Hx Reported Smoking Status: Never smoker Past Alcohol Use History: None Reported Past Drug Use History: None Reported Additional History: Uses a walker at all times. - Past Family History Mother Family Medical History: No Reported History Father History Unknown: Yes Family Medical History: Pneumonia Additional Family Medical History / Comment(s): prostate cancer Medications and Allergies Home Medications Medication Instructions Recorded Confirmed Type Atorvastatin [Lipitor] 80 mg PO HS tab 11/16/19 12/13/21 Rx Metoprolol Tartrate [Lopressor] 25 mg PO BID tab 11/16/19 12/13/21 Rx Furosemide [Lasix] 20 mg PO TUTH 09/24/21 12/13/21 History Rivaroxaban [Xarelto] 2.5 mg PO BID 09/24/21 12/13/21 History Aspirin 81 mg PO DAILY 12/13/21 12/13/21 History Multivitamins, Thera [Multivitamin 1 tab PO DAILY 12/13/21 12/13/21 History (formulary)] amLODIPine [Norvasc] 2.5 mg PO DAILY 12/13/21 12/13/21 History Allergies Allergy/AdvReac Type Severity Reaction Status Date / Time No Known Allergies Allergy Verified 12/13/21 12:17 Physical Exam Osteopathic Statement: *. No significant issues noted on an osteopathic structural exam other than those noted in the History and Physical/Consult. Vitals: Vital Signs Pulse Resp BP Pulse Ox 12/13/21 10:11 86 18 127/94 12/13/21 08:05 84 18 139/112 98 Intake and Output 12/12/21 12/13/21 12/13/21 22:59 06:59 14:59 Other: Weight 90.718 kg Results CBC & Chem 7: 12/13/21 08:18 12/13/21 08:18 Labs: Abnormal Lab Results - Last 24 Hours (Table) 12/13/21 12/13/21 12/13/21 Range/Units 08:18 08:18 08:23 PT 12.8 H (9.0-12.0) sec INR 1.2 H (<1.2) Sodium 134 L (137-145) mmol/L Glucose 136 H (74-99) mg/dL POC Glucose (mg/dL) 127 H (70-110) mg/dL Total Bilirubin 3.2 H (0.2-1.3) mg/dL Alkaline Phosphatase 141 H (38-126) U/L Ur Specific [place] (1.001-1.035) Urine Protein (Negative) Urine Ketones (Negative) Urine Blood (Negative) Ur Leukocyte Esterase (Negative) Urine RBC (0-5) /hpf Urine WBC (0-5) /hpf Urine Mucus (None) /hpf 12/13/21 Range/Units 10:18 PT (9.0-12.0) sec INR (<1.2) Sodium (137-145) mmol/L Glucose (74-99) mg/dL POC Glucose (mg/dL) (70-110) mg/dL Total Bilirubin (0.2-1.3) mg/dL Alkaline Phosphatase (38-126) U/L Ur Specific [place] 1.039 H (1.001-1.035) Urine Protein 2+ H (Negative) Urine Ketones Trace H (Negative) Urine Blood Large H (Negative) Ur Leukocyte Esterase Moderate H (Negative) Urine RBC >182 H (0-5) /hpf Urine WBC 80 H (0-5) /hpf Urine Mucus Few H (None) /hpf
--- NOTE | 2021-12-13 16:05 | P.CNNES ---
History of Present Illness Consult date: 12/13/21 Requesting physician: Cha Covington Reason for Consult: acute transient expressive aphasia, possible tia History of Present Illness: This is a 76 -year-old gentleman with history of stroke, patient is on Xarelto, coronary artery disease status post PCI, hypertension who presented to the emergency department because his speech difficulty. He is accompanied with his daughter. He reports that he was last normal at 10 PM last night. Then the when he woke up at 6 in the morning today he noted he's having some speech d ifficulty and then when his physical therapist came around 7:15am and she noticed significant speech difficulty. His speech was coming out wrong but was not slurring. He denies any focal weakness, numbness. His therapist felt he has facial weakness. He states that he had a similar episode in the past about 20 years ago. He is on Xarelto of unknown indication that was placed by his PCP. He was initially placed on Brilinta after his cardiac PCI then later his PCP stated he did not need Brilinta and placed him on Xarelto and did not know reason. He denies history of atrial fibrillation or flutter. He was seen by his mechanical technologist and it seem they did not question the use of Xarelto. Patient is on also on aspirin 81 daily and Lipitor 80 mg daily at bedtime. His symptoms lasted for 2-3 hours in total. Some of the workup during his hospital visit consisted of CBC with differential is unremarkable Initial serum glucose is 136, calcium is within normal limits. AST and ALT is within normal limits Urinalysis seems suggestive of urinary tract infection. CT head is reported as no acute intracranial process. Remote lacunar infarct along with nonspecific white matter changes likely secondary due to chronic microangiopathic. CT angiography of the head and neck was reported as no significant carotid bifurcation stenosis. No evidence of intracranial sizable aneurysm or significant stenosis. Ectasia of the visualized vasculature. Vascular thinking involving the mid right sided subclavian artery and the differential diagnosis. Degenerative and nonspecific white matter changes. Consider for acute ischemia correlate with MRI as clinically warranted. The ED the NIH stroke scale was a 0. No IV TPA since patient is on side the window and his symptoms has resolved. Review of Systems Review of system: The 12 point system was reviewed and apparent positive and negative per HPI. Past Medical History Past Medical History: Coronary Artery Disease (CAD), Hyperlipidemia, Hypertension, Myocardial Infarction (DC) Additional Past Medical History / Comment(s): "gallbladder caused jaundice- admitted to hospital June 2018",degenerative back disease, kidney stone History of Any Multi-Drug Resistant Organisms: None Reported Past Surgical History: Back Surgery, Cholecystectomy, Heart Catheterization With Stent Past Anesthesia/Blood Transfusion Reactions: No Reported Reaction Additional Past Anesthesia/Blood Transfusion Reaction / Comment(s): never has had general anesthesia or blood transfusion Past Psychological History: No Psychological Hx Reported Smoking Status: Never smoker Past Alcohol Use History: None Reported Past Drug Use History: None Reported - Past Family History Mother Family Medical History: No Reported History Father History Unknown: Yes Family Medical History: Pneumonia Additional Family Medical History / Comment(s): prostate cancer Medications and Allergies Home Medications Medication Instructions Recorded Confirmed Type Atorvastatin [Lipitor] 80 mg PO HS tab 11/16/19 12/13/21 Rx Metoprolol Tartrate [Lopressor] 25 mg PO BID tab 11/16/19 12/13/21 Rx Furosemide [Lasix] 20 mg PO TUTH 09/24/21 12/13/21 History Rivaroxaban [Xarelto] 2.5 mg PO BID 09/24/21 12/13/21 History Aspirin 81 mg PO DAILY 12/13/21 12/13/21 History Multivitamins, Thera [Multivitamin 1 tab PO DAILY 12/13/21 12/13/21 History (formulary)] amLODIPine [Norvasc] 2.5 mg PO DAILY 12/13/21 12/13/21 History Allergies Allergy/AdvReac Type Severity Reaction Status Date / Time No Known Allergies Allergy Verified 12/13/21 12:17 Physical Examination - Vital Signs Vital Signs: Vital Signs Pulse Resp BP Pulse Ox 12/13/21 10:11 86 18 127/94 12/13/21 08:05 84 18 139/112 98 Intake and Output 12/13/21 12/13/21 12/13/21 06:59 14:59 22:59 Other: Weight 90.718 kg GENERAL: The patient is lying in bed and is not in acute distress. CHEST: The heart rate is regular rate rhythm. No murmurs to auscultation. No carotid bruit bilaterally. LUNG: Clear to auscultation bilaterally no wheezing noted throughout. Not labored breathing. ABDOMEN/GI: Bowel sounds present in all 4 quadrants. No tenderness to palpation throughout. NEUROLOGICAL: Higher mental function: The patient is awake, alert, oriented to self, place and time. Patient is following commands. No aphasia and no neglect. Cranial nerves: The pupils are round, equal and reactive to light and accommodation. Visual zee are full to confrontation throughout. Extraocular movement is intact no nystagmus is noted. Facial sensation is normal to touch throughout. The facial strength is normal throughout. Hearing is mildly decreased bilaterally to hand rub. Tongue is midline and moved [id number] without any difficulty. No dysarthria is noted. Shoulder shrug is normal bilaterally. Motor: The strength is 5 over 5 throughout. Normal tone and bulk. Cerebellum: Normal finger to nose bilaterally. Sensation: Sensation is normal to touch throughout. Reflexes (right/left): 1+ throughout. Plantars are downgoing bilaterally. Results - Laboratory Findings CBC and BMP: 12/13/21 08:18 12/13/21 08:18 Abnormal Lab Findings: Abnormal Labs 12/13/21 12/13/21 12/13/21 08:18 08:18 08:23 PT 12.8 H INR 1.2 H Sodium 134 L Glucose 136 H POC Glucose (mg/dL) 127 H Total Bilirubin 3.2 H Alkaline Phosphatase 141 H Ur Specific [place] Urine Protein Urine Ketones Urine Blood Ur Leukocyte Esterase Urine RBC Urine WBC Urine Mucus 12/13/21 10:18 PT INR Sodium Glucose POC Glucose (mg/dL) Total Bilirubin Alkaline Phosphatase Ur Specific [place] 1.039 H Urine Protein 2+ H Urine Ketones Trace H Urine Blood Large H Ur Leukocyte Esterase Moderate H Urine RBC >182 H Urine WBC 80 H Urine Mucus Few H Assessment and Plan Assessment: Transient speech difficulty (aphasia) seems likely due to TIA History of stroke in past about 20 years ago On Xarelto of unknown reason that was placed by his PCP. History of coronary artery disease status post PCI Hypertension Kidney stone History of Lower back surgery Plan: MR the brain, 2-D echo, lipid panel, hemoglobin A1c is ordered and is pending Patient is continued on his home dose of Xarelto 2.5 mg twice a day and the aspirin was increased from 81 to 325mg daily. Recommend finding out if he still need use of Xarelto that was started by his PCP and according to him was discontinue off Brilinta after PCI. Continue Lipitor 80 mg daily at bedtime for secondary stroke prophylaxis Continue neuro checks On cardiac monitoring PT and OT and CLIENT REPORTING ASSOCIATE are consulted We'll defer the rest of the medical management to the primary team DVT prophylaxis patient is on Xarelto The plan is discussed with patient and his daughter. Thank you for the consultation Time with Patient: Greater than 30
[2021-12-13] MEDS ORDERED: ATORVASTATIN 80 MG TAB PO SCH (21:00)
[2021-12-13] MEDS: RIVAROXABAN 2.5 MG TABLET PO SCH (21:40)
[2021-12-14 06:20] LABS: Glucose,Whole Blood 102 mg/dL (70-110)
[2021-12-14] MEDS ORDERED: ASPIRIN 325 MG TAB PO SCH (09:00)
[2021-12-14] MEDS ORDERED: MULTIVITAMINS, THERA 1 EACH TAB PO SCH (09:00)
[2021-12-14] MEDS: RIVAROXABAN 2.5 MG TABLET PO SCH (09:12)
[2021-12-14 09:22] LABS: Basophils # (A) 0.1 k/uL (0-0.2); Basophils % (A) 1 %; Eosinophils # (A) 0.1 k/uL (0-0.7); Eosinophils % (A) 2 %; HCT 47.9 % (39.0-53.0); HGB 16.8 gm/dL (13.0-17.5); Lymphocytes # (A) 1.1 k/uL (1.0-4.8); Lymphocytes % (A) 14 %; MCH 31.9 pg (25.0-35.0); MCHC 35.2 g/dL (31.0-37.0); MCV 90.7 fL (80.0-100.0); Mean Platelet Volume 7.3; Monocytes # (A) 0.6 k/uL (0-1.0); Monocytes % (A) 7 %; Neutrophils % (A) 76 %; Platelet Count 190 k/uL (150-450); RBC 5.27 m/uL (4.30-5.90); RDW 13.6 % (11.5-15.5)
[2021-12-14 09:46] LABS: African American GFR (CKD) >90 (>60 ml/min/1.73 sqM); Blood Urea Nitrogen 17 mg/dL (9-20); Chloride 103 mmol/L (98-107); Glucose 150 mg/dL (74-99); Non-African American GFR(CKD) 85 (>60 ml/min/1.73 sqM); Potassium 4.6 mmol/L (3.5-5.1); Sodium 134 mmol/L (137-145)
[2021-12-14 09:47] LABS: Anion Gap 8 mmol/L; Carbon Dioxide 23 mmol/L (22-30)
--- NOTE | 2021-12-14 11:01 | P.PN ---
Subjective Progress Note Date: 12/14/21 The patient is seen at bedside and he feels he is back to baseline. No further speech difficulty. Denies any new neurological issues. Objective - Vital Signs Vital signs: Vital Signs Temp 98.1 F 12/14/21 04:50 Pulse 75 12/14/21 04:50 Resp 18 12/14/21 04:50 BP 100/72 12/14/21 04:50 Pulse Ox 95 12/14/21 04:50 FiO2 Intake & Output 12/13/21 12/14/21 12/14/21 18:59 06:59 18:59 Intake Total 118 Balance 118 Weight 90.718 kg Intake: Oral 118 Other: Voiding Method Urinal # Voids 1 # Bowel Movements 1 - Exam GENERAL: The patient is lying in bed and is not in acute distress. NEUROLOGICAL: Higher mental function: The patient is awake, alert, oriented to self, place and time. Patient is following commands. No aphasia and no neglect. Cranial nerves: The pupils are round, equal and reactive to light and accommodation. Visual zee are full to confrontation throughout. Extraocular movement is intact no nystagmus is noted. Facial sensation is normal to touch throughout. The facial strength is normal throughout. Hearing is mildly decreased bilaterally to hand rub. Tongue is midline and moved [id number] without any difficulty. No dysarthria is noted. Shoulder shrug is normal bilaterally. Motor: The strength is 5 over 5 throughout. Normal tone and bulk. Cerebellum: Normal finger to nose bilaterally. Sensation: Sensation is normal to touch throughout. Reflexes (right/left): 1+ throughout. Plantars are downgoing bilaterally. Some of the workup during his hospital visit consisted of CBC with differential is unremarkable Initial serum glucose is 136, calcium is within normal limits. AST and ALT is within normal limits Urinalysis seems suggestive of urinary tract infection. CT head is reported as no acute intracranial process. Remote lacunar infarct along with nonspecific white matter changes likely secondary due to chronic microangiopathic. CT angiography of the head and neck was reported as no significant carotid bifurcation stenosis. No evidence of intracranial sizable aneurysm or significant stenosis. Ectasia of the visualized vasculature. Vascular thinking involving the mid right sided subclavian artery and the differential diagnosis. Degenerative and nonspecific white matter changes. Consider for acute ischemia correlate with MRI as clinically warranted. - Labs CBC & Chem 7: 12/14/21 08:49 12/14/21 08:49 Labs: Abnormal Lab Results - Last 24 Hours (Table) 12/13/21 12/14/21 Range/Units 10:18 08:49 Sodium 134 L (137-145) mmol/L Glucose 150 H (74-99) mg/dL Ur Specific [place] 1.039 H (1.001-1.035) Urine Protein 2+ H (Negative) Urine Ketones Trace H (Negative) Urine Blood Large H (Negative) Ur Leukocyte Esterase Moderate H (Negative) Urine RBC >182 H (0-5) /hpf Urine WBC 80 H (0-5) /hpf Urine Mucus Few H (None) /hpf Microbiology - Last 24 Hours (Table) 12/13/21 10:18 Urine Culture - Preliminary Urine,Voided Assessment and Plan Assessment: Transient speech difficulty (aphasia) seems likely due to TIA History of stroke in past about 20 years ago On Xarelto of unknown reason that was placed by his PCP. History of coronary artery disease status post PCI Hypertension Kidney stone History of Lower back surgery Plan: MR the brain, 2-D echo, lipid panel, hemoglobin A1c are pending Patient is continued on his home dose of Xarelto 2.5 mg twice a day and the aspirin was increased from 81 to 325mg daily. Recommend finding out if he still need use of Xarelto that was started by his PCP and according to him was discontinue off Brilinta or Plavix after PCI. Continue Lipitor 80 mg daily at bedtime for secondary stroke prophylaxis Continue neuro checks On cardiac monitoring PT and OT and BASKET PATCHER are consulted We'll defer the rest of the medical management to the primary team DVT prophylaxis patient is on Xarelto Upon discharge, patient needs to follow-up with neurologist as outpatient within 1-2 weeks. The plan is discussed with patient and his nurse. Patient would like to go home today and he was notified, if the work-up is complete and comes back normal then he is clear from neurological perspective. Dr. Decker is providing neurology coverage this then Dr. Paz will start this Friday A.M. Time with Patient: Less than 30
--- NOTE | 2021-12-14 13:10 | CA ---
Transthoracic Echo Report Name: Jose Francisco Ahn Age: 76 Gender: M : 1945 Exam Date: 12/14/2021 09:50 Exam Location: [facility] Ht (in): 60 Wt (lb): 200 Ordering Physician: Tiffany Jones DO Attending/Referring Phys: [id number], Karen Map Colorer Christin Hernandez RDCS Procedure CPT: Indications: Thrombus Cardiac Hx: Technical Quality: Technically difficult study Contrast 1: Lumason Total Dose (mL): 3 Contrast 2: Total Dose (mL): MEASUREMENTS (Male / Female) Normal Values 2D ECHO RV Internal Dim ED PLAX 3.3 cm DOPPLER AV Peak Velocity 169.8 cm/s AV Peak Gradient 11.5 mmHg FINDINGS Left Ventricle Left ventricular ejection fraction is estimated at 50-55%. Right Ventricle Normal right ventricular size and function. Right Atrium Right atrium not well visualized. Left Atrium Left atrium not well visualized. Mitral Valve Mitral valve not well visualized. Aortic Valve Aortic valve not well visualized. Tricuspid Valve Tricuspid valve not well visualized. Pulmonic Valve Pulmonic valve not well visualized. Pericardium Aorta CONCLUSIONS Technically difficult study Left ventricular ejection fraction 50-55% without wall motion abnormalities No pericardial effusion Previewed by: Dr. Jose Verdin DO (Electronically Signed) Final Date: 14 December 2021 13:10
[2021-12-14 16:21] LABS: Chol/HDL Ratio 2.07 Ratio; LDL Cholesterol,Calculated 26.3 mg/dL (0.0-131.0); VLDL Calculation 12.16 mg/dL (5.00-40.00)
[2021-12-14 16:54] LABS: Glucose,Whole Blood 112 mg/dL (70-110)
[2021-12-14 17:11] VITALS: BP 148/86; PULSE 88; RESP 17; TEMP 97.7
--- NOTE | 2021-12-14 18:03 | P.DS ---
Providers Date of admission: 12/13/21 11:14 Expected date of discharge: 12/14/21 Attending physician: Lucrecia Wilkins MD Consults: 12/13/21 11:14 Consult Physician Urgent Consulting Provider: Moises Ramachandran Consult Reason/Comments: acute transient expressive aphasia, possible tia Do you want consulting provider notified?: Yes Primary care physician: Stated None Hospital Course: Discharge Diagnosis: Transient ischemic attack Prediabetes Coronary artery disease status post PCI Hypertension Dyslipidemia Known right sided nephrolithiasis with hematuria Left bundle branch block Hospital Course: Patient is a 76-year-old male with history of stroke years ago, on Xarelto for unknown indication, coronary artery disease status post PCI, hypertension, dyslipidemia, and kidney stones who presented to the emergency department with speech difficulties. The ER he was noted to have diastolic hypertension with a diastolic blood pressure of 112. Laboratory analysis was significant for bilirubin 3.2, and gross hematuria with UA that showed greater than [address] head shown remote lacunar infarct. Chest x-ray showed no acute process. CT of the head and neck demonstrated a vascular kink in the right sided subclavian artery as well as degenerative and nonspecific white matter changes. EKG demonstrated sinus rhythm with first-degree AV block and left bundle branch block. He is admitted for further monitoring. He had no episodes of atrial fibrillation on monitoring. He was seen by neurology. He underwent an echocardiogram which was unremarkable. He underwent MRI brain-formal read pending at time of discharge but negative per verbal report. Cholesterol levels were within normal limits. Hemoglobin A1c was mildly elevated at 6.2 consistent with pre-diabetes. I discussed with the patient importance of avoiding simple carbohydrates and continuing his low carbohydrate diet. I've asked him to follow up with Tati his primary nurse practitioner for repeat hemoglobin A1c testing in 6 months to ensure he does not convert to overt diabetes. Follow-up: Tati at [facility], Dr. Erickson of neurology Patient seen and examined at bedside. No recurrence of his speech difficulty, no unusual weakness, no unusual numbness or tingling Vital signs reviewed and stable. General: nontoxic, no distress, appears at stated age Derm: warm, dry Head: atraumatic, normocephalic, symmetric Eyes: EOMI, no lid lag, anicteric sclera Mouth: no lip lesion, mucus membranes moist Cardiovascular: S1S2 reg, no murmur, positive posterior tibial pulse bilateral, Lungs: CTA bilateral, no rhonchi, no rales , no accessory muscle use Abdominal: soft, nontender to palpation, no guarding, no appreciable organomegaly Ext: no gross muscle atrophy,trace edema, no contractures- ulnar deviation and button deformities of right hand Neuro: CN II-XI grossly intact, no focal neuro deficits Psych: Alert, oriented, appropriate affect A total of 25 minutes of time were spent preparing this complex discharge summary. Patient was discharged on 12/14/21. Patient Condition at Discharge: Stable Plan - Discharge Summary Discharge Rx Participant: No New Discharge Prescriptions: Continue Atorvastatin [Lipitor] 80 mg PO HS tab Metoprolol Tartrate [Lopressor] 25 mg PO BID tab Furosemide [Lasix] 20 mg PO TUTH amLODIPine [Norvasc] 2.5 mg PO DAILY Rivaroxaban [Xarelto] 2.5 mg PO BID Multivitamins, Thera [Multivitamin (formulary)] 1 tab PO DAILY Aspirin 81 mg PO DAILY Discharge Medication List Atorvastatin [Lipitor] 80 mg PO HS tab 11/16/19 [Rx] Metoprolol Tartrate [Lopressor] 25 mg PO BID tab 11/16/19 [Rx] Furosemide [Lasix] 20 mg PO TUTH 09/24/21 [History] Rivaroxaban [Xarelto] 2.5 mg PO BID 09/24/21 [History] Aspirin 81 mg PO DAILY 12/13/21 [History] Multivitamins, Thera [Multivitamin (formulary)] 1 tab PO DAILY 12/13/21 [History] amLODIPine [Norvasc] 2.5 mg PO DAILY 12/13/21 [History] Follow up Appointment(s)/Referral(s): Rachel Perez MD [REFERRING] - 2 Weeks Terrance George MD [STAFF PHYSICIAN] - 1 Week (Follow-up with Tati) Activity/Diet/Wound Care/Special Instructions: Activity: as tolerated Diet: consistent carb Special Instructions: You have pre diabetes, you should avoid simple carbs A1C (lab test) in 6 months with Tati to ensure you do not become diabetic Discharge Disposition: HOME SELF-CARE
--- NOTE | 2021-12-14 20:00 | MR ---
EXAMINATION TYPE: MR brain wo con DATE OF EXAM: 12/14/2021 COMPARISON: None HISTORY: Resolved expressive aphasia, stroke Multiplanar multiecho imaging of the brain performed without contrast. There is cerebral cortical atrophy. There is no mass effect or midline shift. No sign of intracranial hemorrhage. The diffusion images show no sign of an acute infarct. There is enlargement of the ventr icles. There is increased signal in the periventricular white matter. There are coalescent areas joselito uring up to 1 cm in thickness. The brainstem is intact. There is thinning of the corpus callosum. The re are defects in the corpus callosum consistent with old infarct. No evidence of posterior fossa mas s. There is some mucosal thickening in the maxillary sinuses. IMPRESSION: Nicolasa atrophy and chronic small vessel ischemia. Periventricular lacunar infarcts. Hydrocephalus. No e vidence of acute cortical infarct.
== END 2021-12-14 18:59 | disposition home or self-care (01) ==
LOC: EC 08:03 → 3SCARD 11:14
PROVIDERS: ADMIT Family Medicine; ATTEND Family Medicine
DX: G45.9 Transient cerebral ischemic attack, unspecified (principal); R73.03 Prediabetes; N20.0 Calculus of kidney; I10 Essential (primary) hypertension; E78.5 Hyperlipidemia, unspecified; I25.10 Atherosclerotic heart disease of native coronary artery without angina pectoris; I25.2 Old myocardial infarction; I67.2 Cerebral atherosclerosis; I77.819 Aortic ectasia, unspecified site; I44.0 Atrioventricular block, first degree; I44.7 Left bundle-branch block, unspecified; Z95.5 Presence of coronary angioplasty implant and graft; Z79.899 Other long term (current) drug therapy; Z79.01 Long term (current) use of anticoagulants; Z79.82 Long term (current) use of aspirin; Z90.49 Acquired absence of other specified parts of digestive tract; Z80.42 Family history of malignant neoplasm of prostate
CPT/HCPCS: 99285; 36415; 93005; 97161; 97165; 92610; 92523; 80061; 80053; 80048; 84484; 85025 ×2; 85610; 85730; 81001; 87086; 83036; 71046; 70496; 70450; 70498; 70551; G0378 ×2; C8929; Q9950; Q9967; 93306